=== PATIENT | female | born 1980 | race Caucasian/White ===

== ENCOUNTER → 2022-10-21 | Outpatient (CLI) | payer BC, SELFPAY ==
[2022-10-21 13:07] LABS: T3 Total - Triiodothyronine 1.15 ng/mL (0.6-1.81)
[2022-10-21 13:37] LABS: T4 Free Direct 1.13 ng/dL (0.76-1.46)
[2022-10-23 19:28] LABS: Thyroid Peroxidase AB 14 IU/mL (0-34)
== END | disposition home or self-care (01) ==
LOC: MTLAB 10:22
PROVIDERS: PCP Internal Medicine; Referring Provider Dermatology Pediatric Dermatology; Visit Provider Dermatology Pediatric Dermatology
DX: L50.3 Dermatographic urticaria (principal); E04.1 Nontoxic single thyroid nodule
CPT/HCPCS: 36415; 84439; 84443; 84480; 86376

== ENCOUNTER → 2023-03-29 | Outpatient (CLI) | payer BC, SELFPAY ==
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
== END | disposition home or self-care (01) ==
PROVIDERS: PCP Internal Medicine; Referring Provider Dermatology; Visit Provider Dermatology
DX: T63.511A Toxic effect of contact with stingray, accidental (unintentional), initial encounter (principal)
CPT/HCPCS: 73630; 87070; 87205

== ENCOUNTER → 2024-02-15 | Outpatient (CLI) | payer BC, SELFPAY ==
[2024-02-15 15:37] LABS: Absolute Lymphocyte Count 1.85 X10^3/uL (0.83-4.51); Basophil# 0.04 X10^3/uL; Basophil% 0.7 % (0-1); Eosinophil# 0.08 X10^3/uL; Eosinophils% 1.5 % (0-5); Hematocrit 40.6 % (37-47); Hemoglobin 13.1 g/dL (12.0-15.0); Lymphocyte # 1.85 X10^3/ul (0.83-4.51); Lymphocyte % 34.3 % (19-41); Mean Corp Hgb Conc 32.3 g/dL (32-36); Mean Corpuscular Hgb 30.6 pg (27.0-32.0); Mean Corpuscular Volume 94.9 fL (81-99); Mean Platelet Vol. 10.7 fl (6.2-12.0); Monocyte# 0.47 X10^3/uL; Monocyte% 8.7 % (0-10); NRBC Flagged by Analyzer 0 % (0-5); Neutrophil # 2.95 X10^3/uL (2.7-7.7); Neutrophil % 54.6 % (47-70); Platelet Count 278 K/mm3 (150-450); RBC Distribution Width CV 12.9 % (11.6-14.6); Red Blood Count 4.28 M/mm3 (4.2-5.4); White Blood Count 5.4 K/mm3 (4.4-11.0)
[2024-02-15 15:53] LABS: ALB/GLOB Ratio 1.2 RATIO (0.9-2.4); AST(SGOT) 16 U/L (15-37); Alanine Aminotransfer ALT/SGPT 18 U/L (13-56); Albumin, Serum 3.8 g/dL (3.2-5.0); Alkaline Phosphatase 38 U/L (45-117); Anion Gap 6 (5-15); BUN 10 mg/dL (7-18); BUN/Creat Ratio 13.3 RATIO (10-20); Calcium,Total 8.9 mg/dL (8.5-10.1); Chloride 107 mmol/L (98-107); Cholesterol 173 mg/dL (200); Creatinine, Serum 0.75 mg/dL (0.55-1.02); EST Glomerular Filtration Rate 90 mL/min (>60); Est Glom Filt Rate - Afr Amer 109 mL/min (>60); Globulin 3.3 g/dL (2.2-4.2); Glucose 92 mg/dL (74-106); High Density Lipoprotein 55 mg/dL; Potassium 3.6 mmol/L (3.5-5.1); Protein, Total 7.1 g/dL (6.4-8.2); Sodium Level 140 mmol/L (136-145); Triglycerides 102 mg/dL; Very Low Density Lipoprotein 20 mg/dL (5-40)
== END | disposition home or self-care (01) ==
LOC: MFPLAB 12:09
PROVIDERS: PCP Internal Medicine; Visit Provider Family Medicine
DX: Z13.220 Encounter for screening for lipoid disorders (principal); K21.9 Gastro-esophageal reflux disease without esophagitis
CPT/HCPCS: 36415; 80053; 80061; 85025

== ENCOUNTER 2024-10-02 07:41 | Outpatient (RCR) | payer OTHER, SELFPAY ==
--- NOTE | 2024-10-02 08:47 | HP.PTEVAL_ITS ---
Patient's Visit Information Visit Information Visit Information: WES MCGOVERN is a 44 year old F referred to Physical Therapy by JOHN Ferreira with a diagnosis of L lateral epicondylitis. Date of Evaluation: 10/02/24 Physical Therapist: Ashu Zacarias, DPT, OCS, CSCS Visit Plan Frequency: Every Other Week Duration: 2 Months Plan: Pt to do wrist extensor stretch adn aggressive cervical ret ext at home and check with OBGYN on armpit pain(appointment mid October) Will progress next session with eccentric wriwst strength adn further bracing or activity modifciaiton for lat epicondylitis. Progression of cervical progression of forces and strength for posture c/s RC and scap strength as needed for possible L shoulder impingement IE wrist extensor stretch 30 5x, cervical ret and ext with OP 10x 8x/day for scap, posture, activity modificaiton with driving and typing, benefits of brace for wrist. Subjective Subjective: Pain under la arm in armpit area. Had cyst last spring on breast and that turned out fine. Started getting pain under that arm this fall. OBGYN is f/u with breast tissue. pain is in the armpit since July insidiously. Also gets L lateral elbow pain starting 2 months ago insidiously. Armpit pain 2/10 intermittent with driving(drives with L arm up in the air. Worse with typing and driving while doing them. No lingering afterwards. Elbow pain 2/10 intermittent, with driving and typing. Neck pain is not an issue but L scapula noticeable. Sleeping is Ok. 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 Hobbies: walks. Basic ADLs all I. Pain armpit and elbow: Pain Intensity (Out of 10): 0 Pain Intensity Range: 0 and 2 Objective Objective: Postuer is forward head adn protracted sca slightly. Palpation is tender under humeral head in L arm pit and at supra insertion as well as slightly lat epicondyle L elbow and L scapula. Scapular AROM WFL B without pain. cervical aROM gives L scap pain end range extension only. Shoulder aROM WFL, slight end range pain flexion in arm pit, full rotations and elbow and wrist and thumb are full 2/3 reflexes R and L bi and tri No numbness or sensory deficitis to gross light touch in UE B. strength. shoulder without pain flexion and abduction 4- er pain under L armpit 3+ vs 4- on R, IR 4- B no pain. biceps and triceps 4/5 without pain wrist extension painful L 4 and R not painful and 4, 4+ wrist flexion B, thumb extension 4 B. + lat epicondyle test L + c/s compression L - HK, - neer, - sulcus, - labral test L. Balance/Special Test Scores Quick DASH Score: 2.2725 Goals Goal 1:: full cervical aROM without pain in scapula Goal Time Frame: 4-6 Weeks Goal 2:: I management of L lateral epicondylitis and upper half strength Goal Time Frame: 4-6 Weeks Goal 3:: Patient feel 75% better in all pain complain ts at scap, elbow and armpit. Goal Time Frame: 4-6 Weeks Goal 4:: perfect quickdash score. Goal Time Frame: 4-6 Weeks Rehabilitation Potential Physical Therapy Diagnosis: L elbow, scap and armpit pain causing uncomfortable funciton Rehabilitation Potential: Fair Anticipated Interventions Patient/Client Instruction: Educate patient on: Condition and Plan of Care For the Purpose of:: To decrease pain, To increase ROM, To improve nutrient delivery to tissue and To increase tolerance to activity/condition/position Therapeutic Exercise to Include: Strength training, Postural training, Flexibilty training, Passive ROM and Active ROM For the Purpose of:: To decrease pain, To increase ROM, To improve nutrient delivery to tissue, To improve muscle performance and motor function, To increase tolerance to activity/condition/position and To increase flexibili ty/ROM Manual Therapy Techniques to Include: Mobilization, Passive ROM, Soft tissue mobilization and Other For the Purpose of:: To decrease pain, To increase ROM, To improve nutrient delivery to tissue, To improve muscle performance and motor function and To increase tolerance to activity/condition/position Cryotherapy (ice pack, ice massage): Yes For the Purpose of:: To decrease swelling/inflammation Text: Thank you for the opportunity to evaluate your patient. For Medicare and Medicare HMO plans, please review the plan of care and approve it. It will need to be FAXED BACK to us at [phone] for Medicare purposes. For Medicare only, by signing this I certify the plan of care. Please let me know if there are questions or concerns regarding this plan of care. Physician Signature: Date:
--- NOTE | 2024-12-04 14:10 | HP.PT.NRP ---
Patient Information Patient Information: WES MCGOVERN was seen in my office for initial evaluation on 10/02/24. The following Plan of Care was established for this patient: POC Established Initial Frequency: Every Other Week Initial Duration: 2 Months Anticipated Interventions Patient/Client Instruction: Educate patient on: Condition and Plan of Care For the Purpose of:: To decrease pain, To increase ROM, To improve nutrient delivery to tissue and To increase tolerance to activity/condition/position Therapeutic Exercise to Include: Strength training, Postural training, Flexibilty training, Passive ROM and Active ROM For the Purpose of:: To decrease pain, To increase ROM, To improve nutrient delivery to tissue, To improve muscle performance and motor function, To increase tolerance to activity/condition/position and To increase flexibility/ROM Manual Therapy Techniques to Include: Mobilization, Passive ROM, Soft tissue mobilization and Other For the Purpose of:: To decrease pain, To increase ROM, To improve nutrient delivery to tissue, To improve muscle performance and motor function and To increase tolerance to activity/condition/position Cryotherapy (ice pack, ice massage): Yes For the Purpose of:: To decrease swelling/inflammation Last Seen Last Seen: This patient was last seen in our office 10/02/24. Pertinent comments regarding their Physical therapy will appear below: Pt seen for IE and POC established and HEP given. she cancelled her next visit stating the exercises were really helping. she did not attnd any further visits. It has been over two months and I will discontinue from my care. At this point I will be discontinuing this patient from physical therapy. I would be happy to see this patient again in the future if found appropriate by the physician. Thank you! Ashu Zacarias, DPT, OCS, CSCS Balance/Gait/Functional tests Balance/Special Test Scores Quick DASH Score: 2.7205
== END 2024-10-02 19:00 | disposition home or self-care (01) ==
LOC: PT 07:41
PROVIDERS: PCP Internal Medicine
DX: M77.12 Lateral epicondylitis, left elbow (principal); M25.512 Pain in left shoulder
CPT/HCPCS: 97110; 97162

== ENCOUNTER → 2025-05-16 | Outpatient (CLI) | payer OTHER, SELFPAY ==
[2025-05-16 12:29] LABS: Hematocrit 40.7 % (37-47); Hemoglobin 12.9 g/dL (12.0-15.0); Immature Granulocytes Count 0.020 X10^3/uL (0.0-0.0); Mean Corp Hgb Conc 31.7 g/dL (32-36); Mean Corpuscular Volume 96.9 fL (81-99); Mean Platelet Vol. 10.4 fl (6.2-12.0); NRBC Flagged by Analyzer 0 % (0-5); Platelet Count 268 K/mm3 (150-450); RBC Distribution Width CV 12.6 % (11.6-14.6); RBC Distribution Width SD 45.0 fl (35.1-43.9); Red Blood Count 4.20 M/mm3 (4.2-5.4); White Blood Count 7.9 K/mm3 (4.4-11.0)
[2025-05-16 13:30] LABS: AST(SGOT) 15 U/L (<=31); Alanine Aminotransfer ALT/SGPT 11 U/L (<=34); Albumin, Serum 4.1 g/dL (3.5-5.0); Alkaline Phosphatase 49 U/L (35-104); Anion Gap 12 (5-15); BUN 7 mg/dL (4-19); BUN/Creat Ratio 9.1 RATIO (10-20); Calcium,Total 9.1 mg/dL (7.6-11.0); Carbon Dioxide 24.0 mmol/L (21.0-32.0); Chloride 101 mmol/L (98-108); Globulin 2.9 g/dL (2.2-4.2); Glucose 115 mg/dL (70-99); Potassium 3.4 mmol/L (3.3-5.1)
== END | disposition home or self-care (01) ==
LOC: MFPLAB 10:26
PROVIDERS: PCP Family Medicine
DX: R53.83 Other fatigue (principal)
CPT/HCPCS: 36415; 80053; 84443; 85025

== ENCOUNTER → 2025-05-17 | Outpatient (CLI) | payer OTHER, SELFPAY ==
[2025-05-17 18:29] LABS: Hematocrit 39.2 % (37-47); Hemoglobin 12.9 g/dL (12.0-15.0); Immature Granulocytes Count 0.030 X10^3/uL (0.0-0.0); Mean Corp Hgb Conc 32.9 g/dL (32-36); Mean Corpuscular Volume 94.0 fL (81-99); Mean Platelet Vol. 10.4 fl (6.2-12.0); NRBC Flagged by Analyzer 0 % (0-5); Platelet Count 262 K/mm3 (150-450); RBC Distribution Width CV 12.5 % (11.6-14.6); RBC Distribution Width SD 43.5 fl (35.1-43.9); Red Blood Count 4.17 M/mm3 (4.2-5.4); White Blood Count 7.0 K/mm3 (4.4-11.0)
[2025-05-17 18:37] LABS: CRP 67.10 mg/L (0.0-3.0)
[2025-05-19 11:08] LABS: Lyme Scn Total Ab w/Rflx Negative (Negative)
== END | disposition home or self-care (01) ==
LOC: MFPLAB 16:01
PROVIDERS: PCP Family Medicine; Referring Provider Family Medicine; Visit Provider Family Medicine
DX: R53.81 Other malaise (principal)
CPT/HCPCS: 36415; 85025; 86140; 86618

== ENCOUNTER → 2025-06-12 | Outpatient (CLI) | payer OTHER, SELFPAY ==
--- NOTE | 2025-06-12 17:00 | RAD_ITS ---
PROCEDURE: CHEST PA AND LATERAL 06/12/2025 REASON FOR EXAM: COUGH TECHNIQUE: CHEST PA AND LATERAL COMPARISON: None. FINDINGS: LUNGS AND PLEURA: No focal airspace consolidation. Minimal biapical pleural thickening. No pleural effusion or pneumothorax. HEART AND MEDIASTINUM: The heart size and mediastinal contours are normal. BONES: No acute osseous abnormality. RAD/Chest PA and Lateral IMPRESSION: NO ACUTE FINDINGS. Reading Location: [id number]
[2025-06-12 17:59] LABS: Hematocrit 40.9 % (37-47); Hemoglobin 13.4 g/dL (12.0-15.0); Immature Granulocytes Count 0.020 X10^3/uL (0.0-0.0); Mean Corp Hgb Conc 32.8 g/dL (32-36); Mean Corpuscular Volume 94.7 fL (81-99); Mean Platelet Vol. 10.4 fl (6.2-12.0); NRBC Flagged by Analyzer 0 % (0-5); Platelet Count 267 K/mm3 (150-450); RBC Distribution Width CV 12.7 % (11.6-14.6); RBC Distribution Width SD 44.8 fl (35.1-43.9); Red Blood Count 4.32 M/mm3 (4.2-5.4); White Blood Count 7.3 K/mm3 (4.4-11.0)
[2025-06-14 15:08] LABS: PROEL- A/G Ratio 1.5 (0.7-1.7); PROEL- Albumin 4.3 g/dL (2.9-4.4); PROEL- Alpha-1 Globulin 0.2 g/dL (0.0-0.4); PROEL- Alpha-2 Globulin 0.7 g/dL (0.4-1.0); PROEL- Beta Globulin 0.9 g/dL (0.7-1.3); PROEL- Gamma Globulin 1.0 g/dL (0.4-1.8); PROEL- Globulin, Total 2.8 g/dL (2.2-3.9); PROEL- TOTAL PROTEIN 7.1 g/dL (6.0-8.5); PROEL-M-Spike Not Observed g/dL (Not Observed)
[2025-06-15 14:08] LABS: ANTINUCLEAR ANTIBODIES DIRECT Negative (Negative); Anti-Chromatin <0.2 AI (0.0-0.9); Anti-Jo <0.2 AI (0.0-0.9); Anti-dsDNA Ab <1 IU/mL (0-9); Anti-ribosomal P Antibodies <0.2 AI (0.0-0.9); SJOGREN'S Anti-SS-A test < 0.2 AI (0.0-0.9); SJOGREN'S Anti-SS-B test < 0.2 AI (0.0-0.9); Smith/RNP Ab <0.2 AI (0.0-0.9)
== END | disposition home or self-care (01) ==
PROVIDERS: PCP Family Medicine; Referring Provider Family Medicine; Visit Provider Family Medicine
DX: R05.9 Cough, unspecified (principal); R79.82 Elevated C-reactive protein (CRP)
CPT/HCPCS: 36415; 71046; 84165; 84443; 85025; 85652; 86038; 86225; 86235; 86431

== ENCOUNTER → 2025-10-05 | Outpatient (CLI) | payer OTHER, SELFPAY ==
--- OUTSIDE RECORDS SUMMARY | 2025-10-05 10:58 | XMS RPT_ITS | CCD ---
Author Organization [facility] Care Team Providers Care X Ray Technologist Name Role Phone Marvel VILLALOBOS, Mere Primary Care Provider SELF, SELF Referring Unavailable GANTA, MERE C Primary Care Unavailable CECE GILMORE Attending Unavaila ble CONSULT, PODIATRY Consulting Unavailable GANTA, MERE C Primary Care Unavailable MURALI FLORIAN Attending Unavailable Mere Grier MD Primary Care Provider REGINE PEÑA Referring Unavailable GANTA, MERE Primary Care Unavailable HOMA PACE Attending Unavailable GANTA, MERE Primary Care Unavailable PUSHPA LARIOS Referring Unavailable Mere Grier MD Primary Care Provider Manuela Quintanilla PA-C Unavailable Older SLOT FLOOR ATTENDANT.RECEPTIONIST/TELEPHONE OPERATOR, Alina Unavailable Tessa Burt PA-C Unavailable REGINE PEÑA Attending Unavailable GANTA, MERE Primary Care Unavailable SUMAN MOREIRA Attending Unavailable GANTA, MERE Primary Care Unavailable REGINE PEÑA Referring Unavailable GANTA, MERE Primary Care Unavailable REGINE PEÑA Referring Unavailable GANTA, MERE Primary Care Unavailable PROVIDER, UNKNOWN Referring Unavailable GANTA, MERE Primary Care Unavailable PROVIDER, UNKNOWN Referring Unavailable GANTA, MERE Primary Care Unavailable Dr. Ashu Richard MD Primary Care Provider [facility] [place] Attending Provider Dr. Ashu Richard MD Attending Provider [phone] Dr. Ashu Richard MD Referring Provider Ashu Richard Attending Unavailable Ashu Richard Primary Care Unavailable Ashu Richard Referring Unavailable Ashu Richard Primary Care Unavailable McMorrow GRAIN ELEVATOR MAN, Hamlet Attending Unavailable Mere Grier Primary Care Unavailable McMorrow GRAIN ELEVATOR MANHamlet Referring Unavailable McMorrow GRAIN ELEVATOR MAN, Hamlet Attending Unavailable Ashu Richard Attending Unavailable Ashu Richard Primary Care Unavailable Ashu Richard Referring Unavailable Medications Current Medications Medication Drug Class(es) Dates Sig (Normalized) Sig (Original) cefdinir 300 mg oral capsule (1 source) Cephalosporin Antibacterial take 1 capsule by mouth every twelve hours Cefdinir (OMNICEF) 300 MG capsule Take 1 capsule by mouth every 12 hours. 0 Active desogestrel 0.15 mg / ethinyl estradiol 0.03 mg oral tablet (1 source) Progestin, Estrogen Start: 06-28-2014 desogestrel-ethiny l estradiol (APRI) 0.15-30 MG-MCG Tab take 1 tablet by mouth daily. 28 tablet 11 06/28/2014 Active doxycycline monohydrate 100 mg oral capsule (1 source) Tetracycline-class Drug take 1 capsule by mouth every twelve hours Doxycycline monohydrate 100 MG capsule Take 1 capsule by mouth every 12 hours. 0 Active levoFLOXacin 750 mg oral tablet (1 source) Quinolone Antimicrobial Start: 04-04-2023 End: 04-14-2023 take 1 tablet by mouth every twenty-four hours levoFLOXacin 750 MG tablet Take 1 tablet by mouth every 24 hours for 10 days. 10 tablet 0 04/04/2023 04/14/2023 Active linezolid 600 mg oral tablet (2 sources) Oxazolidinone Antibacterial Start: 04-03-2023 End: 04-14-2023 take 1 tablet by mouth twice daily Linezolid 600 MG tablet Take 1 tablet by mouth 2 times daily for 10 days. 20 tablet 0 04/04/2023 04/14/2023 Active Completed/Discontinued Medications Medication Drug Class(es) Dates Sig (Normalized) Sig (Original) acetaminophen 325 mg oral tablet (1 source) Start: 04-02-2023 End: 04-04-2023 take 1 tablet by mouth every four hours as needed Acetaminophen (TYLENOL) tablet 650 mg aluminum hydroxide 40 mg/ml / magnesium hydroxide 40 mg/ml / simethicone 4 mg/ml oral suspension (1 source) Start: 04-02-2023 End: 04-04-2023 take 30 mL by mouth every six hours as needed alum/mag hydrox.-simethicon e oral suspension 30 mL cefepime 2000 mg injection (2 sources) Cephalosporin Antibacterial Start: 04-03-2023 End: 04-04-2023 take 2 g intravenously every eight hours ceFEPIme (MAXIPIME) 2 g in dextrose 100 ml premix IVPB gadoterate Meglumine (DOTAREM) 5 MMOL/10ML injection 3-60 mL (1 source) Start: 04-02-2023 End: 04-02-2023 gadoterate Meglumine (DOTAREM) 5 MMOL/10ML injection 3-60 mL 10 ml sodium chloride 9 mg/ml injection (1 source) Start: 04-02-2023 End: 04-02-2023 Sodium chloride (PF) 0.9 % injection 1-100 mL Start: 04-02-2023 End: 04-02-2023 Sodium chloride (PF) 0.9 % i njection 1-100 mL 200 ml vancomycin 5 mg/ml injection (1 source) Glycopeptide Antibacterial Start: 04-02-2023 End: 04-03-2023 take 1000 mg intravenously every twelve hours Vancomycin HCl in NaCl (VANCOCIN) 1,000 mg in 200 ml NS premix IVPB Vancomycin HCl in NaCl (Vancocin) 1,250 mg 287.5 ml premade IVPB (1 source) Start: 04-02-2023 End: 04-02-2023 Vancomycin HCl in NaCl (Vancocin) 1,250 mg 287.5 ml premade IVPB Problems Active Problems Problem Classification Problem Date Documented Da te Episodic/Chronic Gastrointestinal hemorrhage (1 source) Rectal hemorrhage; Translations: [Hemorrhage of anus and rectum] Episodic Immunizations and screening for infectious disease (7 sources) Patient encounter status; Translations: [Encounter for screening for human immunodeficiency virus [HIV]] Episodic Malaise and fatigue (2 sources) Other malaise; Translations: [Other fatigue] Onset: 5 Episodic Nonmalignant breast conditions (9 sources) Pain of breast; Translations: [Mastodynia] Onset: 5 Episodic Other injuries and conditions due to external causes (1 source) Injury of right foot; Translations: [Unspecified injury of right foot, initial encounter] 04-03-2023 Episodic Other injuries and conditions due to external causes (2 sources) Unspecified injury of right foot, initial encounter; Translations: [Unspecified injury of right foot, initial encounter] Onset: 3 Episodic Residual codes; unclassified (4 sources) Family history of breast cancer; Translations: [Family history of malignant neoplasm of breast] Onset: 4 06-28-2014 Episodic Residual codes; unclassified (2 sources) Family history of malignant neoplasm of ovary; Translations: [Family history of malignant neoplasm of ovary] Onset: 4 06-28-2014 Episodic Residual codes; unclassified (1 source) Family history of malignant neoplasm of ovary; Translations: [Family history of malignant neoplasm of ovary] Onset: 3 Episodic Unclassified (1 source) Cough, unspecified; Translations: [Cough, unspecified] Onset: 5 Past or Other Problems Problem Classification Problem Date Documented Da te Episodic/Chronic Other connective tissue disease (1 source) Lateral epicondylitis, unspecified elbow; Translations: [Lateral epicondylitis, unspecified elbow] Onset: 12-08-2024 Episodic Other female genital disorders (18 sources) Endocervical polyp; Translations: [Polyp of cervix uteri] Onset: 06-20-2015 06-20-2015 Episodic Other non-traumatic joint disorders (1 source) Pain in left shoulder; Translations: [Pain in left shoulder] Onset: 12-08-2024 Episodic Other and delivery including normal (1 source) Normal ; Translations: [Encounter for supervision of other normal , unspecified trimester] Onset: 06-21-2012 06-21-2012 Episodic Other screening for suspected conditions (not mental disorders or infectious disease) (5 sources) Mammography abnormal; Translations: [Other abnormal and inconclusive findings on diagnostic imaging of breast] Onset: 01-19-2024 01-20-2024 Episodic Residual codes; unclassified (2 sources) Family history of malignant neoplasm of breast; Translations: [Family history of malignant neoplasm of breast] Onset: 07-16-2023 Episodic Results Test Name Value Interpretation Reference Range Facility [id number] 06-19-2025 [facility] Misc. COMMENT Normal . [facility] Comment on above: Order Comment: [id number] TICKBORNE PANEL SERUM RT Result Comment: Test Ordered: [id number] Tick-borne Disease Ab Profile Test(s) 807338-[id number] microti IgG was developed and its performance characteristics determined by [facility]. It has not been cleared or approved by the Food and Drug Administration. Lyme Total Antibody HAWA Negative CB Reference Range: Negative Lyme antibodies not detected. Reflex testing is not indicated. No laboratory evidence of infection with B. burgdorferi (Lyme disease). Negative results may occur in patients recently infected (less than or equal to 14 days) with B. burgdorferi. If recent infection is suspected, repeat testing on a new sample collected in 7 to 14 days is recommended. Babesia microti IgG <1:10 BN Reference Range: Neg:<1:10 E. chaffeensis IgG Negative BN Reference Range: Neg:<1:64 A. phagocytophilum IgG Negative BN Reference Range: Neg:<1:64 Result Comments: Comment BN Reference Range: . Antibody titers may be negative in the first 7-10 days of illness. A four-fold rise in IgG antibody titers for Babesia microti, Anaplasma phagocytophilum, and/or Ehrlichia chaffeensis in paired samples (acute and convalescent) supports the diagnosis of babesiosis, anaplasmosis, and/or ehrlichiosis, respectively. Performed at: [address] [id number] Career And Technology Education Teacher: Rosas Molina PhD, Phone: [phone] Performed at: [address] [id number] Career And Technology Education Teacher: Michelle Nichols MD, Phone: [phone] Performed By: #### L 3100.5660, L3100.7950, L101.9900, L3100.5475, L3100.5430, L501.9520, L505.7010, L100.0100, L3410.9992 #### [facility] [address] [place], [address] ANNALISA w/Comprehensiveon 2024 ANNALISA TABLE Comment Normal . [facility] Comment on above: Result Comment: Auto antibody Disease Association Condition Frequency Antinuclear Antibody, SLE, mixed connective Direct (ANNALISA-D) tissue diseases dsDNA SLE 40 - 60% Chromatin Drug induced SLE 90% SLE 48 - 97% SSA (Ro) SLE 25 - 35% Sjogren's Syndrome 40 - 70% Lupus 100% SSB (La) SLE 10% Sjogren's Syndrome 30% Sm (anti-Richard) SLE 15 - 30% INSTRUCTIONAL SERVICES SPECIALIST Mixed Connective Tissue Disease 95% (U1 nRNP, SLE 30 - 50% anti-ribonucleoprotein) Polymyositis and/or Dermatomyositis 20% Scl-70 (antiDNA Scleroderma (diffuse) 20 - 35% topoisomerase) Crest 13% Margaret-1 Polymyositis and/or Dermatomyositis 20 - 40% Centromere B Scleroderma - Crest variant 80% Ribosomal P SLE 10 - 20% Performed By: #### L 3100.3450, L3100.7950, L101.9900, L3100.5475, L3100.5430, L501.9520, L505.7010, L100.0100, L3410.9992 #### [facility] [address] [place], [address] ANTI-DNA (DS)AB <1 Normal 0-9 [facility] Comment on above: Result Comment: Nega tive <5 Equivocal 5 - 9 Positive >9 Performed By: #### L 3100.3450, L3100.7950, L101.9900, L3100.5475, L3100.5430, L501.9520, L505.7010, L100.0100, L3410.9992 #### [facility] [address] [place], [address] ANTI-SS-A < 0.2 Normal 0.0-0.9 [facility] Comment on above: Performed By: #### L 3100.3450, L3100.7950, L101.9900, L3100.5475, L3100.5430, L501.9520, L505.7010, L100.0100, L3410.9992 #### [facility] [address] [place], [address] ANTI-SS-B < 0.2 Normal 0.0-0.9 [facility] Comment on above: Performed By: #### L 3100.3450, L3100.7950, L101.9900, L3100.5475, L3100.5430, L501.9520, L505.7010, L100.0100, L3410.9992 #### [facility] [address] [place], [address] Antiribosomal P <0.2 Normal 0.0-0.9 [facility] Comment on above: Performed By: #### L 3100.3450, L3100.7950, L101.9900, L3100.5475, L3100.5430, L501.9520, L505.7010, L100.0100, L3410.9992 #### [facility] [address] [place], [address] ANTINUCLEAR ANTIBODIES DIREC Ton 06-15-2025 ANNAILSA,DIRECT Negative Normal Negative [facility] Comment on above: Performed By: #### L 3100.3450, L3100.7950, L101.9900, L3100.5475, L3100.5430, L501.9520, L505.7010, L100.0100, L3410.9992 #### [facility] [address] [place], [address] Antinuclear Antibody, IFAon 06-15-2025 ANNALISA, IFA Negative Normal . [facility] Comment on above: Result Comment: Nega tive <1:80 Borderline 1:80 Positive >1:80 ICAP nomenclature: AC-0 For more information about Hep-2 cell patterns use ANApatterns.org, the official website for the International Consensus on Antinuclear Antibody (ANNALISA) Patterns (ICAP). Performed at: [facility] [id number] Career And Technology Education Teacher: Rosas Molina PhD, Phone: [phone] Performed By: #### L 3100.3450, L3100.7950, L101.9900, L3100.5475, L3100.5430, L501.9520, L505.7010, L100.0100, L3410.9992 #### [facility] [address] [place], [address] Protein Electroph, Son 06-14 Albumin [Mass/Vol] 4.3 g/dL Normal 2.9-4.4 [facility] Comment on above: Performed By: #### L 3100.3450, L3100.7950, L101.9900, L3100.5475, L3100.5430, L501.9520, L505.7010, L100.0100, L3410.9992 #### [facility] [address] [place], [address] Albumin/Globulin [Mass ratio] 1.5 {ratio} Normal 0.7-1.7 [facility] Comment on above: Performed By: #### L 3100.3450, L3100.7950, L101.9900, L3100.5475, L3100.5430, L501.9520, L505.7010, L100.0100, L3410.9992 #### [facility] [address] [place], [address] ALPHA-1 GLOBUL 0.2 g/dL Normal 0.0-0.4 [facility] Comment on above: Performed By: #### L 3100.3450, L3100.7950, L101.9900, L3100.5475, L3100.5430, L501.9520, L505.7010, L100.0100, L3410.9992 #### [facility] [address] [place] [place], [address] ALPHA-2 GLOBUL 0.7 g/dL Normal 0.4-1.0 [facility] Comment on above: Performed By: #### L 3100.3450, L3100.7950, L101.9900, L3100.5475, L3100.5430, L501.9520, L505.7010, L100.0100, L3410.9992 #### [facility] [address] [facility] [place], [address] BETA GLOBULIN 0.9 g/dL Normal 0.7-1.3 [facility] Comment on above: Performed By: #### L 3100.3450, L3100.7950, L101.9900, L3100.5475, L3100.5430, L501.9520, L505.7010, L100.0100, L3410.9992 #### [facility] [address] [facility] [place], [address] GAMMA GLOBULIN 1.0 g/dL Normal 0.4-1.8 [facility] Comment on above: Performed By: #### L 3100.3450, L3100.7950, L101.9900, L3100.5475, L3100.5430, L501.9520, L505.7010, L100.0100, L3410.9992 #### [facility] [address] [facility] [place], [address] Globulin (S) [Mass/Vol] 2.8 g/dL Normal 2.2-3.9 [facility] Comment on above: Performed By: #### L 3100.3450, L3100.7950, L101.9900, L3100.5475, L3100.5430, L501.9520, L505.7010, L100.0100, L3410.9992 #### [facility] [address] [place], [address] INTERPRETATION Comment Normal . [facility] Comment on above: Result Comment: Prot ein electrophoresis scan will follow via computer, mail, or neurosurgeon delivery. Performed By: #### L 3100.3450, L3100.7950, L101.9900, L3100.5475, L3100.5430, L501.9520, L505.7010, L100.0100, L3410.9992 #### [facility] [address] [place], [address] M-SPIKE Not Observed Normal Not Observed [facility] Comment on above: Performed By: #### L 3100.3450, L3100.7950, L101.9900, L3100.5475, L3100.5430, L501.9520, L505.7010, L100.0100, L3410.9992 #### [facility] [address] [place], [address] NOTE: Comment Normal . [facility] Comment on above: Result Comment: The SPE pattern appears unremarkable. Evidence of monoclonal protein is not apparent. Performed at: [address] [id number] Career And Technology Education Teacher: Rosas Molina PhD, Phone: [phone] Performed By: #### L 3100.3450, L3100.7950, L101.9900, L3100.5475, L3100.5430, L501.9520, L505.7010, L100.0100, L3410.9992 #### [facility] [address] [place], [address] Protein [Mass/Vol] 7.1 g/dL Normal 6.0-8.5 [facility] Comment on above: Performed By: #### L 3100.3450, L3100.7950, L101.9900, L3100.5475, L3100.5430, L501.9520, L505.7010, L100.0100, L3410.9992 #### [facility] [address] [place], [place], [id number] Absolute lymphocyte countOrd ered By: Ashu Richard on 06-12-2025 Lymphocytes Auto (Unsp spec) [#/Vol] 2.09 10*3/uL 0.83-4.51 [facility] Absolute neutrophil countOrd ered By: Ashu Richard on 06-12-2025 Neutrophils (Bld) [#/Vol] 4.5 10*3/uL 2.0-7.7 [facility] Albumin Elph [Mass/Vol]Order ed By: Ashu Richard on 06-12-2025 Albumin [Mass/Vol] 4.3 g/dL 2.9-4.4 [facility] Automated lymphocyte count a s percentage of total leukocytesOrdered By: Ashu Richard on 06-12-2025 Lymphocytes/100 WBC Auto (Unsp spec) 28.7 % 19-41 [facility] Basophil percentageOrdered B y: Ashu Richard on 06-12-2025 Basophils/100 WBC (Bld) 0.7 % 0-1 [facility] CBC W/Diff, Automatedon 05-19 Absolute Lymph 2.09 X10 3/uL Normal 0.83-4.51 [facility] Comment on above: Performed By: #### L 3100.3450, L3100.7950, L101.9900, L3100.5475, L3100.5430, L501.9520, L505.7010, L100.0100, L3410.9992 #### [facility] [address] [place], [place], [id number] Absolute Neut 4.5 X10 3/uL Normal 2.0-7.7 [facility] Comment on above: Performed By: #### L 3100.3450, L3100.7950, L101.9900, L3100.5475, L3100.5430, L501.9520, L505.7010, L100.0100, L3410.9992 #### [facility] [address] [place], [address] Basophils/100 WBC (Bld) 0.7 % Normal 0-1 [facility] Comment on above: Performed By: #### L 3100.3450, L3100.7950, L101.9900, L3100.5475, L3100.5430, L501.9520, L505.7010, L100.0100, L3410.9992 #### [facility] [address] [place], [address] Eosinophils/100 WBC (Bld) 1.4 % Normal 0-5 [facility] Comment on above: Performed By: #### L 3100.3450, L3100.7950, L101.9900, L3100.5475, L3100.5430, L501.9520, L505.7010, L100.0100, L3410.9992 #### [facility] [address] [place], [place], [id number] (904) Erythrocyte distribution width (RBC) [Ratio] 12.7 % Normal 11.6-14.6 [facility] Comment on above: Performed By: #### L 3100.3450, L3100.7950, L101.9900, L3100.5475, L3100.5430, L501.9520, L505.7010, L100.0100, L3410.9992 #### [facility] [address] [place], [address] Hematocrit (Bld) [Volume fraction] 40.9 % Normal 37-47 [facility] Comment on above: Performed By: #### L 3100.3450, L3100.7950, L101.9900, L3100.5475, L3100.5430, L501.9520, L505.7010, L100.0100, L3410.9992 #### [facility] [address] [place], [address] Hemoglobin (Bld) [Mass/Vol] 13.4 g/dL Normal 12.0-15.0 [facility] Comment on above: Performed By: #### L 3100.3450, L3100.7950, L101.9900, L3100.5475, L3100.5430, L501.9520, L505.7010, L100.0100, L3410.9992 #### [facility] [address] [place], [address] IG% 0.300 Normal 0.0-0.9 [facility] Comment on above: Result Comment: IG% - Immature Granulocytes (promyelocytes, myelocytes and metamyelocytes) > 1% indicates that a LEFT SHIFT is Present. Performed By: #### L 3100.3450, L3100.7950, L101.9900, L3100.5475, L3100.5430, L501.9520, L505.7010, L100.0100, L3410.9992 #### [facility] [address] [place], [address] Lymphocytes/100 WBC (Bld) 28.7 % Normal 19-41 [facility] Comment on above: Performed By: #### L 3100.3450, L3100.7950, L101.9900, L3100.5475, L3100.5430, L501.9520, L505.7010, L100.0100, L3410.9992 #### [facility] [address] [place], [address] MCH (RBC) [Entitic mass] 31.0 pg Normal 27.0-32.0 [facility] Comment on above: Performed By: #### L 3100.3450, L3100.7950, L101.9900, L3100.5475, L3100.5430, L501.9520, L505.7010, L100.0100, L3410.9992 #### [facility] [address] [place], [address] MCHC (RBC) [Mass/Vol] 32.8 g/dL Normal 32-36 [facility] Comment on above: Performed By: #### L 3100.3450, L3100.7950, L101.9900, L3100.5475, L3100.5430, L501.9520, L505.7010, L100.0100, L3410.9992 #### [facility] [address] [place], [address] MCV (RBC) [Entitic vol] 94.7 fL Normal 81-99 [facility] Comment on above: Performed By: #### L 3100.3450, L3100.7950, L101.9900, L3100.5475, L3100.5430, L501.9520, L505.7010, L100.0100, L3410.9992 #### [facility] [address] [place], [address] Monocytes/100 WBC (Bld) 7.7 % Normal 0-10 [facility] Comment on above: Performed By: #### L 3100.3450, L3100.7950, L101.9900, L3100.5475, L3100.5430, L501.9520, L505.7010, L100.0100, L3410.9992 #### [facility] [address] [place], [address] Neutrophils/100 WBC (Bld) 61.2 % Normal 47-70 [facility] Comment on above: Performed By: #### L 3100.3450, L3100.7950, L101.9900, L3100.5475, L3100.5430, L501.9520, L505.7010, L100.0100, L3410.9992 #### [facility] [address] [place], [address] Nucleated RBC (Bld) [#/Vol] 0 10*3/uL Normal 0-5 [facility] Comment on above: Performed By: #### L 3100.3450, L3100.7950, L101.9900, L3100.5475, L3100.5430, L501.9520, L505.7010, L100.0100, L3410.9992 #### [facility] [address] [place], [address] Platelet mean volume (Bld) [Entitic vol] 10.4 fL Normal 6.2-12.0 [facility] Comment on above: Performed By: #### L 3100.3450, L3100.7950, L101.9900, L3100.5475, L3100.5430, L501.9520, L505.7010, L100.0100, L3410.9992 #### [facility] [address] [place], [address] Platelets (Bld) [#/Vol] 267 10*3/uL Normal 150-450 [facility] Comment on above: Performed By: #### L 3100.3450, L3100.7950, L101.9900, L3100.5475, L3100.5430, L501.9520, L505.7010, L100.0100, L3410.9992 #### [facility] [address] [place], [address] RBC (Bld) [#/Vol] 4.32 10*6/uL Normal 4.2-5.4 [facility] Comment on above: Performed By: #### L 3100.3450, L3100.7950, L101.9900, L3100.5475, L3100.5430, L501.9520, L505.7010, L100.0100, L3410.9992 #### [facility] [address] [place], [address] RDW SD 44.8 fl High 35.1-43.9 [facility] Comment on above: Performed By: #### L 3100.3450, L3100.7950, L101.9900, L3100.5475, L3100.5430, L501.9520, L505.7010, L100.0100, L3410.9992 #### [facility] [address] [place] [place], [address] WBC (Bld) [#/Vol] 7.3 10*3/uL Normal 4.4-11.0 [facility] Comment on above: Performed By: #### L 3100.3450, L3100.7950, L101.9900, L3100.5475, L3100.5430, L501.9520, L505.7010, L100.0100, L3410.9992 #### [facility] [address] [place], [place], [id number] Chest PA and Lateralon 06-12 Chest PA and Lateral [facility] Services [address] [place], [place] [address] Chest PA and Lateral MR#: [id number] Acct: [id number] Name: IRIS VACA Rep #: [id number] : 1980 F 44 From: Evelyn Bautista MD PCP: Dr. Ashu Richard MD Status: REG CLI Study: Chest PA and Lateral Date of Exam: 06/12/25 Exam# [id number] Ordering Dr: Ashu Richard MD PROCEDURE: CHEST PA AND LATERAL 06/12/2025 REASON FOR EXAM: COUGH TECHNIQUE: CHEST PA AND LATERAL COMPARISON: None. FINDINGS: LUNGS AND PLEURA: No focal airspace consolidation. Minimal biapical pleural thickening. No pleural effusion or pneumothorax. HEART AND MEDIASTINUM: The heart size and mediastinal contours are normal. BONES: No acute osseous abnormality. RAD/Chest PA and Lateral IMPRESSION: NO ACUTE FINDINGS. Reading Location: [facility] CC: Dr. Ashu Richard MD Wire Mesh Gate Assembler: Signed Normal [facility] Eosinophil percentageOrdered By: Ashu Richard on 06-12-2025 Eosinophils/100 WBC (Bld) 1.4 % 0-5 [facility] Erythrocyte Sed Rateon 06-12 SED RATE 9 mm/hr Normal 0-30 [facility] Comment on above: Performed By: #### L 3100.3450, L3100.7950, L101.9900, L3100.5475, L3100.5430, L501.9520, L505.7010, L100.0100, L3410.9992 #### [facility] [address] [place], [address] Erythrocyte distribution wid th ratioOrdered By: Ashu Richard on 06-12-2025 Erythrocyte distribution width (RBC) [Ratio] 12.7 % 11.6-14.6 [facility] Erythrocyte distribution wid th standard deviationOrdered By: Ashu Richard on 06-12-2025 Erythrocyte distribution width (RBC) [Ratio] 44.8 fl High 35.1-43.9 [facility] Erythrocyte sedimentation ra teOrdered By: Ashu Richard on 06-12-2025 ESR (Bld) [Velocity] 9 mm/h 0-30 [facility] Hematocrit Auto (Bld) [Volum e fraction]Ordered By: Ashu Richard on 06-12-2025 Hematocrit (Bld) [Volume fraction] 40.9 % 37-47 [facility] Hemoglobin measurementOrdere d By: Ashu Richard on 06-12-2025 Hemoglobin (Bld) [Mass/Vol] 13.4 g/dL 12.0-15.0 [facility] Immature granulocytes/100 WB C Auto (Bld)Ordered By: Ashu Richard on 06-12-2025 Immature granulocytes/100 WBC (Bld) 0.300 % 0.0-0.9 [facility] Comment on above: IG% - Immature Granu locytes (promyelocytes, myelocytes and metamyelocytes) > 1% indicates that a LEFT SHIFT is Present. MCV (mean corpuscular volume ) determinationOrdered By: Ashu Richard on 06-12-2025 MCV (RBC) [Entitic vol] 94.7 fL 81-99 [facility] Mean corpuscular hemoglobin (MCH) determinationOrdered By: Ashu iRchard on 06-12-2025 MCH (RBC) [Entitic mass] 31.0 pg 27.0-32.0 [facility] Mean corpuscular hemoglobin concentration (MCHC) determinationOrdered By: Ashu Richard on 06-12-2025 MCHC (RBC) [Mass/Vol] 32.8 g/dL 32-36 [facility] Mean platelet volume determi nationOrdered By: Ashu Richard on 06-12-2025 Platelet mean volume (Bld) [Entitic vol] 10.4 fL 6.2-12.0 [facility] Monocyte percentageOrdered B y: Ashu Richard on 06-12-2025 Monocytes/100 WBC (Bld) 7.7 % 0-10 [facility] Neutrophil percentageOrdered By: Ashu Richard on 06-12-2025 Neutrophils/100 WBC (Bld) 61.2 % 47-70 [facility] No Panel InformationOrdered By: Ashu Richard on 06-12-2025 Addendum Document Comment . [facility] Comment on above: The SPE pattern appe ars unremarkable. Evidence ofmonoclonal protein is not apparent.Performed at: [address] [id number] Director: Rosas Molina PhD, Phone: [phone] ANNALISA 8 Profile Comment . [facility] Comment on above: Autoantibody Disease Association Condition Frequency Antinuclear Antibody, SLE, mixed connectiveDirect (ANNALISA-D) tissue diseases dsDNA SLE 40 - 60% Chromatin Drug induced SLE 90% SLE 48 - 97% SSA (Ro) SLE 25 - 35% Sjogren's Syndrome 40 - 70% Lupus 100% SSB (La) SLE 10% Sjogren's Syndrome 30% Sm (anti-Richard) SLE 15 - 30% RNP Mixed Connective Tissue Disease 95%(U1 nRNP, SLE 30 - 50%anti-ribonucleoprotein) Polymyositis and/or Dermatomyositis 20% Scl-70 (antiDNA Scleroderma (diffuse) 20 - 35%topoisomerase) Crest 13% Jo-1 Polymyositis and/or Dermatomyositis 20 - 40% Centromere B Scleroderma - Crest variant 80% Ribosomal P SLE 10 - 20% Nucleated red blood cell per centageOrdered By: Ashu Richard on 06-12-2025 Nucleated RBC/100 WBC (Bld) [Ratio] 0 % 0-5 [facility] Platelet countOrdered By: David Richard on 06-12-2025 Platelets (Bld) [#/Vol] 267 10*3/uL 150-450 [facility] Protein Fractions Elph [Inte rp]Ordered By: Ashu Richard on 06-12-2025 Protein Fractions [Interp] Comment . [facility] Comment on above: Protein electrophore sis scan will follow via computer,mail, or neurosurgeon delivery. RBC Auto (Bld) [#/Vol]Ordere d By: Ashu Richard on 06-12-2025 RBC (Bld) [#/Vol] 4.32 10*6/uL 4.2-5.4 [facility] Rheumatoid Factoron 06-12-20 25 RHEUMATOID FAC < 10.0 Normal <15 [facility] Comment on above: Performed By: #### L 3100.3450, L3100.7950, L101.9900, L3100.5475, L3100.5430, L501.9520, L505.7010, L100.0100, L3410.9992 #### [facility] [address] [place], [address] Serum DNA double strand anti body assay (units/volume)Ordered By: Ashu Richard on 06-12-2025 DNA double strand Ab Qn (S) [IU]/mL 0-9 [facility] Comment on above: Negative <5 Equivoca l 5 - 9 Positive >9 Serum Scl-70 antibody assay (units/volume)Ordered By: Ashu Richard on 06-12-2025 SCL-70 extractable nuclear Ab Qn (S) <0.2 AI 0.0-0.9 [facility] Comment on above: Previous reported re sult: TNP AIEdited by: JOEL on 06/15/25:1408 AMENDED REPORT 06/15/25 1408 ANTISCLER previously reported as: Test not performed Serum albumin to globulin ra nishi by protein electrophoresisOrdered By: Ashu Richard on 06-12-2025 Albumin/Globulin Elph [Mass ratio] 1.5 0.7-1.7 [facility] Serum globulin measurement ( mass/volume)Ordered By: Ashu Richard on 06-12-2025 Globulin (S) [Mass/Vol] 2.8 g/dL 2.2-3.9 [facility] Serum or plasma beta globuli n measurement by electrophoresis (mass/volume)Ordered By: Ashu Richard on 06-12-2025 Beta globulin Elph [Mass/Vol] 0.9 g/dL 0.7-1.3 [facility] Serum or plasma protein sami urement (mass/volume)Ordered By: Ashu Richard on 06-12-2025 Protein [Mass/Vol] 7.1 g/dL 6.0-8.5 [facility] Serum or plasma protein mono clonal measurement by electrophoresis (mass/volume)Ordered By: Ashu Richard on 06-12-2025 Protein.monoclonal Elph [Mass/Vol] Not Observed g/dL Not Observed [facility] Serum rheumatoid factor dete ctionOrdered By: Ashu Richard on 06-12-2025 Rheumatoid factor Ql (S) < 10.0 IU/mL <15 [facility] TSH DL <= 0.005 mIU/L QnOrde red By: Ashu Richard on 06-12-2025 TSH Qn 1.320 uIU/mL 0.300-4.200 [facility] Thyroid Stim Hormone (TSH)on 06-12-2025 TSH 1.320 uIU/mL Normal 0.300-4.200 [facility] Comment on above: Performed By: #### L 3100.3450, L3100.7950, L101.9900, L3100.5475, L3100.5430, L501.9520, L505.7010, L100.0100, L3410.9992 #### [facility] [address] [place], [place], [id number] White blood cell (WBC) count Ordered By: Ashu Richard on 06-12-2025 WBC (Bld) [#/Vol] 7.3 10*3/uL 4.4-11.0 [facility] Lyme Screen W/Reflex WBon LYME SCREEN Ab Negative Normal Negative [facility] Comment on above: Order Comment: Order Date: 05/17/25Order Info: 9586-9 - LYMS Result Comment: Lyme antibodies not detected. Reflex testing is not indicated. No laboratory evidence of infection with B. burgdorferi (Lyme disease). Negative results may occur in patients recently infected (less than or equal to 14 days) with B. burgdorferi. If recent infection is suspected, repeat testing on a new sample collected in 7 to 14 days is recommended. Performed at: [address] [id number] [employer] Teacher: Rosas Molina PhD, Phone: [phone] Performed By: #### L 3100.3450, L3100.7950, L101.9900, L3100.5475, L3100.5430, L501.9520, L505.7010, L100.0100, L3410.9992 #### [facility] [address] [place], [place], [id number] Absolute lymphocyte countOrd ered By: Ashu Richard on 05-17-2025 Lymphocytes Auto (Unsp spec) [#/Vol] 1.36 10*3/uL 0.83-4.51 [facility] Absolute neutrophil countOrd ered By: Ashu Richard on 05-17-2025 Neutrophils (Bld) [#/Vol] 4.7 10*3/uL 2.0-7.7 [facility] Automated lymphocyte count a s percentage of total leukocytesOrdered By: Ashu Richard on 05-17-2025 Lymphocytes/100 WBC Auto (Unsp spec) 19.3 % 19-41 [facility] Basophil percentageOrdered B y: Ashu Richard on 05-17-2025 Basophils/100 WBC (Bld) 0.4 % 0-1 [facility] CBC W/Diff, Automatedon 04-19 Absolute Lymph 1.36 X10 3/uL Normal 0.83-4.51 [facility] Comment on above: Order Comment: Order Date: 05/17/25Order Info: 0184- - CBCD Performed By: #### L 3100.3450, L3100.7950, L101.9900, L3100.5475, L3100.5430, L501.9520, L505.7010, L100.0100, L3410.9992 #### [facility] [address] [place], [address] Absolute Neut 4.7 X10 3/uL Normal 2.0-7.7 [facility] Comment on above: Order Comment: Order Date: 05/17/25Order Info: 0184- - CBCD Performed By: #### L 3100.3450, L3100.7950, L101.9900, L3100.5475, L3100.5430, L501.9520, L505.7010, L100.0100, L3410.9992 #### [facility] [address] [place], [address] Basophils/100 WBC (Bld) 0.4 % Normal 0-1 [facility] Comment on above: Order Comment: Order Date: 05/17/25Order Info: 0184- - CBCD Performed By: #### L 3100.3450, L3100.7950, L101.9900, L3100.5475, L3100.5430, L501.9520, L505.7010, L100.0100, L3410.9992 #### [facility] [address] [place], [place], [id number] (370) Eosinophils/100 WBC (Bld) 2.0 % Normal 0-5 [facility] Comment on above: Order Comment: Order Date: 05/17/25Order Info: 0184-1 - CBCD Performed By: #### L 3100.3450, L3100.7950, L101.9900, L3100.5475, L3100.5430, L501.9520, L505.7010, L100.0100, L3410.9992 #### [facility] [address] [place], [address] (699) Erythrocyte distribution width (RBC) [Ratio] 12.5 % Normal 11.6-14.6 [facility] Comment on above: Order Comment: Order Date: 05/17/25Order Info: 0184-1 - CBCD Performed By: #### L 3100.3450, L3100.7950, L101.9900, L3100.5475, L3100.5430, L501.9520, L505.7010, L100.0100, L3410.9992 #### [facility] [address] [place], [address] Hematocrit (Bld) [Volume fraction] 39.2 % Normal 37-47 [facility] Comment on above: Order Comment: Order Date: 05/17/25Order Info: 0184-1 - CBCD Performed By: #### L 3100.3450, L3100.7950, L101.9900, L3100.5475, L3100.5430, L501.9520, L505.7010, L100.0100, L3410.9992 #### [facility] [address] [place], [address] Hemoglobin (Bld) [Mass/Vol] 12.9 g/dL Normal 12.0-15.0 [facility] Comment on above: Order Comment: Order Date: 05/17/25Order Info: 0184-1 - CBCD Performed By: #### L 3100.3450, L3100.7950, L101.9900, L3100.5475, L3100.5430, L501.9520, L505.7010, L100.0100, L3410.9992 #### [facility] [address] [place], [address] IG% 0.400 Normal 0.0-0.9 [facility] Comment on above: Order Comment: Order Date: 05/17/25Order Info: 018- - CBCD Result Comment: IG% - Immature Granulocytes (promyelocytes, myelocytes and metamyelocytes) > 1% indicates that a LEFT SHIFT is Present. Performed By: #### L 3100.3450, L3100.7950, L101.9900, L3100.5475, L3100.5430, L501.9520, L505.7010, L100.0100, L3410.9992 #### [facility] [address] [place], [address] Lymphocytes/100 WBC (Bld) 19.3 % Normal 19-41 [facility] Comment on above: Order Comment: Order Date: 05/17/25Order Info: 0184- - CBCD Performed By: #### L 3100.3450, L3100.7950, L101.9900, L3100.5475, L3100.5430, L501.9520, L505.7010, L100.0100, L3410.9992 #### [facility] [address] [place], [address] MCH (RBC) [Entitic mass] 30.9 pg Normal 27.0-32.0 [facility] Comment on above: Order Comment: Order Date: 05/17/25Order Info: 0184- - CBCD Performed By: #### L 3100.3450, L3100.7950, L101.9900, L3100.5475, L3100.5430, L501.9520, L505.7010, L100.0100, L3410.9992 #### [facility] [address] [place], [address] MCHC (RBC) [Mass/Vol] 32.9 g/dL Normal 32-36 [facility] Comment on above: Order Comment: Order Date: 05/17/25Order Info: 0184-1 - CBCD Performed By: #### L 3100.3450, L3100.7950, L101.9900, L3100.5475, L3100.5430, L501.9520, L505.7010, L100.0100, L3410.9992 #### [facility] [address] [place], [address] MCV (RBC) [Entitic vol] 94.0 fL Normal 81-99 [facility] Comment on above: Order Comment: Order Date: 05/17/25Order Info: 0184-1 - CBCD Performed By: #### L 3100.3450, L3100.7950, L101.9900, L3100.5475, L3100.5430, L501.9520, L505.7010, L100.0100, L3410.9992 #### [facility] [address] [place], [address] Monocytes/100 WBC (Bld) 11.5 % High 0-10 [facility] Comment on above: Order Comment: Order Date: 05/17/25Order Info: 0184-1 - CBCD Performed By: #### L 3100.3450, L3100.7950, L101.9900, L3100.5475, L3100.5430, L501.9520, L505.7010, L100.0100, L3410.9992 #### [facility] [address] [place], [address] Neutrophils/100 WBC (Bld) 66.4 % Normal 47-70 [facility] Comment on above: Order Comment: Order Date: 05/17/25Order Info: 0184-1 - CBCD Performed By: #### L 3100.3450, L3100.7950, L101.9900, L3100.5475, L3100.5430, L501.9520, L505.7010, L100.0100, L3410.9992 #### [facility] [address] [place], [address] Nucleated RBC (Bld) [#/Vol] 0 10*3/uL Normal 0-5 [facility] Comment on above: Order Comment: Order Date: 05/17/25Order Info: 018- - CBCD Performed By: #### L 3100.3450, L3100.7950, L101.9900, L3100.5475, L3100.5430, L501.9520, L505.7010, L100.0100, L3410.9992 #### [facility] [address] [place], [address] Platelet mean volume (Bld) [Entitic vol] 10.4 fL Normal 6.2-12.0 [facility] Comment on above: Order Comment: Order Date: 05/17/25Order Info: 018- - CBCD Performed By: #### L 3100.3450, L3100.7950, L101.9900, L3100.5475, L3100.5430, L501.9520, L505.7010, L100.0100, L3410.9992 #### [facility] [address] [place], [address] Platelets (Bld) [#/Vol] 262 10*3/uL Normal 150-450 [facility] Comment on above: Order Comment: Order Date: 05/17/25Order Info: 018-1 - CBCD Performed By: #### L 3100.3450, L3100.7950, L101.9900, L3100.5475, L3100.5430, L501.9520, L505.7010, L100.0100, L3410.9992 #### [facility] [address] [place], [address] RBC (Bld) [#/Vol] 4.17 10*6/uL Low 4.2-5.4 [facility] Comment on above: Order Comment: Order Date: 05/17/25Order Info: 0184- - CBCD Performed By: #### L 3100.3450, L3100.7950, L101.9900, L3100.5475, L3100.5430, L501.9520, L505.7010, L100.0100, L3410.9992 #### [facility] [address] [place], [address] RDW SD 43.5 fl Normal 35.1-43.9 [facility] Comment on above: Order Comment: Order Date: 05/17/25Order Info: 018- - CBCD Performed By: #### L 3100.3450, L3100.7950, L101.9900, L3100.5475, L3100.5430, L501.9520, L505.7010, L100.0100, L3410.9992 #### [facility] [address] [place], [address] WBC (Bld) [#/Vol] 7.0 10*3/uL Normal 4.4-11.0 [facility] Comment on above: Order Comment: Order Date: 05/17/25Order Info: 0184- - CBCD Performed By: #### L 3100.3450, L3100.7950, L101.9900, L3100.5475, L3100.5430, L501.9520, L505.7010, L100.0100, L3410.9992 #### [facility] [address] [place], [address] CRPon 05-17-2025 C-REACTIVE PROT 67.10 mg/L High 0.0-3.0 [facility] Comment on above: Order Comment: Order Date: 05/17/25Order Info: 33870-1 - CRP Performed By: #### L 3100.3450, L3100.7950, L101.9900, L3100.5475, L3100.5430, L501.9520, L505.7010, L100.0100, L3410.9992 #### [facility] [place], [address] Eosinophil percentageOrdered By: Ashu Richard on 05-17-2025 Eosinophils/100 WBC (Bld) 2.0 % 0-5 [facility] Erythrocyte distribution wid th ratioOrdered By: Ashu Richard on 05-17-2025 Erythrocyte distribution width (RBC) [Ratio] 12.5 % 11.6-14.6 [facility] Erythrocyte distribution wid th standard deviationOrdered By: Ashu Richard on 05-17-2025 Erythrocyte distribution width (RBC) [Ratio] 43.5 fl 35.1-43.9 [facility] Hematocrit Auto (Bld) [Volum e fraction]Ordered By: Ashu Richard on 05-17-2025 Hematocrit (Bld) [Volume fraction] 39.2 % 37-47 [facility] Hemoglobin measurementOrdere d By: Ashu Richard on 05-17-2025 Hemoglobin (Bld) [Mass/Vol] 12.9 g/dL 12.0-15.0 [facility] Immature granulocytes/100 WB C Auto (Bld)Ordered By: Ashu Richard on 05-17-2025 Immature granulocytes/100 WBC (Bld) 0.400 % 0.0-0.9 [facility] Comment on above: IG% - Immature Granu locytes (promyelocytes, myelocytes and metamyelocytes) > 1% indicates that a LEFT SHIFT is Present. MCV (mean corpuscular volume ) determinationOrdered By: Ashu Richard on 05-17-2025 MCV (RBC) [Entitic vol] 94.0 fL 81-99 [facility] Mean corpuscular hemoglobin (MCH) determinationOrdered By: Ashu Richard on 05-17-2025 MCH (RBC) [Entitic mass] 30.9 pg 27.0-32.0 [facility] Mean corpuscular hemoglobin concentration (MCHC) determinationOrdered By: Ashu Richard on 05-17-2025 MCHC (RBC) [Mass/Vol] 32.9 g/dL 32-36 [facility] Mean platelet volume determi nationOrdered By: Ashu Richard on 05-17-2025 Platelet mean volume (Bld) [Entitic vol] 10.4 fL 6.2-12.0 [facility] Monocyte percentageOrdered B y: Ashu Richard on 05-17-2025 Monocytes/100 WBC (Bld) 11.5 % High 0-10 [facility] Neutrophil percentageOrdered By: Ashu Richard on 05-17-2025 Neutrophils/100 WBC (Bld) 66.4 % 47-70 [facility] Nucleated red blood cell per centageOrdered By: Ashu Richard on 05-17-2025 Nucleated RBC/100 WBC (Bld) [Ratio] 0 % 0-5 [facility] Platelet countOrdered By: David Richard on 05-17-2025 Platelets (Bld) [#/Vol] 262 10*3/uL 150-450 [facility] RBC Auto (Bld) [#/Vol]Ordere d By: Ashu Richard on 05-17-2025 RBC (Bld) [#/Vol] 4.17 10*6/uL Low 4.2-5.4 [facility] Serum or plasma C reactive p rotein measurement (mass/volume)Ordered By: Ashu Richard on 05-17-2025 CRP [Mass/Vol] 67.10 mg/L High 0.0-3.0 [facility] White blood cell (WBC) count Ordered By: Ashu Richard on 05-17-2025 WBC (Bld) [#/Vol] 7.0 10*3/uL 4.4-11.0 [facility] Absolute lymphocyte countOrd ered By: Hamlet Reyes on 05-16-2025 Lymphocytes Auto (Unsp spec) [#/Vol] 0.85 10*3/uL 0.83-4.51 [facility] Absolute neutrophil countOrd ered By: Hamlet Reyes on 05-16-2025 Neutrophils (Bld) [#/Vol] 6.2 10*3/uL 2.0-7.7 [facility] Anion gap in Serum or Plasma Ordered By: [facility] 05-16-2025 Anion gap [Moles/Vol] 12 mmol/L 5-15 [facility] Automated lymphocyte count a s percentage of total leukocytesOrdered By: [facility]let [facility] 05-[facility]-2025 Lymphocytes/100 WBC Auto (Unsp spec) 10.8 % Low 19-41 [facility] BUN/creatinine ratioOrdered By: [facility] on 05-16-2025 Urea nitrogen/Creatinine [Mass ratio] 9.1 mg/mg Low 10-20 [facility] Basophil percentageOrdered B y: [facility] on 05-16-2025 Basophils/100 WBC (Bld) 0.4 % 0-1 [facility] Bilirubin, totalOrdered By: [facility] on 05-16-2025 Bilirubin [Mass/Vol] 0.50 mg/dL 0.00-1.30 [facility] CBC W/Diff, Automatedon 04-19 Absolute Lymph 0.85 X10 3/uL Normal 0.83-4.51 [facility] Comment on above: Order Comment: Order Date: 05/16/25Order Info: 0184-1 - CBCD Performed By: #### L 3100.3450, L3100.7950, L101.9900, L3100.5475, L3100.5430, L501.9520, L505.7010, L100.0100, L3410.9992 #### [facility] [address] [facility] [place], [place], [id number] Absolute Neut 6.2 X10 3/uL Normal 2.0-7.7 [facility] Comment on above: Order Comment: Order Date: 05/16/25Order Info: 0184-1 - CBCD Performed By: #### L 3100.3450, L3100.7950, L101.9900, L3100.5475, L3100.5430, L501.9520, L505.7010, L100.0100, L3410.9992 #### [facility] [address] [facility] [place], [address] Basophils/100 WBC (Bld) 0.4 % Normal 0-1 [facility] Comment on above: Order Comment: Order Date: 05/16/25Order Info: 0184-1 - CBCD Performed By: #### L 3100.3450, L3100.7950, L101.9900, L3100.5475, L3100.5430, L501.9520, L505.7010, L100.0100, L3410.9992 #### [facility] [address] [place], [address] Eosinophils/100 WBC (Bld) 1.4 % Normal 0-5 [facility] Comment on above: Order Comment: Order Date: 05/16/25Order Info: 0184-1 - CBCD Performed By: #### L 3100.3450, L3100.7950, L101.9900, L3100.5475, L3100.5430, L501.9520, L505.7010, L100.0100, L3410.9992 #### [facility] [address] [place], [place], [phone] Erythrocyte distribution width (RBC) [Ratio] 12.6 % Normal 11.6-14.6 [facility] Comment on above: Order Comment: Order Date: 05/16/25Order Info: 0184-1 - CBCD Performed By: #### L 3100.3450, L3100.7950, L101.9900, L3100.5475, L3100.5430, L501.9520, L505.7010, L100.0100, L3410.9992 #### [facility] [address] [place], [address] Hematocrit (Bld) [Volume fraction] 40.7 % Normal 37-47 [facility] Comment on above: Order Comment: Order Date: 05/16/25Order Info: 0184-1 - CBCD Performed By: #### L 3100.3450, L3100.7950, L101.9900, L3100.5475, L3100.5430, L501.9520, L505.7010, L100.0100, L3410.9992 #### [facility] [address] [place], [address] Hemoglobin (Bld) [Mass/Vol] 12.9 g/dL Normal 12.0-15.0 [facility] Comment on above: Order Comment: Order Date: 05/16/25Order Info: 0184-1 - CBCD Performed By: #### L 3100.3450, L3100.7950, L101.9900, L3100.5475, L3100.5430, L501.9520, L505.7010, L100.0100, L3410.9992 #### [facility] [address] [place], [place], [phone] ([phone] IG% 0.300 Normal 0.0-0.9 [facility] Comment on above: Order Comment: Order Date: 05/16/25Order Info: 0184- - CBCD Result Comment: IG% - Immature Granulocytes (promyelocytes, myelocytes and metamyelocytes) > 1% indicates that a LEFT SHIFT is Present. Performed By: #### L 3100.3450, L3100.7950, L101.9900, L3100.5475, L3100.5430, L501.9520, L505.7010, L100.0100, L3410.9992 #### [facility] [address] [place], [place], [phone] ([phone]) Lymphocytes/100 WBC (Bld) 10.8 % Low 19-41 [facility] Comment on above: Order Comment: Order Date: 05/16/25Order Info: 0184-1 - CBCD Performed By: #### L 3100.3450, L3100.7950, L101.9900, L3100.5475, L3100.5430, L501.9520, L505.7010, L100.0100, L3410.9992 #### [facility] [address] [place], [address] MCH (RBC) [Entitic mass] 30.7 pg Normal 27.0-32.0 [facility] Comment on above: Order Comment: Order Date: 05/16/25Order Info: 0184-1 - CBCD Performed By: #### L 3100.3450, L3100.7950, L101.9900, L3100.5475, L3100.5430, L501.9520, L505.7010, L100.0100, L3410.9992 #### [facility] [address] [place], [address] MCHC (RBC) [Mass/Vol] 31.7 g/dL Low 32-36 [facility] Comment on above: Order Comment: Order Date: 05/16/25Order Info: 0184- - CBCD Performed By: #### L 3100.3450, L3100.7950, L101.9900, L3100.5475, L3100.5430, L501.9520, L505.7010, L100.0100, L3410.9992 #### [facility] [address] [place], [address] MCV (RBC) [Entitic vol] 96.9 fL Normal 81-99 [facility] Comment on above: Order Comment: Order Date: 05/16/25Order Info: 0184-1 - CBCD Performed By: #### L 3100.3450, L3100.7950, L101.9900, L3100.5475, L3100.5430, L501.9520, L505.7010, L100.0100, L3410.9992 #### [facility] [address] [place], [address] Monocytes/100 WBC (Bld) 8.4 % Normal 0-10 [facility] Comment on above: Order Comment: Order Date: 05/16/25Order Info: 0184-1 - CBCD Performed By: #### L 3100.3450, L3100.7950, L101.9900, L3100.5475, L3100.5430, L501.9520, L505.7010, L100.0100, L3410.9992 #### [facility] [address] [place], [address] Neutrophils/100 WBC (Bld) 78.7 % High 47-70 [facility] Comment on above: Order Comment: Order Date: 05/16/25Order Info: 0184-1 - CBCD Performed By: #### L 3100.3450, L3100.7950, L101.9900, L3100.5475, L3100.5430, L501.9520, L505.7010, L100.0100, L3410.9992 #### [facility] [address] [place], [address] Nucleated RBC (Bld) [#/Vol] 0 10*3/uL Normal 0-5 [facility] Comment on above: Order Comment: Order Date: 05/16/25Order Info: 0184-1 - [facility] Performed By: #### L 3100.3450, L3100.7950, L101.9900, L3100.5475, L3100.5430, L501.9520, L505.7010, L100.0100, L3410.9992 #### [facility] [address] [place], [address] Platelet mean volume (Bld) [Entitic vol] 10.4 fL Normal 6.2-12.0 [facility] Comment on above: Order Comment: Order Date: 05/16/25Order Info: 0184-1 - [facility] Performed By: #### L 3100.3450, L3100.7950, L101.9900, L3100.5475, L3100.5430, L501.9520, L505.7010, L100.0100, L3410.9992 #### [facility] [address] [place], [address] Platelets (Bld) [#/Vol] 268 10*3/uL Normal 150-450 [facility] Comment on above: Order Comment: Order Date: 05/16/25Order Info: 0184-1 - [facility] Performed By: #### L 3100.3450, L3100.7950, L101.9900, L3100.5475, L3100.5430, L501.9520, L505.7010, L100.0100, L3410.9992 #### [facility] [address] [place], [address] RBC (Bld) [#/Vol] 4.20 10*6/uL Normal 4.2-5.4 [facility] Comment on above: Order Comment: Order Date: 05/16/25Order Info: 018-1 - [facility] Performed By: #### L 3100.3450, L3100.7950, L101.9900, L3100.5475, L3100.5430, L501.9520, L505.7010, L100.0100, L3410.9992 #### [facility] [address] [place], [address] RDW SD 45.0 fl High 35.1-43.9 [facility] Comment on above: Order Comment: Order Date: 05/16/25Order Info: 0184-1 - CBCD Performed By: #### L 3100.3450, L3100.7950, L101.9900, L3100.5475, L3100.5430, L501.9520, L505.7010, L100.0100, L3410.9992 #### [facility] [address] [place], [address] WBC (Bld) [#/Vol] 7.9 10*3/uL Normal 4.4-11.0 [facility] Comment on above: Order Comment: Order Date: 05/16/25Order Info: 0184-1 - CBCD Performed By: #### L 3100.3450, L3100.7950, L101.9900, L3100.5475, L3100.5430, L501.9520, L505.7010, L100.0100, L3410.9992 #### [facility] [address] [place], [address] Carbon dioxide, total [Moles /volume] in Central venous bloodOrdered By: Hamlet McMorrow on 05-16-2025 CO2 [Moles/Vol] 24.0 mmol/L 21.0-32.0 [facility] Chloride assayOrdered By: An gel McMorrow on 05-16-2025 Chloride [Moles/Vol] 101 mmol/L 98-108 [facility] Comprehensive Metabolic Prof ilon 05-16-2025 Albumin [Mass/Vol] 4.1 g/dL Normal 3.5-5.0 [facility] Comment on above: Order Comment: Order Date: 05/16/25 Order Info: 0786-1 - CMP Order Info: 3016-3 - TSH Performed By: #### L 500.4050 #### [facility] [address] [place], [address] Albumin/Globulin [Mass ratio] 1.4 {ratio} Normal 0.9-2.4 [facility] Comment on above: Order Comment: Order Date: 05/16/25 Order Info: 0786-1 - CMP Order Info: 3016-3 - TSH Performed By: #### L 500.4050 #### [facility] [address] [place], [address] ALK PHOS 49 U/L Normal 35-104 [facility] Comment on above: Order Comment: Order Date: 05/16/25 Order Info: 0786-1 - CMP Order Info: 3016-3 - TSH Performed By: #### L 500.4050 #### [facility] [address] [place], [address] ALT [Catalytic activity/Vol] 11 U/L Normal <=34 [facility] Comment on above: Order Comment: Order Date: 05/16/25 Order Info: 0786-1 - CMP Order Info: 3016-3 - TSH Performed By: #### L 500.4050 #### [facility] [address] [place], [address] AST [Catalytic activity/Vol] 15 U/L Normal <=31 [facility] Comment on above: Order Comment: Order Date: 05/16/25 Order Info: 0786-1 - CMP Order Info: 301-3 - TSH Performed By: #### L 500.4050 #### [facility] [address] [place], [address] Bilirubin [Mass/Vol] 0.50 mg/dL Normal 0.00-1.30 [facility] Comment on above: Order Comment: Order Date: 05/16/25 Order Info: 0786-1 - CMP Order Info: 301-3 - TSH Performed By: #### L 500.4050 #### [facility] [address] [place], [address] BUN/CRE 9.1 RATIO Low 10-20 [facility] Comment on above: Order Comment: Order Date: 05/16/25 Order Info: 0786-1 - CMP Order Info: 3016-3 - TSH Performed By: #### L 500.4050 #### [facility] [address] [place], [address] Calcium [Mass/Vol] 9.1 mg/dL Normal 7.6-11.0 [facility] Comment on above: Order Comment: Order Date: 05/16/25 Order Info: 0786-1 - CMP Order Info: 3016-3 - TSH Performed By: #### L 500.4050 #### [facility] [address] [place], [address] Chloride [Moles/Vol] 101 mmol/L Normal 98-108 [facility] Comment on above: Order Comment: Order Date: 05/16/25 Order Info: 0786-1 - CMP Order Info: 3015-12 - TSH Performed By: #### L 500.4050 #### [facility] [address] [place], [place], [address] CO2 [Moles/Vol] 24.0 mmol/L Normal 21.0-32.0 [facility] Comment on above: Order Comment: Order Date: 05/16/25 Order Info: 07 - CMP Order Info: 3015-12 - TSH Performed By: #### L 500.4050 #### [facility] [address] [place], [place], [address] Creatinine [Mass/Vol] 0.82 mg/dL Normal 0.70-1.20 [facility] Comment on above: Order Comment: Order Date: 05/16/25 Order Info: 07 - [facility] Order Info: 3015-12 - TSH Performed By: #### L 500.4050 #### [facility] [address] [place], [address] GAP 12 Normal 5-15 [facility] Comment on above: Order Comment: Order Date: 05/16/25 Order Info: 07 - [facility] Order Info: 3015-12 - TSH Performed By: #### L 500.4050 #### [facility] [address] [place], [place], [address] GFR/1.73 sq M.predicted among non-blacks MDRD (S/P/Bld) [Vol rate/Area] 91 mL/min/{1.73_m2} Normal >60 [facility] Comment on above: Order Comment: Order Date: 05/16/25 Order Info: 0786-1 - CMP Order Info: 3013 - TSH Result Comment: mL/m in/1.73m2 CKD-EPI Creatinine Equation (2020) Performed By: #### L 500.4050 #### [facility] [address] [place], [address] Globulin (S) [Mass/Vol] 2.9 g/dL Normal 2.2-4.2 [facility] Comment on above: Order Comment: Order Date: 05/16/25 Order Info: 0786- - CMP Order Info: 3 - TSH Performed By: #### L 500.4050 #### [facility] [address] [place], [address] Glucose [Mass/Vol] 115 mg/dL High 70-99 [facility] Comment on above: Order Comment: Order Date: 05/16/25 Order Info: 785-10 - [facility] Order Info: 3 - TSH Performed By: #### L 500.4050 #### [facility] [address] [place], [address] Potassium [Moles/Vol] 3.4 mmol/L Normal 3.3-5.1 [facility] Comment on above: Order Comment: Order Date: 05/16/25 Order Info: 07 - [facility] Order Info: 3 - TSH Performed By: #### L 500.4050 #### [facility] [address] [place], [address] Sodium [Moles/Vol] 137 mmol/L Normal 133-145 [facility] Comment on above: Order Comment: Order Date: 05/16/25 Order Info: 0786 - [facility] Order Info: 3 - TSH Performed By: #### L 500.4050 #### [facility] [address] [place], [address] T PROT 7.0 g/dL Normal 5.9-8.4 [facility] Comment on above: Order Comment: Order Date: 05/16/25 Order Info: 0786- - CMP Order Info: 301-3 - TSH Performed By: #### L 500.4050 #### [facility] [address] [place], [address] Urea nitrogen [Mass/Vol] 7 mg/dL Normal 4-19 [facility] Comment on above: Order Comment: Order Date: 05/16/25 Order Info: 0786-1 - CMP Order Info: 3016-3 - TSH Performed By: #### L 500.4050 #### [facility] [address] [place], [address] Eosinophil percentageOrdered By: [facility]let [facility] Eosinophils/100 WBC (Bld) 1.4 % 0-5 [facility] Erythrocyte distribution wid th ratioOrdered By: [facility] on 05-16-2025 Erythrocyte distribution width (RBC) [Ratio] 12.6 % 11.6-14.6 [facility] Erythrocyte distribution wid th standard deviationOrdered By: [facility] 05-16-2025 Erythrocyte distribution width (RBC) [Ratio] 45.0 fl High 35.1-43.9 [facility] Glomerular filtration rate ( GFR) estimation/1.73 sq m using serum, plasma, or whole bOrdered By: Hamlet [facility] on 05-16-2025 GFR/1.73 sq M.predicted among non-blacks MDRD (S/P/Bld) [Vol rate/Area] 91 mL/min/{1.73_m2} >60 [facility] Comment on above: mL/min/1.73m2 CKD-EP I Creatinine Equation (2020) Hematocrit Auto (Bld) [Volum e fraction]Ordered By: [facility] 05-16-2025 Hematocrit (Bld) [Volume fraction] 40.7 % 37-47 [facility] Hemoglobin measurementOrdere d By: Hamlet Reyes 05-16-2025 Hemoglobin (Bld) [Mass/Vol] 12.9 g/dL 12.0-15.0 [facility] Immature granulocytes/100 WB C Auto (Bld)Ordered By: Hamlet [facility] 05-16-2025 Immature granulocytes/100 WBC (Bld) 0.300 % 0.0-0.9 [facility] Comment on above: IG% - Immature Granu locytes (promyelocytes, myelocytes and metamyelocytes) > 1% indicates that a LEFT SHIFT is Present. Laboratory - Chemistry and C hemistry - challengeOrdered By: Hamlet Reyes on 05-16-2025 AST [Catalytic activity/Vol] 15 U/L <32 [facility] MCV (mean corpuscular volume ) determinationOrdered By: Hamlet on 05-16-2025 MCV (RBC) [Entitic vol] 96.9 fL 81-99 [facility] Mean corpuscular hemoglobin (MCH) determinationOrdered By: Hamlet 05-16-2025 MCH (RBC) [Entitic mass] 30.7 pg 27.0-32.0 [facility] Mean corpuscular hemoglobin concentration (MCHC) determinationOrdered By: Hamlet on 05-16-2025 MCHC (RBC) [Mass/Vol] 31.7 g/dL Low 32-36 [facility] Mean platelet volume determi nationOrdered By: Hamlet on 05-16-2025 Platelet mean volume (Bld) [Entitic vol] 10.4 fL 6.2-12.0 [facility] Monocyte percentageOrdered B y: on 05-16-2025 Monocytes/100 WBC (Bld) 8.4 % 0-10 [facility] Neutrophil percentageOrdered By: Hamlet on 05-16-2025 Neutrophils/100 WBC (Bld) 78.7 % High 47-70 [facility] Nucleated red blood cell per centageOrdered By: Hamlet on 05-16-2025 Nucleated RBC/100 WBC (Bld) [Ratio] 0 % 0-5 [facility] Platelet countOrdered By: An gel orr on 05-16-2025 Platelets (Bld) [#/Vol] 268 10*3/uL 150-450 [facility] Potassium measurement (mass/ volume)Ordered By: Hamlet Gabriel on 05-16-2025 Potassium (Unsp spec) [Mass/Vol] 3.4 mmol/L 3.3-5.1 [facility] RBC Auto (Bld) [#/Vol]Ordere d By: Hamlet Gabriel on 05-16-2025 RBC (Bld) [#/Vol] 4.20 10*6/uL 4.2-5.4 [facility] Serum creatinine measurement (mass/volume)Ordered By: Hamlet Reyes on 05-16-2025 Creatinine [Mass/Vol] 0.82 mg/dL 0.70-1.20 [facility] Serum globulin measurementOr dered By: Hamlet Reyes 05-16-2025 Globulin (S) [Mass/Vol] 2.9 g/dL 2.2-4.2 [facility] Serum glucose measurement (m ass/volume)Ordered By: Hamlet Reyes 05-16-2025 Glucose [Mass/Vol] 115 mg/dL High 70-99 [facility] Serum or plasma alanine miranda otransferase (ALT) measurementOrdered By: Hamlet [facility] 05-16-2025 ALT [Catalytic activity/Vol] 11 U/L <35 [facility] Serum or plasma albumin sami urement (mass/volume)Ordered By: Hamlet Reyes 05-16-2025 Albumin [Mass/Vol] 4.1 g/dL 3.5-5.0 [facility] Serum or plasma albumin/glob ulin mass ratioOrdered By: Hamlet Reyes 05-16-2025 Albumin/Globulin [Mass ratio] 1.4 {ratio} 0.9-2.4 [facility] Serum or plasma alkaline sky sphatase measurementOrdered By: Hamlet Reyes 05-16-2025 ALP [Catalytic activity/Vol] 49 U/L 35-104 [facility] Serum or plasma calcium sami urement (mass/volume)Ordered By: Hamlet Reyes 05-16-2025 Calcium [Mass/Vol] 9.1 mg/dL 7.6-11.0 [facility] Serum or plasma urea nitroge n measurement (mass/volume)Ordered By: Hamlet Reyes 05-16-2025 Urea nitrogen [Mass/Vol] 7 mg/dL 4-19 [facility] Sodium levelOrdered By: Madonna Reyes on 05-16-2025 Sodium [Moles/Vol] 137 mmol/L 133-145 [facility] TSH DL <= 0.005 mIU/L QnOrde red By: Hamlet Reyes on 05-16-2025 TSH Qn 1.210 uIU/mL 0.300-4.200 [facility] Thyroid Stim Hormone (TSH)on 05-16-2025 TSH 1.210 uIU/mL Normal 0.300-4.200 [facility] Comment on above: Order Comment: Order Date: 05/16/25Order Info: 0786-1 - CMPOrder Info: 3016-3 - TSH Performed By: #### L 3100.3450, L3100.7950, L101.9900, L3100.5475, L3100.5430, L501.9520, L505.7010, L100.0100, L3410.9992 #### [facility] [address] [place], [address] Total proteinOrdered By: Garrett Reyes on 05-16-2025 Protein [Mass/Vol] 7.0 g/dL 5.9-8.4 [facility] White blood cell (WBC) count Ordered By: Hamlet Reyes on 05-16-2025 WBC (Bld) [#/Vol] 7.9 10*3/uL 4.4-11.0 [facility] DBT Breast - left diagnostic for implanton 11-13-2024 IMPRESSION: Finding 1: There is no suspicious imaging finding to correspond with the focal pain in the left breast at 2 o'clock, 7 cm from the nipple. Clinical correlation and follow-up is recommended with imaging follow-up as clinically indicated. Finding 2: The 2.2 x 1.6 x 2.1 cm simple cyst in the left breast at 2 o'clock, 5 cm from the nipple is benign. Return to annual screening mammogram is recommended. Annual mammogram will be due in 3 months. BI-RADS Category 2: Benign RISK: Based on the Tyrer-Cuzick (TC) risk assessment model, this patient has a 19.1% lifetime risk of developing breast cancer, meaning they are at average risk for developing breast cancer. However, this is only an estimate based on available history provided on the patient's questionnaire. We encourage all patients to talk with their providers about these results, further recommendations for managing breast health, and appropriate supplemental screening options if the patient has dense breast tissue. Interpreting Radiologist: Nils Zimmerman M.D. Electronically signed on: 11/13/2024 Wire Mesh Gate Assembler: [email or web address] Transcribe Date/Time: Nov 13 2024 8:39A Dictated by : NILS ZIMMERMAN MD This examination was interpreted and the report reviewed and electronically signed by: NILS ZIMMERMAN MD on Nov 13 2024 11:25AM [facility] * * *Final Report* * * DATE OF EXAM: Nov 13 2024 8:48AM LELA 0628 - [facility] JOHNG W JOSE RAFAEL LT / PROCEDURE REASON: multiple diagnoses * * * * Physician Interpretation * * * * [facility] [address] [place] [address] #[id number] - [facility] DIAG W JOSE RAFAEL LT #[id number] - [facility] US BREAST LTD LT HISTORY: Patient is 44 years old and is seen for diagnostic evaluation of focal pain the left breast. Patient states no personal history of breast cancer. Patient states no personal history of other cancers. COMPARISON STUDIES: The present examination has been compared to prior imaging studies dated 01/13/2022 (mammogram), 01/15/2023 (mammogram), 01/19/2024 (mammogram), 01/22/2024 (mammogram) and 01/22/2024 (ultrasound). MAMMOGRAM TECHNIQUE: The study was acquired using full field digital technology and interpreted from soft copy. Digital Breast Tomosynthesis (DBT) images were obtained and used to assist in the interpretation of this examination. MAMMOGRAM FINDINGS: The breast is extremely dense, which lowers the sensitivity of mammography. Finding 1: There are no suspicious mammographic findings to correspond with the focal pain in the left breast at 2 o'clock, 7 cm from the nipple. ULTRASOUND TECHNIQUE: Targeted ultrasound of the indicated area was performed. Don scale images were saved. ULTRASOUND FINDINGS: Finding 1: There are no suspicious sonographic findings to correspond with the focal pain in the left breast at 2 o'clock, 7 cm from the nipple. Finding 2: There is a simple cyst measuring 2.2 x 1.6 x 2.1 cm in the left breast at 2 o'clock, 5 cm from the nipple. Internal echotexture is anechoic. Color flow imaging demonstrates vascularity is not present. [facility] Provider, Justino Rae - 11/13/2024 * * *Final Report* * * DATE OF EXAM: Nov 13 2024 8:48AM MDW 0628 - [facility] DIAG W JOSE RAFAEL LT / PROCEDURE REASON: multiple diagnoses * * * * Physician Interpretation * * * * [place] [id number] #[id number] - [facility] JOHNG W JOSE RAFAEL LT #[id number] - [facility] US BREAST LTD LT HISTORY: Patient is 44 years old and is seen for diagnostic evaluation of focal pain the left breast. Patient states no personal history of breast cancer. Patient states no personal history of other cancers. COMPARISON STUDIES: The present examination has been compared to prior imaging studies dated 01/13/2022 (mammogram), 01/15/2023 (mammogram), 01/19/2024 (mammogram), 01/22/2024 (mammogram) and 01/22/2024 (ultrasound). MAMMOGRAM TECHNIQUE: The study was acquired using full field digital technology and interpreted from soft copy. Digital Breast Tomosynthesis (DBT) images were obtained and used to assist in the interpretation of this examination. MAMMOGRAM FINDINGS: The breast is extremely dense, which lowers the sensitivity of mammography. Finding 1: There are no suspicious mammographic findings to correspond with the focal pain in the left breast at 2 o'clock, 7 cm from the nipple. ULTRASOUND TECHNIQUE: Targeted ultrasound of the indicated area was performed. Don scale images were saved. ULTRASOUND FINDINGS: Finding 1: There are no suspicious sonographic findings to correspond with the focal pain in the left breast at 2 o'clock, 7 cm from the nipple. Finding 2: There is a simple cyst measuring 2.2 x 1.6 x 2.1 cm in the left breast at 2 o'clock, 5 cm from the nipple. Internal echotexture is anechoic. Color flow imaging demonstrates vascularity is not present. IMPRESSION IMPRESSION: Finding 1: There is no suspicious imaging finding to correspond with the focal pain in the left breast at 2 o'clock, 7 cm from the nipple. Clinical correlation and follow-up is recommended with imaging follow-up as clinically indicated. Finding 2: The 2.2 x 1.6 x 2.1 cm simple cyst in the left breast at 2 o'clock, 5 cm from the nipple is benign. Return to annual screening mammogram is recommended. Annual mammogram will be due in 3 months. BI-RADS Category 2: Benign RISK: Based on the Tyrer-Cuzick (TC) risk assessment model, this patient has a 19.1% lifetime risk of developing breast cancer, meaning they are at average risk for developing breast cancer. However, this is only an estimate based on available history provided on the patient's questionnaire. We encourage all patients to talk with their providers about these results, further recommendations for managing breast health, and appropriate supplemental screening options if the patient has dense breast tissue. Interpreting Radiologist: Nils Zimmerman M.D. Electronically signed on: 11/13/2024 Wire Mesh Gate Assembler: LONA Transcribe Date/Time: Nov 13 2024 8:39A Dictated by : NILS ZIMMERMAN MD This examination was interpreted and the report reviewed and electronically signed by: NILS ZIMMERMAN MD on Nov 13 2024 11:25AM EST [facility] Radiology Study observation (narrative) [facility] ZOLTAN DIAG W JOSE RAFAEL LTon 025 [facility] DIAG W JOSE RAFAEL LT * * *Final Report* * * DATE OF EXAM: Nov 13 2024 8:48AM LELA 0628 - [facility] DIAG W JOSE RAFAEL LT / PROCEDURE REASON: multiple diagnoses * * * * Physician Interpretation * * * * [place] [id number] #[id number] - [facility] DIAG W JOSE RAFAEL LT #[id number] - [facility] US BREAST LTD LT HISTORY: Patient is 44 years old and is seen for diagnostic evaluation of focal pain the left breast. Patient states no personal history of breast cancer. Patient states no personal history of other cancers. COMPARISON STUDIES: The present examination has been compared to prior imaging studies dated 01/13/2022 (mammogram), 01/15/2023 (mammogram), 01/19/2024 (mammogram), 01/22/2024 (mammogram) and 01/22/2024 (ultrasound). MAMMOGRAM TECHNIQUE: The study was acquired using full field digital technology and interpreted from soft copy. Digital Breast Tomosynthesis (DBT) images were obtained and used to assist in the interpretation of this examination. MAMMOGRAM FINDINGS: The breast is extremely dense, which lowers the sensitivity of mammography. Finding 1: There are no suspicious mammographic findings to correspond with the focal pain in the left breast at 2 o'clock, 7 cm from the nipple. ULTRASOUND TECHNIQUE: Targeted ultrasound of the indicated area was performed. Don scale images were saved. ULTRASOUND FINDINGS: Finding 1: There are no suspicious sonographic findings to correspond with the focal pain in the left breast at 2 o'clock, 7 cm from the nipple. Finding 2: There is a simple cyst measuring 2.2 x 1.6 x 2.1 cm in the left breast at 2 o'clock, 5 cm from the nipple. Internal echotexture is anechoic. Color flow imaging demonstrates vascularity is not present. IMPRESSION: Finding 1: There is no suspicious imaging finding to correspond with the focal pain in the left breast at 2 o'clock, 7 cm from the nipple. Clinical correlation and follow-up is recommended with imaging follow-up as clinically indicated. Finding 2: The 2.2 x 1.6 x 2.1 cm simple cyst in the left breast at 2 o'clock, 5 cm from the nipple is benign. Return to annual screening mammogram is recommended. Annual mammogram will be due in 3 months. BI-RADS Category 2: Benign RISK: Based on the Tyrer-Cuzick (TC) risk assessment model, this patient has a 19.1% lifetime risk of developing breast cancer, meaning they are at average risk for developing breast cancer. However, this is only an estimate based on available history provided on the patient's questionnaire. We encourage all patients to talk with their providers about these results, further recommendations for managing breast health, and appropriate supplemental screening options if the patient has dense breast tissue. Interpreting Radiologist: Nils Zimmerman M.D. Electronically signed on: 11/13/2024 Wire Mesh Gate Assembler: LONA Transcribe Date/Time: Nov 13 2024 8:39A Dictated by : NILS ZIMMERMAN MD This examination was interpreted and the report reviewed and electronically signed by: NILS ZIMMERMAN MD on Nov 13 2024 11:25AM EST [id number] [facility] US BREAST LTD LTon 11-13 [facility] BREAST LTD * * *Final Report* * * DATE OF EXAM: Nov 13 2024 9:08AM LESLY 0593 - [facility] Coull BREAST LTD LT / PROCEDURE REASON: multiple diagnoses * * * * Physician Interpretation * * * * [place] [address] #[id number] - [facility] VIANEY MANTILLA LT #[id number] - [facility] US BREAST LTD LT HISTORY: Patient is 44 years old and is seen for diagnostic evaluation of focal pain the left breast. Patient states no personal history of breast cancer. Patient states no personal history of other cancers. COMPARISON STUDIES: The present examination has been compared to prior imaging studies dated 01/13/2022 (mammogram), 01/15/2023 (mammogram), 01/19/2024 (mammogram), 01/22/2024 (mammogram) and 01/22/2024 (ultrasound). MAMMOGRAM TECHNIQUE: The study was acquired using full field digital technology and interpreted from soft copy. Digital Breast Tomosynthesis (DBT) images were obtained and used to assist in the interpretation of this examination. MAMMOGRAM FINDINGS: The breast is extremely dense, which lowers the sensitivity of mammography. Finding 1: There are no suspicious mammographic findings to correspond with the focal pain in the left breast at 2 o'clock, 7 cm from the nipple. ULTRASOUND TECHNIQUE: Targeted ultrasound of the indicated area was performed. Don scale images were saved. ULTRASOUND FINDINGS: Finding 1: There are no suspicious sonographic findings to correspond with the focal pain in the left breast at 2 o'clock, 7 cm from the nipple. Finding 2: There is a simple cyst measuring 2.2 x 1.6 x 2.1 cm in the left breast at 2 o'clock, 5 cm from the nipple. Internal echotexture is anechoic. Color flow imaging demonstrates vascularity is not present. IMPRESSION: Finding 1: There is no suspicious imaging finding to correspond with the focal pain in the left breast at 2 o'clock, 7 cm from the nipple. Clinical correlation and follow-up is recommended with imaging follow-up as clinically indicated. Finding 2: The 2.2 x 1.6 x 2.1 cm simple cyst in the left breast at 2 o'clock, 5 cm from the nipple is benign. Return to annual screening mammogram is recommended. Annual mammogram will be due in 3 months. BI-RADS Category 2: Benign RISK: Based on the Tyrer-Cuzick (TC) risk assessment model, this patient has a 19.1% lifetime risk of developing breast cancer, meaning they are at average risk for developing breast cancer. However, this is only an estimate based on available history provided on the patient's questionnaire. We encourage all patients to talk with their providers about these results, further recommendations for managing breast health, and appropriate supplemental screening options if the patient has dense breast tissue. Interpreting Radiologist: Nils Zimmerman M.D. Electronically signed on: 11/13/2024 Wire Mesh Gate Assembler: LONA Transcribe Date/Time: Nov 13 2024 8:59A Dictated by : NILS ZIMMERMAN MD This examination was interpreted and the report reviewed and electronically signed by: NILS ZIMMERMAN MD on Nov 13 2024 11:25AM EST [id number] [facility] No Panel InformationOrdered By: [facility] on 11-13-2024 [facility] Breast - left limitedon 0 11-13-2024 IMPRESSION: Finding 1: There is no suspicious imaging finding to correspond with the focal pain in the left breast at 2 o'clock, 7 cm from the nipple. Clinical correlation and follow-up is recommended with imaging follow-up as clinically indicated. Finding 2: The 2.2 x 1.6 x 2.1 cm simple cyst in the left breast at 2 o'clock, 5 cm from the nipple is benign. Return to annual screening mammogram is recommended. Annual mammogram will be due in 3 months. BI-RADS Category 2: Benign RISK: Based on the Tyrer-Cuzick (TC) risk assessment model, this patient has a 19.1% lifetime risk of developing breast cancer, meaning they are at average risk for developing breast cancer. However, this is only an estimate based on available history provided on the patient's questionnaire. We encourage all patients to talk with their providers about these results, further recommendations for managing breast health, and appropriate supplemental screening options if the patient has dense breast tissue. Interpreting Radiologist: Nils Zimmerman M.D. Electronically signed on: 11/13/2024 Wire Mesh Gate Assembler: LONA Transcribe Date/Time: Nov 13 2024 8:59A Dictated by : NILS ZIMMERMAN MD This examination was interpreted and the report reviewed and electronically signed by: NILS ZIMMERMAN MD on Nov 13 2024 11:25AM [facility] * * *Final Report* * * DATE OF EXAM: Nov 13 2024 9:08AM LESLY 0593 - [facility] US BREAST LTD LT / PROCEDURE REASON: multiple diagnoses * * * * Physician Interpretation * * * * [place] [address] #[id number] - [facility] VIANEY Conti JOSE RAFAEL LT #[id number] - [facility] US BREAST LTD LT HISTORY: Patient is 44 years old and is seen for diagnostic evaluation of focal pain the left breast. Patient states no personal history of breast cancer. Patient states no personal history of other cancers. COMPARISON STUDIES: The present examination has been compared to prior imaging studies dated 01/13/2022 (mammogram), 01/15/2023 (mammogram), 01/19/2024 (mammogram), 01/22/2024 (mammogram) and 01/22/2024 (ultrasound). MAMMOGRAM TECHNIQUE: The study was acquired using full field digital technology and interpreted from soft copy. Digital Breast Tomosynthesis (DBT) images were obtained and used to assist in the interpretation of this examination. MAMMOGRAM FINDINGS: The breast is extremely dense, which lowers the sensitivity of mammography. Finding 1: There are no suspicious mammographic findings to correspond with the focal pain in the left breast at 2 o'clock, 7 cm from the nipple. ULTRASOUND TECHNIQUE: Targeted ultrasound of the indicated area was performed. Don scale images were saved. ULTRASOUND FINDINGS: Finding 1: There are no suspicious sonographic findings to correspond with the focal pain in the left breast at 2 o'clock, 7 cm from the nipple. Finding 2: There is a simple cyst measuring 2.2 x 1.6 x 2.1 cm in the left breast at 2 o'clock, 5 cm from the nipple. Internal echotexture is anechoic. Color flow imaging demonstrates vascularity is not present. [facility] Provider, Justino Mckenna Chili - 11/13/2024 * * *Final Report* * * DATE OF EXAM: Nov 13 2024 9:08AM LESLY 0593 - [facility] Coull BREAST LTD LT / PROCEDURE REASON: multiple diagnoses * * * * Physician Interpretation * * * * [place] [address] #[id number] - [facility] VIANEY MANTILLA LT #[id number] - [facility] US BREAST LTD LT HISTORY: Patient is 44 years old and is seen for diagnostic evaluation of focal pain the left breast. Patient states no personal history of breast cancer. Patient states no personal history of other cancers. COMPARISON STUDIES: The present examination has been compared to prior imaging studies dated 01/13/2022 (mammogram), 01/15/2023 (mammogram), 01/19/2024 (mammogram), 01/22/2024 (mammogram) and 01/22/2024 (ultrasound). MAMMOGRAM TECHNIQUE: The study was acquired using full field digital technology and interpreted from soft copy. Digital Breast Tomosynthesis (DBT) images were obtained and used to assist in the interpretation of this examination. MAMMOGRAM FINDINGS: The breast is extremely dense, which lowers the sensitivity of mammography. Finding 1: There are no suspicious mammographic findings to correspond with the focal pain in the left breast at 2 o'clock, 7 cm from the nipple. ULTRASOUND TECHNIQUE: Targeted ultrasound of the indicated area was performed. Don scale images were saved. ULTRASOUND FINDINGS: Finding 1: There are no suspicious sonographic findings to correspond with the focal pain in the left breast at 2 o'clock, 7 cm from the nipple. Finding 2: There is a simple cyst measuring 2.2 x 1.6 x 2.1 cm in the left breast at 2 o'clock, 5 cm from the nipple. Internal echotexture is anechoic. Color flow imaging demonstrates vascularity is not present. IMPRESSION IMPRESSION: Finding 1: There is no suspicious imaging finding to correspond with the focal pain in the left breast at 2 o'clock, 7 cm from the nipple. Clinical correlation and follow-up is recommended with imaging follow-up as clinically indicated. Finding 2: The 2.2 x 1.6 x 2.1 cm simple cyst in the left breast at 2 o'clock, 5 cm from the nipple is benign. Return to annual screening mammogram is recommended. Annual mammogram will be due in 3 months. BI-RADS Category 2: Benign RISK: Based on the Tyrer-Cuzick (TC) risk assessment model, this patient has a 19.1% lifetime risk of developing breast cancer, meaning they are at average risk for developing breast cancer. However, this is only an estimate based on available history provided on the patient's questionnaire. We encourage all patients to talk with their providers about these results, further recommendations for managing breast health, and appropriate supplemental screening options if the patient has dense breast tissue. Interpreting Radiologist: Nils Zimmerman M.D. Electronically signed on: 11/13/2024 Wire Mesh Gate Assembler: LONA Transcribe Date/Time: Nov 13 2024 8:59A Dictated by : NILS ZIMMERMAN MD This examination was interpreted and the report reviewed and electronically signed by: NILS ZIMMERMAN MD on Nov 13 2024 11:25AM EST [facility] Radiology Study observation (narrative) [facility] CNOVon 10-26-2024 CNOV Office Visit (OBGYWM ) IRIS VACA ([id number]) 1980 F Date Time Provider Department 10/26/24 2:20 PM REGINE PEÑA OBGYWM During your visit today, we recorded the following information about you: Blood pressure Weight Last Period 11274 69.9 kg 10/02/24 Regine Peña MD 10/26/2024 2:57 PM Signed Iris is a 44 year old who presents for an annual gynecologic exam with complaints, had some breast pain and saw GRAIN ELEVATOR MAN and f/u imaging ordered. Not bothering her now . Menses: cycles every 21-28 days and 4-7 days of flow Menstrual flow: one day heavy then light Bleeding amount bothersome: No Contraception: Vasectomy Contraception frequency: Always HPV vaccine: No HPV:negative Last pap smear: 2019 History of abnormal pap: No Last mammogram: up to date Sexually active: Yes OB History T2 L2 SAB0 IAB0 Ectopic0 Multiple0 Live Births2 Comment: First - 2 vessel cord, SGA, breech so had c/s. Had first trimester bleeding. Case Assembler History LMP: 10/02/2024 (Approximate), Having periods Age at Menarche: Age at First : Age at Menopause: Case Assembler History Comments: Sexual Activity: Yes; Male Contraception: Vasectomy PAST MEDICAL HISTORY Diagnosis Date NEGATIVE MEDICAL HISTORY PAST SURGICAL HISTORY Procedure Laterality Date DELIVERY ONLY 2008, 2011 , low transverse EXTRACTION, ERUPTED TOOTH OR EXPOSED ROOT (ELEVATION AND/OR FORCEPS REMOVAL) FAMILY HISTORY Problem Relation Age of Onset Cancer Mother other (Other- multiple myeloma) Mother other (Ocular Myasthenia Gravis) Father Prostate Cancer Father Cancer Maternal Grandmother 67 Ovarian Cancer Heart Paternal Grandmother Diabetes Paternal Grandmother Heart Paternal Grandfather [place] Breast Cancer Maternal Aunt 40 SOCIAL HISTORY Social History Tobacco Use Smoking status: Never Smokeless tobacco: Never Vaping Use Vaping status: Never Used Substance Use Topics Alcohol use: Yes Comment: Occasionally Drug use: No REVIEW OF SYSTEMS Abdomen: No abdominal pain, nausea, vomiting, diarrhea, or constipation. No bloating, early satiety, indigestion, or increased flatulence. Bladder: No dysuria, gross hematuria, urinary frequency, urinary urgency, or incontinence. Breast: No breast lumps, nipple d/c, overlying skin changes, redness or skin retraction. Allergies and current medication updated:Yes SENSITIVE EXAM: The sensitive examination was discussed with the Patient or Patient's Authorized Weighing Station Operator. As applicable, any other physician, advance practice provider, medical student, or other health professional student that will be observing or involved in the sensitive examination for educational or training purposes was discussed with the Patient or Authorized Weighing Station Operator. The Patient or Authorized Weighing Station Operator has agreed to proceed with the sensitive examination. (Sensitive examination includes inspection and/or palpation of the breasts, pelvis, prostate and anorectal regions). EXAM: BP 112/74 Wt 154 lb (69.9kg) LMP 10/02/2024 GENERAL: pleasant, female in no apparent distress HEENT: Normocephalic, atraumatic, mucus membranes moist, and no lesions NECK: Supple, full range of motion, no adenopathy, and thyroid normal DERMATOLOGY: Normal, without lesions, non-icteric, and non-hirsute BREAST: soft, non-tender, symmetric, no dominant mass, normal nipple-areolar complex, no lymphadenopathy, and no nipple discharge CHEST: Normal inspiratory effort ABDOMEN: soft, non-tender, and no masses PELVIC: external genitalia normal, normal Bartholin's glands, urethra, [place]'s glands, no vulvar lesions, no cervical lesions, good vaginal support, physiologic discharge present, normal appearing perineal body and perianal region BIMANUAL: uterus normal size, shape and consistency, no adnexal masses, and non-tender RECTOVAGINAL: deferred. NEURO: alert and oriented x3,exam grossly non-focal EXTREMITIES: normal ASSESSMENT/PLAN: 1) Health maintenance: Pap done with HPV. Mammogram ordered. 2) Contraception: vasectomy. Contraceptive options reviewed and information provided. 3) STD screening: Declined STD check. 4) Follow up one year or sooner as needed Regine Peña MD Allergies As of Date: 10/26/2024 (No Known Allergies) Date Reviewed: 10/26/2024 Reviewed by: Regine Peña MD - Fully Assessed Reason for Visit: Yearly Exam [187] Primary Visit Diagnosis:Encounter for gynecological examination (general) (routine) without abnormal findings [Z01.419] Other Visit Diagnoses:Screening for cervical cancer [Z12.4] Encounter for screening for human papillomavirus (HPV) [Z11.51] Encounter for screening mammogram for breast cancer [Z12.31] Order(s):PAP TEST [[id number]] Order #: [id number] ZOLTAN SCREENING W JOSE RAFAEL [[id number]] Ord (more content not included)... Normal [facility] HIGH RISK HUMAN PAPILLOMA HIMA (HPV), PCR FOR DETECTION AND GENOTYPINGon 10-26-2024 HPV 16 Ag Ql (Unsp spec) Not detected Normal Not detected [facility] Comment on above: Order Comment: Speci men Type: FLUID SPECIMEN Ordering Facility: [facility] Address: [address] [place] [address] Performed By: #### H PVHRT #### [facility] CLIA [id number] [address] [place] [address] [place] [address] [place] HPV 18 Ag Ql (Unsp spec) Not detected Normal Not detected [facility] Comment on above: Order Comment: Speci men Type: FLUID SPECIMEN Ordering Facility: [facility] Address: [address] [place] [address] Performed By: #### H PVHRT #### [facility] CLIA [id number] [address] [place] [address] [place] HPV 31+33+35+39+45+51+52+56+5 8+59+66+68 DNA ZHANNA+probe Ql (Cvx) Not detected Normal Not detected [facility] Comment on above: Order Comment: Speci men Type: FLUID SPECIMEN Ordering Facility: [facility] Address: [address] [place] [address] Result Comment: High Risk HPV Other Type includes HPV types 31, 33, 35, 39, 45, 51, 52, 56, 58, 59, 66 and 68. Performed By: #### H PVHRT #### [facility] CLIA [id number] [address] [place] [address] [place] PAP TESTon 10-26-2024 ADEQUACY Satisfactory for interpretation. Normal [facility] Comment on above: Order Comment: Speci men Type: FLUID SPECIMEN Ordering Facility: [facility] Address: [address] [place] [address] Performed By: #### L [id number] #### [facility] CLIA [id number] [address] [place] [address] [place] [facility] CLIA [id number] [address] [place] [address] [place] CASE REPORT Normal [facility] Comment on above: Order Comment: Speci men Type: FLUID SPECIMEN Ordering Facility: [facility] Address: [address] [place] [address] Result Comment: Gyne cologic Cytology Report Case: [id number] Authorizing Provider: Regine Peña MD Collected: 10/26/2024 03:07 PM Ordering Location: OB/Gynecology Received: 10/26/2024 04:21 PM First Screen: Gladkaya, Gabriela, CT, ASCP Specimen: Pap Test, ThinPrep, Cervix Performed By: #### L [id number] #### [facility] CLIA [id number] [address] [id number] [place] [facility] CLIA [id number] [address] [place] [address] [place] CLINICAL HISTORY, CYTOLOGY, SOLID PROPELLANT PROCESSOR Routine Exam Normal [facility] Comment on above: Order Comment: Speci men Type: FLUID SPECIMEN Ordering Facility: [facility] Address: [address] [place] [address] Performed By: #### L [id number] #### [facility] CLIA [id number] [address] [place] [address] [place] [facility] CLIA [id number] [address] [place] [address] [place] FINAL PERFORMING LAB Normal [facility] Comment on above: Order Comment: Speci men Type: FLUID SPECIMEN Ordering Facility: [facility] Address: [address] [place] [address] Result Comment: Tech nical component, dry chain operator screening performed at [facility], [address] [place] [address] CLIA# [id number] Diagnostic interpretation performed at [facility], [address] [id number] CLIA# [id number] Plumber Supervisor: Leeanne Flood M.D. Performed By: #### L [id number] #### [facility] CLIA [id number] [address] [place], [place] [id number] [place] [facility] CLIA [id number] [address] [place] [address] [place] INTERPRETATION, CYTOLOGY, SOLID PROPELLANT PROCESSOR Normal [facility] Comment on above: Order Comment: Speci men Type: FLUID SPECIMEN Ordering Facility: [facility] Address: [address] [place] [address] Result Comment: Nega tive for intraepithelial lesion or malignancy. Performed By: #### L [id number] #### [facility] CLIA [id number] [address] [place] [address] [place] [facility] CLIA [id number] [address] [place] [address] [place] LMP 10/02/2024 Normal [facility] Comment on above: Order Comment: Speci men Type: FLUID SPECIMEN Ordering Facility: [facility] Address: [address] [place] [address] Performed By: #### L [id number] #### [facility] CLIA [id number] [address] [place] [address] [place] [facility] CLIA [id number] [address] [place] [address] [place] PAP DISCLAIMER COMMENT The Pap Smear is a screening test for cervical cancer. False negative results occur with all screening tests, emphasizing the need for rescreening at recommended intervals, and clinical correlation. Normal [facility] Comment on above: Order Comment: Speci men Type: FLUID SPECIMEN Ordering Facility: [facility] Address: [address] [place] [address] Performed By: #### L [id number] #### [facility] CLIA [id number] [address] [place] [address] [place] [facility] CLIA [id number] [address] [place] [address] [place] PAP SUPERVISOR INTELLIGENCE ANALYST COMMENT This specimen has be en analyzed by the ThinPrep Imaging System, an automated imaging and review system, which assists the laboratory in evaluating cells on ThinPrep Pap tests. Following automated imaging, selected kumar from every slide are reviewed by a dry chain operator. Normal [facility] Comment on above: Order Comment: Speci men Type: FLUID SPECIMEN Ordering Facility: [facility] Address: [address] [place] [address] Performed By: #### L [id number] #### [facility] CLIA [id number] [address] [id number] [place] [facility] CLIA [id number] [address] [id number] [place] Inital Evaluation (1) - PTon 10-02-2024 Inital Evaluation (1) - PT [facility] [address] [place] [address] / REHABILITATION SERVICES INITIAL EVALUATION MR#: [id number] Acct: [id number] Name: IRIS VACA Rep #: [id number] : 1980 44 From: Ashu Zacarias DPT, RM, CSCS Referring Dr.: aHmlet Reyes NP Status: R EG RCR Insurance: [facility] [id number] SELF PAY INSURANCE Patient's Visit Information Visit Information Visit Information: IRIS VACA is a 44 year old F referred to Physical Therapy by JOHN Ferreira with a diagnosis of L lateral epicondylitis. Date of Evaluation: 10/02/24 Physical Therapist: Ashu Zacarias DPT, RM, CSCS Visit Plan Frequency: Every Other Week Duration: 2 Months Plan: Pt to do wrist extensor stretch adn aggressive cervical ret ext at home and check with OBGYN on armpit pain(appointment mid October) Will progress next session with eccentric wriwst strength adn further bracing or activity modifciaiton for lat epicondylitis. Progression of cervical progression of forces and strength for posture c/s RC and scap strength as needed for possible L shoulder impingement IE wrist extensor stretch 30 5x, cervical ret and ext with OP 10x 8x/day for scap, posture, activity modificaiton with driving and typing, benefits of brace for wrist. Subjective Subjective: Pain under la arm in armpit area. Had cyst last spring on breast and that turned out fine. Started getting pain under that arm this fall. OBGYN is f/u with breast tissue. pain is in the armpit since July insidiously. Also gets L lateral elbow pain starting 2 months ago insidiously. Armpit pain 2/10 intermittent with driving(drives with L arm up in the air. Worse with typing and driving while doing them. No lingering afterwards. Elbow pain 2/10 intermittent, with driving and typing. Neck pain is not an issue but L scapula noticeable. Sleeping is Ok. 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 Hobbies: walks. Basic ADLs all I. Pain armpit and elbow: Pain Intensity (Out of 10): 0 Pain Intensity Range: 0 and 2 Objective Objective: Postuer is forward head adn protracted sca slightly. Palpation is tender under humeral head in L arm pit and at supra insertion as well as slightly lat epicondyle L elbow and L scapula. Scapular AROM WFL B without pain. cervical aROM gives L scap pain end range extension only. Shoulder aROM WFL, slight end range pain flexion in arm pit, full rotations and elbow and wrist and thumb are full 2/3 reflexes R and L bi and tri No numbness or sensory deficitis to gross light touch in UE B. strength. shoulder without pain flexion and abduction 4- er pain under L armpit 3+ vs 4- on R, IR 4- B no pain. biceps and triceps 4/5 without pain wrist extension painful L 4 and R not painful and 4, 4+ wrist flexion B, thumb extension 4 B. + lat epicondyle test L + c/s compression L - HK, - neer, - sulcus, - labral test L. Balance/Special Test Scores Quick DASH Score: 2.2725 Goals Goal 1:: full cervical aROM without pain in scapula Goal Time Frame: 4-6 Weeks Goal 2:: I management of L lateral epicondylitis and upper half strength Goal Time Frame: 4-6 Weeks Goal 3:: Patient feel 75% better in all pain complain ts at scap, elbow and armpit. Goal Time Frame: 4-6 Weeks Goal 4:: perfect quickdash score. Goal Time Frame: 4-6 Weeks Rehabilitation Potential Physical Therapy Diagnosis: L elbow, scap and armpit pain causing uncomfortable funciton Rehabilitation Potential: Fair Anticipated Interventions Patient/Client Instruction: Educate patient on: Condition and Plan of Care For the Purpose of:: To decrease pain, To increase ROM, To improve nutrient delivery to tissue and To increase tolerance to activity/condition/pos ition Therapeutic Exercise to Include: Strength training, Postural training, Flexibilty training, Passive ROM and Active ROM For the Purpose of:: To decrease pain, To increase ROM, To improve nutrient delivery to tissue, To improve muscle performance and motor function, To increase tolerance to activity/condition/pos ition and To increase flexibility/ROM Manual Therapy Techniques to Include: Mobilization, Passive ROM, Soft tissue mobilization and Other For the Purpose of:: To decrease pain, To increase ROM, To improve nutrient delivery to tissue, To improve muscle performance and motor function and To increase tolerance to activity/condition/pos ition Cryotherapy (ice pack, ice massage): Yes For the Purpose of:: To decrease swelling/inflammation Text: Thank you for the opportunity to evaluate your patient. For Medicare and Medicare HMO plans, please review the plan of care and approve it. It will need to be FAXED BACK to us at [phone] for Medicare purposes. For Medicare only, by sign (more content not included)... Normal [facility] CNOVon 09-28-2024 [facility] Office Visit (OBGYWM ) IRIS VACA ([id number]) 1980 F Date Time Provider Department 09/28/24 2:15 PM SUMAN MOREIRA OBGYWM During your visit today, we recorded the following information about you: Blood pressure Weight Last Period 120/70 69.4 kg 09/11/24 Suman Moreira APRN.RECEPTIONIST/TELEPHONE OPERATOR 09/28/2024 2:23 PM Signed Blending Operator offered: Patient declines. Iris Vaca is a 43 year old female who presents for problem visit for a left breast lump and pain for 2 week(s). HPI: Iris presents for left breast pain and lump. The pain is intermittent. She seen her PCP 2 weeks ago and he said there was a possibility of a pulled muscle, but no breast exam was performed. No redness, warmth, or swelling. No nipple discharge or itching. Breast cyst noted to left breast on imaging in January 2024. There is no sonographic evidence of malignancy. The 2.6 cm x 2.1 cm x 0.9 cm oval mass in the left breast is consistent with a simple cyst and is benign. Return to annual mammogram screening schedule is recommended. OB History T2 L2 SAB0 IAB0 Ectopic0 Multiple0 Live Births2 Comment: First - 2 vessel cord, SGA, breech so had c/s. Had first trimester bleeding. Case Assembler History LMP: 09/11/2024 (Exact Date), Having periods Age at Menarche: Age at First : Age at Menopause: Case Assembler History Comments: Sexual Activity: Yes; Male Contraception: Vasectomy PAST MEDICAL HISTORY Diagnosis Date NEGATIVE MEDICAL HISTORY PAST SURGICAL HISTORY Procedure Laterality Date DELIVERY ONLY 2008, 2011 , low transverse EXTRACTION, ERUPTED TOOTH OR EXPOSED ROOT (ELEVATION AND/OR FORCEPS REMOVAL) FAMILY HISTORY Problem Relation Age of Onset Cancer Mother other (Other- multiple myeloma) Mother other (Ocular Myasthenia Gravis) Father Cancer Maternal Grandmother 67 Ovarian Cancer Heart Paternal Grandmother Diabetes Paternal Grandmother Heart Paternal Grandfather [place] Breast Cancer Maternal Aunt 40 Social History Tobacco Use Smoking status: Never Smokeless tobacco: Never Vaping Use Vaping status: Never Used Substance Use Topics Alcohol use: Yes Comment: Occasionally Drug use: No No current outpatient medications on file. No current facility-administered medications for this visit. Allergies As of Date: 09/28/2024 (No Known Allergies) Fully Assessed 09/28/2024 REVIEW OF SYSTEMS. Breast: No nipple d/c, overlying skin changes, redness or skin retraction. + breast pain and lump to left breast Expanded ROS: N/A Allergies and current medication updated:Yes SENSITIVE EXAM: The sensitive examination was discussed with the Patient or Patient's Authorized Weighing Station Operator. As applicable, any other physician, advance practice provider, medical student, or other health professional student that will be observing or involved in the sensitive examination for educational or training purposes was discussed with the Patient or Authorized Weighing Station Operator. The Patient or Authorized Weighing Station Operator has agreed to proceed with the sensitive examination. (Sensitive examination includes inspection and/or palpation of the breasts, pelvis, prostate and anorectal regions). EXAM: BP 120/70 Wt 153 lb (69.4kg) LMP 09/11/2024 GENERAL: pleasant, female in no apparent distress HEENT: Normocephalic, atraumatic, mucus membranes moist, and no lesions BREAST: soft, symmetric, normal nipple-areolar complex, no lymphadenopathy, and no nipple discharge + mobile 2 cm mass to left breast, 5 cm from nipple at 3 o'clock position, left breast fibrocystic CHEST: Normal inspiratory effort NEURO: alert and oriented x3,exam grossly non-focal EXTREMITIES: normal ASSESSMENT AND PLAN: 1. Breast pain - ICD9: 611.71, ICD10: N64.4 (primary diagnosis) 2. Mass of upper outer quadrant of left breast - ICD9: 611.72, ICD10: N63.21 - Likely a cyst - Recommend diagnostic imaging - Wear well supportive bra, can rotate Tylenol and Ibuprofen - Fibrocystic left breast - discussed aggravating and relieving factors RTO for annual or sooner as needed. Suman Moreira APRN.RECEPTIONIST/TELEPHONE OPERATOR Medical Decision Making: Problems: Low: Acute, uncomplicated illness or injury Data: Unique test result(s) reviewed: 1 Unique test(s) ordered: 2 Risk: Low: Low risk from testing/treatment Medical Decision Making Level: 3 - Low Allergies As of Date: 09/28/2024 (No Known Allergies) Date Reviewed: 09/28/2024 Reviewed by: Suman Moreira APRN.[facility] - Fully Assessed Reason for Visit: Breast Problem [16] Cmt: Left Breast Lump. Primary Visit Diagnosis:Breast pain [N64.4] Other Visit Diagnosis:Mass of upper outer quadrant of left breast [N63.21] Order(s):[facility] DIAGNOSTIC BILATERAL [[id number]] Order #: [id number] FUTURE US BREAST LTD LEFT [[id number]] Order #: [id number] FUTURE Problem List As Of Date 09/28/2024 Noted Resolved (more content not included)... Normal [facility] Absolute lymphocyte countOrd ered By: Ashu Richard on 02-15-2024 Lymphocytes Auto (Unsp spec) [#/Vol] 1.85 10*3/uL 0.83-4.51 [facility] Automated lymphocyte count a s percentage of total leukocytesOrdered By: Ashu Richard on 02-15-2024 Lymphocytes/100 WBC Auto (Unsp spec) 34.3 % 19-41 [facility] Basophil percentageOrdered B y: Ashu Richard on 02-15-2024 Basophils/100 WBC (Bld) 0.7 % 0-1 [facility] Bilirubin [Mass/Vol] 0.50 mg/dL 0.20-1.00 [facility] Comment on above: For patients on eltr ombopag therapy, use of Dimension Fred TBIL is not recommended. Chloride [Moles/Vol] 107 mmol/L 98-107 [facility] Cholesterol [Mass/Vol] 173 mg/dL <200 [facility] Comment on above: <200 mg/dL Desirable 200-240 mg/dL Borderline >240 mg/dL High Risk Eosinophils/100 WBC (Bld) 1.5 % 0-5 [facility] Glucose [Mass/Vol] 92 mg/dL 74-106 [facility] Hemoglobin (Bld) [Mass/Vol] 13.1 g/dL 12.0-15.0 [facility] Monocytes/100 WBC (Bld) 8.7 % 0-10 [facility] Neutrophils (Bld) [#/Vol] 3.0 10*3/uL 2.0-7.7 [facility] Neutrophils/100 WBC (Bld) 54.6 % 47-70 [facility] Potassium [Moles/Vol] 3.6 mmol/L 3.5-5.1 [facility] Protein [Mass/Vol] 7.1 g/dL 6.4-8.2 [facility] Sodium [Moles/Vol] 140 mmol/L 136-145 [facility] Triglyceride [Mass/Vol] 102 mg/dL <199 [facility] Comment on above: The drugs N-Acetylcy steine and Metamizole may falsely depress this assay.Serum Triglycerides Reference Interval Normal <150 mg/dL Borderline high 150 - 199 mg/dL High 200 - 499 mg/dL Very High > or = 500 mg/dL WBC (Bld) [#/Vol] 5.4 10*3/uL 4.4-11.0 [facility] Determination of erythrocyte mean corpuscular volume (MCV)Ordered By: Ashu Richard on 02-15-2024 MCV (RBC) [Entitic vol] 94.9 fL 81-99 [facility] Erythrocyte distribution wid th ratioOrdered By: Ashu Richard on 02-15-2024 Erythrocyte distribution width (RBC) [Ratio] 12.9 % 11.6-14.6 [facility] Erythrocyte distribution wid th standard deviationOrdered By: Ashu Richard on 02-15-2024 Erythrocyte distribution width (RBC) [Entitic vol] 45.0 fL 35.1-43.9 [facility] Hematocrit Auto (Bld) [Volum e fraction]Ordered By: Ashu Richard on 02-15-2024 Hematocrit (Bld) [Volume fraction] 40.6 % 37-47 [facility] Immature granulocytes/100 WB C Auto (Bld)Ordered By: Ashu Richard on 02-15-2024 Immature granulocytes/100 WBC (Bld) 0.200 % 0.0-0.9 [facility] Comment on above: IG% - Immature Granu locytes (promyelocytes, myelocytes and metamyelocytes) > 1% indicates that a LEFT SHIFT is Present. Laboratory - Chemistry and C hemistry - challengeOrdered By: Ashu Richard on 02-15-2024 Albumin/Globulin [Mass ratio] 1.2 {ratio} 0.9-2.4 [facility] ALP [Catalytic activity/Vol] 38 U/L 45-117 [facility] ALT [Catalytic activity/Vol] 18 U/L 13-56 [facility] Cholesterol in HDL [Mass/Vol] 55 mg/dL >40 [facility] Comment on above: The drugs N-Acetylcy steine and Metamizole may falsely depress this assay. Reference Range HDL <40 mg/dL Low HDL Cholesterol HDL >or= 60 mg/dL High HDL Cholesterol Cholesterol in LDL [Mass/Vol] 98 mg/dL 0-130 [facility] CO2 [Moles/Vol] 27.0 mmol/L 21.0-32.0 [facility] Globulin (S) [Mass/Vol] 3.3 g/dL 2.2-4.2 [facility] Urea nitrogen/Creatinine [Mass ratio] 13.3 mg/mg 10-20 [facility] Laboratory - Hematology and Cell countsOrdered By: Ashu Richard on 02-15-2024 MCH (RBC) [Entitic mass] 30.6 pg 27.0-32.0 [facility] MCHC (RBC) [Mass/Vol] 32.3 g/dL 32-36 [facility] Nucleated RBC/100 WBC (Bld) [Ratio] 0 % 0-5 [facility] Platelet mean volume (Bld) [Entitic vol] 10.7 fL 6.2-12.0 [facility] Platelets (Bld) [#/Vol] 278 10*3/uL 150-450 [facility] No Panel InformationOrdered By: Ashu Richard on 02-15-2024 Estimated GFR (MDRD) Amer 109 mL/min >60 [facility] Comment on above: GFR Calc Estimated GFR (MDRD) Non-Af Amer 90 mL/min >60 [facility] Comment on above: Non- GFR Calc VLDL Cholesterol 20 mg/dL 5-40 [facility] RBC Auto (Bld) [#/Vol]Ordere d By: Ashu Richard on 02-15-2024 RBC (Bld) [#/Vol] 4.28 10*6/uL 4.2-5.4 [facility] Serum or plasma calcium sami urement (mass/volume)Ordered By: Ashu Richard on 02-15-2024 Calcium [Mass/Vol] 8.9 mg/dL 8.5-10.1 [facility] Serum or plasma creatinine m easurement (mass/volume)Ordered By: Ashu Richard on 02-15-2024 Creatinine [Mass/Vol] 0.75 mg/dL 0.55-1.02 [facility] Comment on above: The validity of the calculated GFR & GFRAA in patients over 70 years has not been determined. Clinical correlation is essential. Serum or plasma urea nitroge n measurement (mass/volume)Ordered By: Ashu Richard on 02-15-2024 Urea nitrogen [Mass/Vol] 10 mg/dL 7-18 [facility] Thin prep Papanicolaou smear with manual screeningOrdered By: Ashu Richard on 02-15-2024 Thin prep Papanicolaou smear with manual screening 3.8 g/dL 3.2-5.0 [facility] Thin prep Papanicolaou smear with manual screening 16 U/L 15-37 [facility] Thin prep Papanicolaou smear with manual screening 6 15 [facility] DBT Breast - left diagnostic for implanton 01-22-2024 * * *Final Report* * * DATE OF EXAM: Jan 22 2024 8:56AM [facility] 0628 - [facility] DIAG W JOSE RAFAEL LT / PROCEDURE REASON: Abnormal mammogram * * * * Physician Interpretation * * * * RESULT: #[id number] - [facility] DIAG W JOSE RAFAEL LT #[id number] - [facility] US BREAST LTD LT UNILATERAL LEFT DIGITAL DIAGNOSTIC MAMMOGRAM TOMOSYNTHESIS WITH CAD: 01/22/2024 HISTORY: Abnormal Mammogram Left Callback Abnormal Mammogram. RESULT: TECHNIQUE: The study was acquired using full field digital technology and interpreted from soft copy. Digital Breast Tomosynthesis (DBT) images were obtained and used to assist in the interpretation of this examination. Current study was also evaluated with a Computer Aided Detection (CAD). Comparison is made to exams dated: 01/19/2024 mammogram, 01/15/2023 mammogram, and 01/13/2022 mammogram - [facility]. The left breast is extremely dense, which lowers the sensitivity of mammography. There is an oval equal density mass with a circumscribed margin in the left breast upper outer aspect middle depth. This is seen in additional views. No other significant masses or calcifications are seen in the breast. DIVISION OF RADIOLOGY Provider, [facility] - 01/22/2024 * * *Final Report* * * DATE OF EXAM: Jan 22 2024 8:56AM [facility] 0628 - [place] DIAG W JOSE RAFAEL LT / PROCEDURE REASON: Abnormal mammogram * * * * Physician Interpretation * * * * RESULT: #[id number] - [facility] DIAG W JOSE RAFAEL LT #[id number] - [facility] US BREAST LTD LT UNILATERAL LEFT DIGITAL DIAGNOSTIC MAMMOGRAM TOMOSYNTHESIS WITH CAD: 01/22/2024 HISTORY: Abnormal Mammogram Left Callback Abnormal Mammogram. RESULT: TECHNIQUE: The study was acquired using full field digital technology and interpreted from soft copy. Digital Breast Tomosynthesis (DBT) images were obtained and used to assist in the interpretation of this examination. Current study was also evaluated with a Computer Aided Detection (CAD). Comparison is made to exams dated: 01/19/2024 mammogram, 01/15/2023 mammogram, and 01/13/2022 mammogram - [facility]. The left breast is extremely dense, which lowers the sensitivity of mammography. There is an oval equal density mass with a circumscribed margin in the left breast upper outer aspect middle depth. This is seen in additional views. No other significant masses or calcifications are seen in the breast. IMPRESSION IMPRESSION: INCOMPLETE: NEEDS ADDITIONAL IMAGING EVALUATION The oval equal density mass in the left breast is indeterminate. An ultrasound is recommended. LIMITED ULTRASOUND OF LEFT BREAST: 01/22/2024 RESULT: Comparison is made to exams dated: 01/19/2024 mammogram, 01/15/2023 mammogram, and 01/13/2022 mammogram - [facility]. Color flow and real-time ultrasound of the left breast were performed. Don scale images of the real-time examination were reviewed. There is a benign 2.6 cm x 2.1 cm x 0.9 cm oval mass with a circumscribed margin in the left breast at 2 o'clock 5 cm from the nipple. This oval mass is anechoic with an abrupt boundary, internal echoes, and posterior acoustic enhancement. This correlates with mammography findings. Color flow imaging demonstrates that there is no vascularity present. IMPRESSION: BENIGN FINDING There is no sonographic evidence of malignancy. The 2.6 cm x 2.1 cm x 0.9 cm oval mass in the left breast is consistent with a simple cyst and is benign. Return to annual mammogram screening schedule is recommended. Ilsa Zuniga M.D., jr/hodan:01/22/2024 09:28:45 Multiple national specialty organizations have released breast cancer screening guidelines for women at average risk for developing breast cancer - guidelines that are based on both evidence and opinion, yet differ on when to start and how often to screen for breast cancer. With representation from Breast Imaging, Internal Medicine, Women's Health, Family Medicine, and Medical/Surgical Oncology, the [facility] has carefully reviewed the data and reached the following consensus: 1) All women should engage in shared decision-making with their providers to decide when to start and how often to screen; 2) All women should have the opportunity to start screening mammography at age 40; 3) For women ages 45-55, we recommend annual screening mammograms; 4) For women ages 55 and over, we support both the transition from an annual to a biennial interval if this aligns more with patient's values and preferences, or continuation with annual screening; 5) All women should discuss with their providers when to stop screening mammograms. Electrical Maintenance Supervisor(s): Georgia Larson, RT(R)(M), [facility]; Nila Parham RT(R)(M), [facility] OVERALL STUDY BIRADS: 2 Benign finding Wire Mesh Gate Assembler: Hodan Transcribe Date/Time: Jan 22 2024 8:49A Dictated by: ILSA ZUNIGA MD This examination was interpreted and the report reviewed and electronically signed by: ILSA ZUNIGA MD on Jan 22 2024 9:28AM EST [facility] ZOLTAN DIAG W JOSE RAFAEL LTon 024 ZOL[facility]AN DIAG W JOSE RAFAEL LT * * *Final Report* * * DATE OF EXAM: Jan 22 2024 8:56AM [facility] 0628 - ZOLTAN DIAG W JOSE RAFAEL LT / PROCEDURE REASON: Abnormal mammogram * * * * Physician Interpretation * * * * RESULT: #[id number] - [facility] DIAG W JOSE RAFAEL LT #[id number] - [place] US BREAST LTD LT UNILATERAL LEFT DIGITAL DIAGNOSTIC MAMMOGRAM TOMOSYNTHESIS WITH CAD: 01/22/2024 HISTORY: Abnormal Mammogram Left Callback Abnormal Mammogram. RESULT: TECHNIQUE: The study was acquired using full field digital technology and interpreted from soft copy. Digital Breast Tomosynthesis (DBT) images were obtained and used to assist in the interpretation of this examination. Current study was also evaluated with a Computer Aided Detection (CAD). Comparison is made to exams dated: 01/19/2024 mammogram, 01/15/2023 mammogram, and 01/13/2022 mammogram - [facility]. The left breast is extremely dense, which lowers the sensitivity of mammography. There is an oval equal density mass with a circumscribed margin in the left breast upper outer aspect middle depth. This is seen in additional views. No other significant masses or calcifications are seen in the breast. IMPRESSION: INCOMPLETE: NEEDS ADDITIONAL IMAGING EVALUATION The oval equal density mass in the left breast is indeterminate. An ultrasound is recommended. LIMITED ULTRASOUND OF LEFT BREAST: 01/22/2024 RESULT: Comparison is made to exams dated: 01/19/2024 mammogram, 01/15/2023 mammogram, and 01/13/2022 mammogram - [facility]. Color flow and real-time ultrasound of the left breast were performed. Don scale images of the real-time examination were reviewed. There is a benign 2.6 cm x 2.1 cm x 0.9 cm oval mass with a circumscribed margin in the left breast at 2 o'clock 5 cm from the nipple. This oval mass is anechoic with an abrupt boundary, internal echoes, and posterior acoustic enhancement. This correlates with mammography findings. Color flow imaging demonstrates that there is no vascularity present. IMPRESSION: BENIGN FINDING There is no sonographic evidence of malignancy. The 2.6 cm x 2.1 cm x 0.9 cm oval mass in the left breast is consistent with a simple cyst and is benign. Return to annual mammogram screening schedule is recommended. Ilsa Zuniga M.D., jr/hodan:01/22/2024 09:28:45 Multiple national specialty organizations have released breast cancer screening guidelines for women at average risk for developing breast cancer - guidelines that are based on both evidence and opinion, yet differ on when to start and how often to screen for breast cancer. With representation from Breast Imaging, Internal Medicine, Women's Health, Family Medicine, and Medical/Surgical Oncology, the [facility] has carefully reviewed the data and reached the following consensus: 1) All women should engage in shared decision-making with their providers to decide when to start and how often to screen; 2) All women should have the opportunity to start screening mammography at age 40; 3) For women ages 45-55, we recommend annual screening mammograms; 4) For women ages 55 and over, we support both the transition from an annual to a biennial interval if this aligns more with patient's values and preferences, or continuation with annual screening; 5) All women should discuss with their providers when to stop screening mammograms. Electrical Maintenance Supervisor(s): RT Hu(R)(M), [facility]; RT Meche(R)(M), [facility] OVERALL STUDY BIRADS: 2 Benign finding Wire Mesh Gate Assembler: Hodan Transcribe Date/Time: Jan 22 2024 8:49A Dictated by: ILSA ZUNIGA MD This examination was interpreted and the report reviewed and electronically signed by: ILSA ZUNIGA MD on Jan 22 2024 9:28AM EST [id number] Normal [facility] US BREAST LTD LTon 01-21 [facility] US BREAST LTD LT * * *Final Report* * * DATE OF EXAM: Jan 22 2024 9:28AM [id number] - [facility] US BREAST LTD LT / PROCEDURE REASON: Abnormal mammogram * * * * Physician Interpretation * * * * RESULT: #[id number] - [facility] DIAG W JOSE RAFAEL LT #[id number] - [facility] US BREAST LTD LT UNILATERAL LEFT DIGITAL DIAGNOSTIC MAMMOGRAM TOMOSYNTHESIS WITH CAD: 01/22/2024 HISTORY: Abnormal Mammogram Left Callback Abnormal Mammogram. RESULT: TECHNIQUE: The study was acquired using full field digital technology and interpreted from soft copy. Digital Breast Tomosynthesis (DBT) images were obtained and used to assist in the interpretation of this examination. Current study was also evaluated with a Computer Aided Detection (CAD). Comparison is made to exams dated: 01/19/2024 mammogram, 01/15/2023 mammogram, and 01/13/2022 mammogram - [facility]. The left breast is extremely dense, which lowers the sensitivity of mammography. There is an oval equal density mass with a circumscribed margin in the left breast upper outer aspect middle depth. This is seen in additional views. No other significant masses or calcifications are seen in the breast. IMPRESSION: INCOMPLETE: NEEDS ADDITIONAL IMAGING EVALUATION The oval equal density mass in the left breast is indeterminate. An ultrasound is recommended. LIMITED ULTRASOUND OF LEFT BREAST: 01/22/2024 RESULT: Comparison is made to exams dated: 01/19/2024 mammogram, 01/15/2023 mammogram, and 01/13/2022 mammogram - [facility]. Color flow and real-time ultrasound of the left breast were performed. Don scale images of the real-time examination were reviewed. There is a benign 2.6 cm x 2.1 cm x 0.9 cm oval mass with a circumscribed margin in the left breast at 2 o'clock 5 cm from the nipple. This oval mass is anechoic with an abrupt boundary, internal echoes, and posterior acoustic enhancement. This correlates with mammography findings. Color flow imaging demonstrates that there is no vascularity present. IMPRESSION: BENIGN FINDING There is no sonographic evidence of malignancy. The 2.6 cm x 2.1 cm x 0.9 cm oval mass in the left breast is consistent with a simple cyst and is benign. Return to annual mammogram screening schedule is recommended. Ilsa Zuniga M.D., jr/hodan:01/22/2024 09:28:45 Multiple national specialty organizations have released breast cancer screening guidelines for women at average risk for developing breast cancer - guidelines that are based on both evidence and opinion, yet differ on when to start and how often to screen for breast cancer. With representation from Breast Imaging, Internal Medicine, Women's Health, Family Medicine, and Medical/Surgical Oncology, the [facility] has carefully reviewed the data and reached the following consensus: 1) All women should engage in shared decision-making with their providers to decide when to start and how often to screen; 2) All women should have the opportunity to start screening mammography at age 40; 3) For women ages 45-55, we recommend annual screening mammograms; 4) For women ages 55 and over, we support both the transition from an annual to a biennial interval if this aligns more with patient's values and preferences, or continuation with annual screening; 5) All women should discuss with their providers when to stop screening mammograms. Electrical Maintenance Supervisor(s): Georgia Larson RT(R)(M), [facility]; Nila Parham RT(R)(M), [facility] OVERALL STUDY BIRADS: 2 Benign finding Wire Mesh Gate Assembler: Hodan Transcribe Date/Time: Jan 22 2024 8:49A Dictated by: ILSA ZUNIGA MD This examination was interpreted and the report reviewed and electronically signed by: ILSA ZUNIGA MD on Jan 22 2024 9:28AM EST [id number] Normal [facility] No Panel InformationOrdered By: [facility] Provider on 01-22-2024 [facility] No Panel Informationon 01-21 Radiology Study observation (narrative) Marcella gallardo [facility] US Breast - left limitedon 0 01-22-2024 * * *Final Report* * * DATE OF EXAM: Jan 22 2024 9:28AM SSW [id number] - [facility] US BREAST LTD LT / PROCEDURE REASON: Abnormal mammogram * * * * Physician Interpretation * * * * RESULT: #[id number] - [facility] DIAG W JOSE RAFAEL LT #[id number] - [facility] Coull BREAST LTD LT UNILATERAL LEFT DIGITAL DIAGNOSTIC MAMMOGRAM TOMOSYNTHESIS WITH CAD: 01/22/2024 HISTORY: Abnormal Mammogram Left Callback Abnormal Mammogram. RESULT: TECHNIQUE: The study was acquired using full field digital technology and interpreted from soft copy. Digital Breast Tomosynthesis (DBT) images were obtained and used to assist in the interpretation of this examination. Current study was also evaluated with a Computer Aided Detection (CAD). Comparison is made to exams dated: 01/19/2024 mammogram, 01/15/2023 mammogram, and 01/13/2022 mammogram - [facility]. The left breast is extremely dense, which lowers the sensitivity of mammography. There is an oval equal density mass with a circumscribed margin in the left breast upper outer aspect middle depth. This is seen in additional views. No other significant masses or calcifications are seen in the breast. DIVISION OF RADIOLOGY Provider, [facility] - 01/22/2024 * * *Final Report* * * DATE OF EXAM: Jan 22 2024 9:28AM SSW 0593 - [facility] [employer] / PROCEDURE REASON: Abnormal mammogram * * * * Physician Interpretation * * * * RESULT: #[id number] - [facility]AN JOHNG W JOSE RAFAEL LT #[id number] - [facility] Coull BREAST LTD LT UNILATERAL LEFT DIGITAL DIAGNOSTIC MAMMOGRAM TOMOSYNTHESIS WITH CAD: 01/22/2024 HISTORY: Abnormal Mammogram Left Callback Abnormal Mammogram. RESULT: TECHNIQUE: The study was acquired using full field digital technology and interpreted from soft copy. Digital Breast Tomosynthesis (DBT) images were obtained and used to assist in the interpretation of this examination. Current study was also evaluated with a Computer Aided Detection (CAD). Comparison is made to exams dated: 01/19/2024 mammogram, 01/15/2023 mammogram, and 01/13/2022 mammogram - [facility]. The left breast is extremely dense, which lowers the sensitivity of mammography. There is an oval equal density mass with a circumscribed margin in the left breast upper outer aspect middle depth. This is seen in additional views. No other significant masses or calcifications are seen in the breast. IMPRESSION IMPRESSION: INCOMPLETE: NEEDS ADDITIONAL IMAGING EVALUATION The oval equal density mass in the left breast is indeterminate. An ultrasound is recommended. LIMITED ULTRASOUND OF LEFT BREAST: 01/22/2024 RESULT: Comparison is made to exams dated: 01/19/2024 mammogram, 01/15/2023 mammogram, and 01/13/2022 mammogram - [facility]. Color flow and real-time ultrasound of the left breast were performed. Don scale images of the real-time examination were reviewed. There is a benign 2.6 cm x 2.1 cm x 0.9 cm oval mass with a circumscribed margin in the left breast at 2 o'clock 5 cm from the nipple. This oval mass is anechoic with an abrupt boundary, internal echoes, and posterior acoustic enhancement. This correlates with mammography findings. Color flow imaging demonstrates that there is no vascularity present. IMPRESSION: BENIGN FINDING There is no sonographic evidence of malignancy. The 2.6 cm x 2.1 cm x 0.9 cm oval mass in the left breast is consistent with a simple cyst and is benign. Return to annual mammogram screening schedule is recommended. Ilsa Zuniga M.D., jr/hodan:01/22/2024 09:28:45 Multiple national specialty organizations have released breast cancer screening guidelines for women at average risk for developing breast cancer - guidelines that are based on both evidence and opinion, yet differ on when to start and how often to screen for breast cancer. With representation from Breast Imaging, Internal Medicine, Women's Health, Family Medicine, and Medical/Surgical Oncology, the [facility] has carefully reviewed the data and reached the following consensus: 1) All women should engage in shared decision-making with their providers to decide when to start and how often to screen; 2) All women should have the opportunity to start screening mammography at age 40; 3) For women ages 45-55, we recommend annual screening mammograms; 4) For women ages 55 and over, we support both the transition from an annual to a biennial interval if this aligns more with patient's values and preferences, or continuation with annual screening; 5) All women should discuss with their providers when to stop screening mammograms. Electrical Maintenance Supervisor(s): RT Hu(R)(M), [facility]; RT Meche(R)(M), [facility] OVERALL STUDY BIRADS: 2 Benign finding Wire Mesh Gate Assembler: Hodan Transcrisylvain Date/Time: Jan 22 2024 8:49A Dictated by: ILSA ZUNIGA MD This examination was interpreted and the report reviewed and electronically signed by: ILSA ZUNIGA MD on Jan 22 2024 9:28AM EST [facility] CNCOon 01-20-2024 CNCO HNO ID: [id number] Author: COORDINATOR, MAMMOGRAPHY, ? Service: ? Author Type: Physician Type: Letter Filed: 01/20/2024 08:38 Note Text: January 20, 2024 PID: [id number] Iris Vaca [address] [place] [id number] Dear Ms. Vaca, Your recent breast imaging exam on 01/19/2024 showed a possible finding that requires additional imaging studies for a complete evaluation. Most such findings are probably benign (not cancer). Your mammogram demonstrates that you have dense breast tissue, which could hide abnormalities. Dense breast tissue, in and of itself, is a relatively common condition. Therefore, this information is not provided to cause undue concern; rather, it is to raise your awareness and promote discussion with your health care provider regarding the presence of dense breast tissue in addition to other risk factors. If you have a healthcare provider who ordered/prescribed your screening mammogram: Please call [phone] or [phone]: [phone] to schedule an appointment for your additional imaging (if you have not already done so). If you DO NOT have a healthcare provider (ie you did not have an order/prescription for your screening mammogram): Please call to schedule an appointment for your additional imaging (if you have not already done so). You must have an order/prescription from your physician when calling to schedule your appointment. If your order/prescription is not electronic, you must bring the hard copy with you on the day of your exam to avoid delays. Your imaging studies and reports are kept on file at [facility] as part of your permanent medical record, and are available for your continuing care. Thank you for allowing us to help in meeting your health care needs. Sincerely, Dr. Menjivar Interpreting Radiologist [facility] (Additional imaging) Normal [facility] 01-20-2024 CNPN Telephone (RADMN) IRIS VACA ([id number]) 1980 F Date Time Provider Department 01/20/24 ADELA MENJIVAR RADMN During your visit today, we recorded the following information about you: Allergies As of Date: 01/20/2024 (No Known Allergies) Date Reviewed: 06/01/2023 Reviewed by: Regine Peña MD - Fully Assessed Reason for Visit: Mammogram Result Call Back [[id number]] Problem List As Of Date 01/20/2024 Noted Resolved Endocervical polyp [N84.1] 06/20/2015 Encounter Status:Closed by ROSAURA CAAL on 01/20/24 Normal [facility] ZOLTAN SCREENING W TOMOon 01-18 ZOLTAN SCREENING W JOSE RAFAEL * * *Final Report* * * DATE OF EXAM: Jan 19 2024 8:42AM [id number] [id number] - ZOLTAN SCREENING W JOSE RAFAEL / PROCEDURE REASON: multiple diagnoses * * * * Physician Interpretation * * * * RESULT: #[id number] - ZOLTAN SCREENING W JOSE RAFAEL BILATERAL DIGITAL SCREENING MAMMOGRAM TOMOSYNTHESIS WITH CAD: 01/19/2024 HISTORY: /Screening Mammogram with JOSE RAFAEL - patient reports NO breast symptoms /priors available for comparison Multiple Diagnoses. RESULT: TECHNIQUE: The study was acquired using full field digital technology and interpreted from soft copy. Digital Breast Tomosynthesis (DBT) images were obtained and used to assist in the interpretation of this examination. Current study was also evaluated with a Computer Aided Detection (CAD). Comparison is made to exams dated: 01/15/2023 mammogram, 01/13/2022 ultrasound, 01/13/2022 ultrasound, and 01/13/2022 mammogram - [facility]. The breasts are extremely dense, which lowers the sensitivity of mammography. There is a focal asymmetry in the left breast at 1 o'clock middle depth. No other significant masses, calcifications, or other findings are seen in either breast. IMPRESSION: INCOMPLETE: NEEDS ADDITIONAL IMAGING EVALUATION The focal asymmetry in the left breast is indeterminate. An ultrasound is recommended. The exam was reviewed by a staff physician. kody Montemayor M.D., M.D., mc/hodan:01/20/2024 08:38:10 Electrical Maintenance Supervisor(s): RT Any(R)(M), [facility] letter sent: Additional Imaging Needed Mammogram BI-RADS: 0 Incomplete: needs additional imaging evaluation If this report indicates you need additional imaging, and it has NOT yet been performed, please call , to schedule. We sincerely thank you for choosing the [facility] for your breast imaging needs. Multiple national specialty organizations have released breast cancer screening guidelines for women at average risk for developing breast cancer - guidelines that are based on both evidence and opinion, yet differ on when to start and how often to screen for breast cancer. With representation from Breast Imaging, Internal Medicine, Women's Health, Family Medicine, and Medical/Surgical Oncology, the [facility] has carefully reviewed the data and reached the following consensus: 1) All women should engage in shared decision-making with their providers to decide when to start and how often to screen; 2) All women should have the opportunity to start screening mammography at age 40; 3) For women ages 45-55, we recommend annual screening mammograms; 4) For women ages 55 and over, we support both the transition from an annual to a biennial interval if this aligns more with patient's values and preferences, or continuation with annual screening; 5) All women should discuss with their providers when to stop screening mammograms. Wire Mesh Gate Assembler: Hodan Transcribe Date/Time: Jan 19 2024 8:17A Dictated by: MCKINLEY LEVI MD This examination was interpreted and the report reviewed and electronically signed by: ADELA MENJIVAR MD on Jan 20 2024 8:38AM EST [id number] [facility] (AGGBRCR) IRIS VACA ([id number]) 1980 F Date Time Provider Department 07/30/23 HOMA PACE During your visit today, we recorded the following information about you: Homa Pace LGC 07/30/2023 11:01 AM Signed Results left on patient voicemail. Iris Vaca's 68-gene Custom Cancer Panel through [employer] was negative for a pathogenic variant. Please see [employer] message for further discussion. ASHKAN Chaudhary Licensed, Certified Genetic Counselor Allergies As of Date: 07/30/2023 (No Known Allergies) Date Reviewed: 06/01/2023 Reviewed by: Regine Peña MD - Fully Assessed Reason for Visit: Results [95] Cmt: Genetic testing negative Problem List As Of Date 07/30/2023 Noted Resolved Endocervical polyp [N84.1] 06/20/2015 Encounter Status:Closed by HOMA PACE on 07/30/23 [facility] CNOVon 07-16-2023 CNOV Office Visit (AGGHENRIETTA R) IRIS VACA ([id number]) 1980 F Date Time Provider Department 07/16/23 12:30 PM HOMA PACE During your visit today, we recorded the following information about you: Hmoa Pace, [facility] 07/16/2023 12:46 PM Signed [facility] Consultation Note Genetic Counselor: Homa Pace MS, [facility] [place] Patient: Iris Vaca Patient Name and confirmed at initiation of visit HIGH LEVEL SUMMARY: The patient's family history is potentially suggestive of a hereditary ovarian cancer syndrome. The patient provided informed consent for 68-gene Custom Cancer Panel through [facility]. Results are expected in 2-3 weeks. IDENTIFICATION AND CHIEF COMPLAINT: Dr. Regine Peña requested a consultation for genetic counseling and risk assessment for Iris Vaca, a 42 year old female, for discussion of her family history of breast cancer and ovarian cancer. She presents to clinic today to discuss the possibility of a genetic predisposition to cancer, and to further clarify her risks, as well as her family members' risks for cancer. HISTORY OF PRESENT ILLNESS: Iris Vaca is a 42 year old female with no personal history of cancer. PAST MEDICAL HISTORY Diagnosis Date NEGATIVE MEDICAL HISTORY PAST SURGICAL HISTORY Procedure Laterality Date DELIVERY ONLY 2008, 2011 , low transverse EXTRACTION, ERUPTED TOOTH OR EXPOSED ROOT (ELEVATION AND/OR FORCEPS REMOVAL) CANCER SURVEILLANCE HISTORY: Mammograms: Yes Breast MRI's: No Breast Biopsies: No Colonoscopy: No EGD: No GI Polyps: N/A Prostate Cancer surveillance: N/A Dermatology: Yes / annual REPRODUCTIVE HISTORY AND PERSONAL RISK ASSESSMENT FACTORS: Weight: Last 1 Encounter Wt Readings: Date: Wt: 06/01/2023 67.6 kg (149 lb) Height: Last 1 Encounter Ht Readings: Date: Ht: 06/01/2023 169.5 cm (5' 6.75) Uterus Intact: Yes Ovaries Intact: Yes SOCIAL HISTORY: Social History Tobacco Use Smoking status: Never Smokeless tobacco: Never Vaping Use Vaping Use: Never used Substance Use Topics Alcohol use: Yes Comment: Occasionally Drug use: No FAMILY HISTORY: We obtained a detailed, 4-generation family history. Significant diagnoses are listed below: FAMILY HISTORY Problem Relation Age of Onset Cancer Mother other (Other- multiple myeloma) Mother other (Ocular Myasthenia Gravis) Father Cancer Maternal Grandmother 60 Ovarian Cancer Heart Paternal Grandmother Diabetes Paternal Grandmother Heart Paternal Grandfather [place] Breast Cancer Maternal Aunt 44 A copy of the patient's pedigree will be available under the scanned documents tab following today's visit. GENETIC COUNSELING RISK ASSESSMENT, DISCUSSION, AND SUGGESTED FOLLOW UP: We reviewed the natural history and genetic etiology of sporadic, familial and hereditary cancer syndromes. The patient's family history is potentially suggestive of: a hereditary cancer syndrome The patient meets NCCN HBOC testing criteria since her maternal grandmother had a personal history of ovarian cancer. We discussed that identification of a hereditary cancer syndrome may help her care providers tailor her medical management. If a mutation is detected, the National Comprehensive Cancer Network and/or expert opinion recommendations could include increased cancer surveillance and prophylactic surgery options. If a mutation is detected, the patient will be referred back to the referring provider and to any additional appropriate care providers to discuss the relevant options. Inheritance of hereditary cancer syndromes was discussed with the patient. If a mutation is not found in the patient, this will decrease the likelihood of a hereditary cancer syndrome for the patient, however it cannot rule it out as the explanation for the family history of cancer. Cancer surveillance options would be discussed for the patient according to the appropriate standard National Comprehensive Cancer Network and [place] Cancer [employer] guidelines, with consideration of their personal and family history risk factors. In this case, the patient will be referred back to their care providers for discussions of management. After considering the risks, benefits, and limitations, the patient chose to pursue and provided informed consent for the following testin-gene Custom Cancer Panel through [employer]. The 68-gene Custom Cancer Panel includes ANKRD26, APC, LUPE, AXIN2, BAP1, BARD1, BMPR1A, BRCA1, BRCA2, BRIP1, CDH1, CDK4, CDKN2A, CEBPA, CHEK2, CTNNA1, DDX41, DICER1, ELANE, EPCAM, ETV6, FH, FLCN, GATA2, GREM1, HOXB13, MAX, MBD4, MEN1, MET, MITF, MLH1, MSH2, MSH3, MSH6, MUTYH, NF1, NTHL1, PALB2, PMS2, POLD1, POLE, POT1, PTCH1, PTEN, RAD51 (more content not included)... [facility] 1 [facility] Normal [facility] Comment on above: Order Comment: Speci men Type: BLOOD SPECIMEN Ordering Facility: [facility] Address: [facility] [place] [address] Performed By: #### M ISC1 #### NON-INTERFACED REF LABS CLIA SEE SCANNED RESULTS TEST 1 Custom Cancer Panel Normal [facility] Comment on above: Order Comment: Speci men Type: BLOOD SPECIMEN Ordering Facility: [facility] Address: [address] [place] [address] Performed By: #### M ISC1 #### NON-INTERFACED REF LABS CLIA SEE SCANNED RESULTS TEST RESULTS 1 View results in Scanned Documents link when available. Normal [facility] Comment on above: Order Comment: Speci men Type: BLOOD SPECIMEN Ordering Facility: [facility] Address: [address] [place] [address] Performed By: #### M ISC1 #### NON-INTERFACED REF LABS CLIA SEE SCANNED RESULTS LAVENDER TOP TUBEon 04-04-20 23 [facility] CBC AND ELECTRONIC DIFFon Basophils (Bld) [#/Vol] 0.04 10*3/uL Normal 0.00-0.15 [facility] Comment on above: Performed By: #### L [id number] #### [facility] (DEFAULT) [address] [address] Basophils/100 WBC (Bld) 0.7 % Normal O [facility] Comment on above: Performed By: #### L [id number] #### [facility] (DEFAULT) [address] [place] [address] DIFF STATUS Electronic Differential Normal [facility] Comment on above: Performed By: #### L [id number] #### [facility] (DEFAULT) [address] [place] [address] Eosinophils (Bld) [#/Vol] 0.18 10*3/uL Normal 0.00-0.4 2 [facility] Comment on above: Performed By: #### L [id number] #### [facility] (DEFAULT) [address] [place] [address] Eosinophils/100 WBC (Bld) 3.3 % Normal [facility] Comment on above: Performed By: #### L [id number] #### [facility] (DEFAULT) [address] [address] Hematocrit (Bld) [Volume fraction] 39.7 % Normal 34.9-44.3 [facility] Comment on above: Performed By: #### L [id number] #### [facility] (DEFAULT) [address] [address] Hemoglobin (Bld) [Mass/Vol] 13.3 g/dL Normal 11.4-15.2 [facility] Comment on above: Performed By: #### L [id number] #### [facility] (DEFAULT) [address] [address] Immature Grans % 0.2 % Normal [facility] Comment on above: Performed By: #### L [id number] #### [facility] (DEFAULT) [address] [address] Immature Grans Absolute < Normal <=0.08 [facility] Comment on above: Performed By: #### L [id number] #### [facility] (DEFAULT) [address] [address] Lymphocytes (Bld) [#/Vol] 1.60 10*3/uL Normal 1.16-3.5 1 [facility] Comment on above: Performed By: #### L [id number] #### [facility] (DEFAULT) [address] [address] Lymphocytes/100 WBC (Bld) 29.0 % Normal [facility] Comment on above: Performed By: #### L [id number] #### [facility] (DEFAULT) [address] [address] MCV (RBC) [Entitic vol] 95.0 fL Normal 79.6-97.7 [facility] Comment on above: Performed By: #### L [id number] #### [facility] (DEFAULT) [address] [address] Mean Cell Hgb 31.8 pg Normal 25.9-33.9 [facility] Comment on above: Performed By: #### L [id number] #### [facility] (DEFAULT) [address] [address] Mean Cell Hgb Conc 33.5 g/dL Normal 31.4-35.9 [facility] Comment on above: Performed By: #### L [id number] #### [facility] (DEFAULT) [address] [place] [address] Monocytes (Bld) [#/Vol] 0.61 10*3/uL Normal 0.22-0.87 [facility] Comment on above: Performed By: #### L AB980 #### [facility] (DEFAULT) [address] [address] Monocytes/100 WBC (Bld) 11.1 % Normal [facility] Comment on above: Performed By: #### L AB980 #### [facility] (DEFAULT) [address] [address] Nucleated RBC 0.0 /100 WBC Normal <=0.[address] [facility] Comment on above: Performed By: #### L [id number] #### [facility] (DEFAULT) [address] [address] Platelet mean volume (Bld) [Entitic vol] 10.4 fL Normal 8.5-12.2 [facility] Comment on above: Performed By: #### L AB980 #### [facility] (DEFAULT) [address] [address] Platelets (Bld) [#/Vol] 266 10*3/uL Normal 150-393 [facility] Comment on above: Performed By: #### L AB980 #### [facility] (DEFAULT) [address] [address] RBC (Bld) [#/Vol] 4.18 10*6/uL Normal 3.91-5.04 [facility] Comment on above: Performed By: #### L [id number] #### [facility] (DEFAULT) [address] [place] [address] RBC Distribution 12.4 % Normal 10.8-14.9 [facility] Comment on above: Performed By: #### L [id number] #### [facility] (DEFAULT) [address] [place] [address] Segs + Bands Auto 55.7 % Normal [facility] Comment on above: Performed By: #### L [id number] #### [facility] (DEFAULT) [address] [place] [address] Segs + Bands,Absolute Auto 3.08 K/uL Normal 1.64-7.28 [facility] Comment on above: Performed By: #### L AB980 #### [facility] (DEFAULT) [address] [place] [address] WBC (Bld) [#/Vol] 5.52 10*3/uL Normal 3.99-11.19 [facility] Comment on above: Performed By: #### L [id number] #### [facility] (DEFAULT) [address] [place] [address] Basophils (Bld) [#/Vol] 0.04 10*3/uL 0.00 - 0.15 K/uL [facility] Basophils/100 WBC (Bld) 0.7 % [facility] Differential cell count method Nom (Bld) Electronic Differential [facility] Eosinophils (Bld) [#/Vol] 0.18 10*3/uL 0. 00 - 0.42 K/uL [facility] Eosinophils/100 WBC (Bld) 3.3 % [facility] Erythrocyte distribution width (RBC) [Ratio] 12.4 % 10.8 - 14.9 % [facility] Hematocrit (Bld) [Volume fraction] 39.7 % 34.9 - 44.3 % [facility] Hemoglobin (Bld) [Mass/Vol] 13.3 g/dL 11.4 - 15.2 g/dL [facility] Immature granulocytes (Bld) [#/Vol] K/uL NINF - 0.08 K/uL [facility] Immature granulocytes/100 WBC (Bld) 0.2 % [facility] Lymphocytes (Bld) [#/Vol] 1.60 10*3/uL 1. 16 - 3.51 K/uL [facility] Lymphocytes/100 WBC (Bld) 29.0 % [facility] MCH (RBC) [Entitic mass] 31.8 pg 25. 9 - 33.9 pg [facility] MCHC (RBC) [Mass/Vol] 33.5 g/dL 31.4 - 35.9 g/dL [facility] MCV (RBC) [Entitic vol] 95.0 fL 79.6 - 97.7 fL [facility] Monocytes (Bld) [#/Vol] 0.61 10*3/uL 0.22 - 0.87 K/uL [facility] Monocytes/100 WBC (Bld) 11.1 % [facility] Neutrophils (Bld) [#/Vol] 3.08 10*3/uL 1. 64 - 7.28 K/uL [facility] Nucleated RBC/100 WBC (Bld) [Ratio] 0.0 % [facility] Platelet mean volume (Bld) [Entitic vol] 10.4 fL 8.5 - 12.2 fL [facility] Platelets (Bld) [#/Vol] 266 10*3/uL 150 - 393 K/uL [facility] RBC (Bld) [#/Vol] 4.18 10*6/uL [facility] Segmented neutrophils/100 WBC (Bld) 55.7 % [facility] WBC (Bld) [#/Vol] 5.52 10*3/uL 3.99 - 11.19 K/uL [facility] COMPREHENSIVE METABOLIC PANE Manny 04-03-2023 Albumin [Mass/Vol] 3.9 g/dL Normal 3.5-5.0 [facility] Comment on above: Performed By: #### C MPN #### [facility] (DEFAULT) [address] [place] [address] ALP [Catalytic activity/Vol] 39 U/L Normal 32-126 [facility] Comment on above: Performed By: #### C MPN #### [facility] (DEFAULT) [address] [place] [address] [id number] ALT [Catalytic activity/Vol] 13 U/L Normal 9-48 [facility] Comment on above: Performed By: #### C MPN #### [facility] (DEFAULT) [address] [place] [address] 52431 Anion gap [Moles/Vol] 8 mmol/L Normal 7-17 [facility] Comment on above: Performed By: #### C MPN #### [facility] (DEFAULT) [address] [place] [address] 17756 AST [Catalytic activity/Vol] 18 U/L Normal 10-39 [facility] Comment on above: Performed By: #### C MPN #### [facility] (DEFAULT) [address] [place] [address] 16065 Bilirubin [Mass/Vol] 0.6 mg/dL Normal <1.5 [facility] Comment on above: Performed By: #### C MPN #### [facility] (DEFAULT) [address] [place] [address] 99076 Calcium [Mass/Vol] 8.8 mg/dL Normal 8.6-10.5 [facility] Comment on above: Performed By: #### C MPN #### [facility] (DEFAULT) [address] [place] [address] 32627 Chloride [Moles/Vol] 108 mmol/L Normal 98-108 [facility] Comment on above: Performed By: #### C MPN #### [facility] (DEFAULT) [address] [place] [address] 03076 CO2 [Moles/Vol] 27 mmol/L Normal 21-[address] [facility] Comment on above: Performed By: #### C MPN #### [facility] (DEFAULT) [address] [place] [address] 55590 Creatinine [Mass/Vol] 0.81 mg/dL Normal 0.50-1.20 [facility] Comment on above: Performed By: #### C MPN #### [facility] (DEFAULT) [address] [place] [address] 45960 eGFR, CKD-EPI, Female > Normal >=60 [facility] Comment on above: Result Comment: Repo rted eGFR is based on the CKD-EPI 2020 equation using creatinine, age, and sex. Performed By: #### C MPN #### [facility] (DEFAULT) [address] [place] [address] 92558 Glucose [Mass/Vol] 97 mg/dL Normal 70-99 [facility] Comment on above: Performed By: #### C MPN #### [facility] (DEFAULT) [address] [place] [address] 20901 Osmolality [Osmolality] 291 mosm/kg Normal 278-305 [facility] Comment on above: Performed By: #### C MPN #### [facility] (DEFAULT) [address] [place] [address] 34932 Potassium [Moles/Vol] 4.3 mmol/L Normal 3.5-5.0 [facility] Comment on above: Performed By: #### C MPN #### [facility] (DEFAULT) [address] [address] Protein [Mass/Vol] 6.5 g/dL Normal 6.4-8.3 [facility] Comment on above: Performed By: #### C MPN #### [facility] (DEFAULT) [address] [place] [address] 43287 Sodium [Moles/Vol] 139 mmol/L Normal 135-145 [facility] Comment on above: Performed By: #### C MPN #### [facility] (DEFAULT) [address] [place] [address] Urea nitrogen [Mass/Vol] 11 mg/dL Normal 7-25 [facility] Comment on above: Performed By: #### C MPN #### [facility] (DEFAULT) [address] [place] [address] Urea nitrogen/Creatinine [Mass ratio] 14 mg/mg Normal [facility] Comment on above: Performed By: #### C MPN #### [facility] (DEFAULT) [address] [place] [address] Albumin [Mass/Vol] 3.9 g/dL 3.5 - 5.0 g/dL [facility] ALP [Catalytic activity/Vol] 39 U/L 32 - 126 U/L [facility] ALT [Catalytic activity/Vol] 13 U/L 9 - 48 U/L [facility] Anion gap [Moles/Vol] 8 mmol/L 7 - 17 mmol/L [facility] AST [Catalytic activity/Vol] 18 U/L 10 - 39 U/L [facility] Bilirubin [Mass/Vol] 0.6 mg/dL NINF - 1.5 mg/dL [facility] Calcium [Mass/Vol] 8.8 mg/dL 8.6 - 10. 5 mg/dL [facility] Chloride [Moles/Vol] 108 mmol/L 98 - 10 8 mmol/L [facility] CO2 [Moles/Vol] 27 mmol/L 21 - 31 mmol/L [facility] Creatinine [Mass/Vol] 0.81 mg/dL 0.50 - 1.20 mg/dL [facility] GFR/1.73 sq M.predicted CKD-EPI (S/P/Bld) [Vol rate/Area] - PINF [facility] Comment on above: Reported eGFR is bas ed on the CKD-EPI 2020 equation using creatinine, age, and sex. Glucose [Mass/Vol] 97 mg/dL 70 - 99 mg/dL [facility] Osmolality Calc [Osmolality] 291 [facility] Potassium [Moles/Vol] 4.3 mmol/L 3.5 - 5.0 mmol/L [facility] Protein [Mass/Vol] 6.5 g/dL 6.4 - 8.3 g/dL [facility] Sodium [Moles/Vol] 139 mmol/L 135 - 145 mmol/L [facility] Urea nitrogen [Mass/Vol] 11 mg/dL 7 - 25 mg/dL [facility] Urea nitrogen/Creatinine [Mass ratio] 14 mg/mg [facility] LT BLUE TOP TUBEon 04-03- [facility] BASIC METABOLIC PANELon 03-18 Anion gap [Moles/Vol] 9 mmol/L Normal -17 [facility] Comment on above: Performed By: #### C 7C #### [facility] (DEFAULT) [address] [place] [address] 04114 Calcium [Mass/Vol] 8.7 mg/dL Normal 8.6-10.5 [facility] Comment on above: Performed By: #### C 7C #### [facility] (DEFAULT) [address] [place] [address] 63188 Chloride [Moles/Vol] 106 mmol/L Normal 98-108 [facility] Comment on above: Performed By: #### C 7C #### [facility] (DEFAULT) [address] [place] [address] 98045 CO2 [Moles/Vol] 26 mmol/L Normal 21-[address] [facility] Comment on above: Performed By: #### C 7C #### [facility] (DEFAULT) [address] [place] [address] 72354 Creatinine [Mass/Vol] 0.82 mg/dL Normal 0.50-1.20 [facility] Comment on above: Performed By: #### C 7C #### [facility] (DEFAULT) [address] [place] [address] 00635 eGFR, CKD-EPI, Female > Normal >=60 [facility] Comment on above: Result Comment: Repo rted eGFR is based on the CKD-EPI 2020 equation using creatinine, age, and sex. Performed By: #### C 7C #### [facility] (DEFAULT) [address] [place] [address] 05045 Glucose [Mass/Vol] 93 mg/dL Normal 70-99 [facility] Comment on above: Performed By: #### C 7C #### [facility] (DEFAULT) [address] [place] [address] 14854 Osmolality [Osmolality] 285 mosm/kg Normal 278-305 [facility] Comment on above: Performed By: #### C 7C #### [facility] (DEFAULT) [address] [place] [address] 34480 Potassium [Moles/Vol] 3.5 mmol/L Normal 3.5-5.0 [facility] Comment on above: Performed By: #### C 7C #### [facility] (DEFAULT) [address] [place] [address] 72864 Sodium [Moles/Vol] 137 mmol/L Normal 135-145 [facility] Comment on above: Performed By: #### C 7C #### [facility] (DEFAULT) [address] [place] [address] 61784 Urea nitrogen [Mass/Vol] 11 mg/dL Normal 7-25 [facility] Comment on above: Performed By: #### C 7C #### [facility] (DEFAULT) [address] [place] [address] 24880 Urea nitrogen/Creatinine [Mass ratio] 13 mg/mg Normal [facility] Comment on above: Performed By: #### C 7C #### [facility] (DEFAULT) [address] [place] [address] 53898 Anion gap [Moles/Vol] 9 mmol/L 7 - 17 mmol/L [facility] Calcium [Mass/Vol] 8.7 mg/dL 8.6 - 10. 5 mg/dL [facility] Chloride [Moles/Vol] 106 mmol/L 98 - 10 8 mmol/L [facility] CO2 [Moles/Vol] 26 mmol/L 21 - 31 mmol/L [facility] Creatinine [Mass/Vol] 0.82 mg/dL 0.50 - 1.20 mg/dL [facility] GFR/1.73 sq M.predicted CKD-EPI (S/P/Bld) [Vol rate/Area] - PINF [facility] Comment on above: Reported eGFR is bas ed on the CKD-EPI 2020 equation using creatinine, age, and sex. Glucose [Mass/Vol] 93 mg/dL 70 - 99 mg/dL [facility] Osmolality Calc [Osmolality] 285 [facility] Potassium [Moles/Vol] 3.5 mmol/L 3.5 - 5.0 mmol/L [facility] Sodium [Moles/Vol] 137 mmol/L 135 - 145 mmol/L [facility] Urea nitrogen [Mass/Vol] 11 mg/dL 7 - 25 mg/dL [facility] Urea nitrogen/Creatinine [Mass ratio] 13 mg/mg [facility] C REACTIVE PROTEINon 023 CRP High sensitivity method [Mass/Vol] 2.96 mg/L NINF - 10.00 mg/L [facility] Interpretation and review of laboratory results Normal [facility] CRP [Mass/Vol] 2.96 mg/L Normal <10.00 [facility] Comment on above: Performed By: #### C RP #### [facility] (DEFAULT) [address] [place] [address] 17867 CBC AND ELECTRONIC DIFFon Basophils (Bld) [#/Vol] 0.04 10*3/uL Normal 0.00-0.15 [facility] Comment on above: Performed By: #### L AB980, ESR #### [facility] (DEFAULT) [address] [place] [address] 02590 Basophils/100 WBC (Bld) 0.6 % Normal [facility] Comment on above: Performed By: #### L AB980, ESR #### [facility] (DEFAULT) [address] [place] [address] 38079 DIFF STATUS Electronic Differential Normal [facility] Comment on above: Performed By: #### L AB980, ESR #### [facility] (DEFAULT) [address] [place] [address] 87843 Eosinophils (Bld) [#/Vol] 0.11 10*3/uL Normal 0.00-0.4 2 [facility] Comment on above: Performed By: #### L AB980, ESR #### [facility] (DEFAULT) [address] [place] [address] 28786 Eosinophils/100 WBC (Bld) 1.6 % Normal [facility] Comment on above: Performed By: #### L AB980, ESR #### [facility] (DEFAULT) [address] [place] [address] 78116 Hematocrit (Bld) [Volume fraction] 38.3 % Normal 34.9-44.3 [facility] Comment on above: Performed By: #### L AB980, ESR #### [facility] (DEFAULT) [address] [place] [address] 64700 Hemoglobin (Bld) [Mass/Vol] 12.9 g/dL Normal 11.4-15.2 [facility] Comment on above: Performed By: #### L AB980, ESR #### [facility] (DEFAULT) [address] [place] [address] 87896 Immature Grans % 0.1 % Normal [facility] Comment on above: Performed By: #### L AB980, ESR #### [facility] (DEFAULT) [address] [place] [address] 85330 Immature Grans Absolute < Normal <=0.08 [facility] Comment on above: Performed By: #### L AB980, ESR #### [facility] (DEFAULT) [address] [place] [address] 46544 Lymphocytes (Bld) [#/Vol] 1.51 10*3/uL Normal 1.16-3.5 1 [facility] Comment on above: Performed By: #### L AB980, ESR #### [facility] (DEFAULT) [address] [place] [address] 33875 Lymphocytes/100 WBC (Bld) 21.7 % Normal [facility] Comment on above: Performed By: #### L AB980, ESR #### [facility] (DEFAULT) [address] [place] [address] 61786 MCV (RBC) [Entitic vol] 93.9 fL Normal 79.6-97.7 [facility] Comment on above: Performed By: #### L AB980, ESR #### [facility] (DEFAULT) [address] [address] Mean Cell Hgb 31.6 pg Normal 25.9-33.9 [facility] Comment on above: Performed By: #### L AB980, ESR #### [facility] (DEFAULT) [address] [place] [address] 33478 Mean Cell Hgb Conc 33.7 g/dL Normal 31.4-35.9 [facility] Comment on above: Performed By: #### L AB980, ESR #### [facility] (DEFAULT) [address] [place] [address] 28595 Monocytes (Bld) [#/Vol] 0.53 10*3/uL Normal 0.22-0.87 [facility] Comment on above: Performed By: #### L AB980, ESR #### [facility] (DEFAULT) [address] [address] Monocytes/100 WBC (Bld) 7.6 % Normal [facility] Comment on above: Performed By: #### L AB980, ESR #### [facility] (DEFAULT) [address] [place] [address] 10915 Nucleated RBC 0.0 /100 WBC Normal <=0.[address] [facility] Comment on above: Performed By: #### L AB980, ESR #### [facility] (DEFAULT) [address] [place] [address] 12907 Platelet mean volume (Bld) [Entitic vol] 10.5 fL Normal 8.5-12.2 [facility] Comment on above: Performed By: #### L AB980, ESR #### [facility] (DEFAULT) [address] [place] [address] 04331 Platelets (Bld) [#/Vol] 284 10*3/uL Normal 150-393 [facility] Comment on above: Performed By: #### L AB980, ESR #### [facility] (DEFAULT) [address] [place] [address] 65628 RBC (Bld) [#/Vol] 4.08 10*6/uL Normal 3.91-5.04 [facility] Comment on above: Performed By: #### L AB980, ESR #### [facility] (DEFAULT) [address] [place] [address] 89151 RBC Distribution 12.2 % Normal 10.8-14.9 [facility] Comment on above: Performed By: #### L AB980, ESR #### [facility] (DEFAULT) [address] [place] [address] 07539 Segs + Bands Auto 68.4 % Normal [facility] Comment on above: Performed By: #### L AB980, ESR #### [facility] (DEFAULT) [address] [place] [address] 79731 Segs + Bands,Absolute Auto 4.76 K/uL Normal 1.64-7.28 [facility] Comment on above: Performed By: #### L AB980, ESR #### [facility] (DEFAULT) [address] [place] [address] 66812 WBC (Bld) [#/Vol] 6.96 10*3/uL Normal 3.99-11.19 [facility] Comment on above: Performed By: #### L AB980, ESR #### [facility] (DEFAULT) [address] [place] [address] Basophils (Bld) [#/Vol] 0.04 10*3/uL 0.00 - 0.15 K/uL [facility] Basophils/100 WBC (Bld) 0.6 % [facility] Differential cell count method Nom (Bld) Electronic Differential [facility] Eosinophils (Bld) [#/Vol] 0.11 10*3/uL 0. 00 - 0.42 K/uL [facility] Eosinophils/100 WBC (Bld) 1.6 % [facility] Erythrocyte distribution width (RBC) [Ratio] 12.2 % 10.8 - 14.9 % [facility] Hematocrit (Bld) [Volume fraction] 38.3 % 34.9 - 44.3 % [facility] Hemoglobin (Bld) [Mass/Vol] 12.9 g/dL 11.4 - 15.2 g/dL [facility] Immature granulocytes (Bld) [#/Vol] K/uL NINF - 0.08 K/uL [facility] Immature granulocytes/100 WBC (Bld) 0.1 % [facility] Lymphocytes (Bld) [#/Vol] 1.51 10*3/uL 1. 16 - 3.51 K/uL [facility] Lymphocytes/100 WBC (Bld) 21.7 % [facility] MCH (RBC) [Entitic mass] 31.6 pg 25. 9 - 33.9 pg [facility] MCHC (RBC) [Mass/Vol] 33.7 g/dL 31.4 - 35.9 g/dL [facility] MCV (RBC) [Entitic vol] 93.9 fL 79.6 - 97.7 fL [facility] Monocytes (Bld) [#/Vol] 0.53 10*3/uL 0.22 - 0.87 K/uL [facility] Monocytes/100 WBC (Bld) 7.6 % [facility] Neutrophils (Bld) [#/Vol] 4.76 10*3/uL 1. 64 - 7.28 K/uL [facility] Nucleated RBC/100 WBC (Bld) [Ratio] 0.0 % NINF [facility] Platelet mean volume (Bld) [Entitic vol] 10.5 fL 8.5 - 12.2 fL [facility] Platelets (Bld) [#/Vol] 284 10*3/uL 150 - 393 K/uL [facility] RBC (Bld) [#/Vol] 4.08 10*6/uL [facility] Segmented neutrophils/100 WBC (Bld) 68.4 % [facility] WBC (Bld) [#/Vol] 6.96 10*3/uL 3.99 - 11.19 K/uL [facility] ED US SOFT TISSUE EXTREMITYo n 04-02-2023 ED US SOFT TISSUE EXTREMITY Soft Tissue: ORDER REQUEST: Billing: Billable exam (EXTREMITY CPT Code = 63877-53) ([id number]) Exam Information: A focused (limited) ultrasound of soft tissue was performed to evaluate for cellulitis, abscess, or foreign body. Findings & Interpretation: Exam of the above structures revealed the following findings:: Cellulitis Confirmatory study: What confirmatory study was done?: Xray Electronically signed by Mary Sinha on Sunday, April 02, 2023 at 1:08 PM I performed the exam or was present with resident during the exam. I discussed the case with the resident about the findings and plan as documented above in resident's note. Normal [facility] MR Foot - right WO and W con trast Hussein 04-02-2023 IMPRESSION: 1. There is extensive cellulitis in the dorsal aspect of the foot surrounding a more central area of diminished enhancement. There is likely corresponds to cellulitis surrounding in the area of ischemia or developing phlegmonous changes. No obvious foreign body is detected. 2. There is myositis primarily involving the muscles surrounding the second and third metatarsal shafts. 3. There is tenosynovitis of the extensor digitorum tendons. 4. No gross evidence of osteomyelitis. OLOGY EXAM: MRI FOOT RIGHT WITH AND WITHOUT CONTRAST, 04/02/2023 17:05 PM CLINICAL INDICATIONS: evaluating for retained FB to right foot dorsum; RELEVANT CLINICAL HISTORY: COMPARISON: Right foot radiographs dated April 02, 2023 TECHNIQUE: Multiplanar multisequence imaging of the right foot was performed prior to and after the intravenous administration of Gadolinium contrast. The area of interest was identified with markers. FINDINGS: Soft Tissue and muscles: There is diffuse soft swelling the dorsum of the foot. There is marked enhancement of the edematous subcutaneous fat at the administration of intravenous gadolinium compatible cellulitis. Additionally, there are areas within the dorsal soft tissues that demonstrate poor enhancement indicative of phlegmonous changes or areas of ischemia. These are most pronounced in the soft tissues dorsal to the second through fourth metatarsal shafts. There is no drainable fluid collection identified. There is interstitial edema in the muscles surrounding the second metatarsal shafts and to lesser extent in the medial muscles surrounding the third metatarsal shaft. There is tenosynovitis of the extensor digitorum tendons. Bone: Overall, bone marrow signal intensity is age appropriate. No pathologic areas of edema or enhancement. Joint: The tarsometatarsal and metatarsophalangeal joints appear in anatomic alignment. The interphalangeal joints appear anatomically aligned. No erosions. RADIOLOGY Bethel Kay MD - 04/02/2023 EXAM: MRI FOOT RIGHT WITH AND WITHOUT CONTRAST, 04/02/2023 17:05 PM CLINICAL INDICATIONS: evaluating for retained FB to right foot dorsum; RELEVANT CLINICAL HISTORY: COMPARISON: Right foot radiographs dated April 02, 2023 TECHNIQUE: Multiplanar multisequence imaging of the right foot was performed prior to and after the intravenous administration of Gadolinium contrast. The area of interest was identified with markers. FINDINGS: Soft Tissue and muscles: There is diffuse soft swelling the dorsum of the foot. There is marked enhancement of the edematous subcutaneous fat at the administration of intravenous gadolinium compatible cellulitis. Additionally, there are areas within the dorsal soft tissues that demonstrate poor enhancement indicative of phlegmonous changes or areas of ischemia. These are most pronounced in the soft tissues dorsal to the second through fourth metatarsal shafts. There is no drainable fluid collection identified. There is interstitial edema in the muscles surrounding the second metatarsal shafts and to lesser extent in the medial muscles surrounding the third metatarsal shaft. There is tenosynovitis of the extensor digitorum tendons. Bone: Overall, bone marrow signal intensity is age appropriate. No pathologic areas of edema or enhancement. Joint: The tarsometatarsal and metatarsophalangeal joints appear in anatomic alignment. The interphalangeal joints appear anatomically aligned. No erosions. IMPRESSION IMPRESSION: 1. There is extensive cellulitis in the dorsal aspect of the foot surrounding a more central area of diminished enhancement. There is likely corresponds to cellulitis surrounding in the area of ischemia or developing phlegmonous changes. No obvious foreign body is detected. 2. There is myositis primarily involving the muscles surrounding the second and third metatarsal shafts. 3. There is tenosynovitis of the extensor digitorum tendons. 4. No gross evidence of osteomyelitis. [facility] Radiology Study observation (narrative) [facility] MR Foot - right WO and W con trast IVOrdered By: Bethel Kay on 04-02-2023 [facility] Work Phone: MRI FOOT RIGHT WITH AND WITH OUT CONTRASTon 04-02-2023 MRI FOOT RIGHT WITH AND WITHOUT CONTRAST EXAM: MRI FOOT RIGHT WITH AND WITHOUT CONTRAST, 04/02/2023 17:05 PM CLINICAL INDICATIONS: evaluating for retained FB to right foot dorsum; RELEVANT CLINICAL HISTORY: COMPARISON: Right foot radiographs dated April 02, 2023 TECHNIQUE: Multiplanar multisequence imaging of the right foot was performed prior to and after the intravenous administration of Gadolinium contrast. The area of interest was identified with markers. FINDINGS: Soft Tissue and muscles: There is diffuse soft swelling the dorsum of the foot. There is marked enhancement of the edematous subcutaneous fat at the administration of intravenous gadolinium compatible cellulitis. Additionally, there are areas within the dorsal soft tissues that demonstrate poor enhancement indicative of phlegmonous changes or areas of ischemia. These are most pronounced in the soft tissues dorsal to the second through fourth metatarsal shafts. There is no drainable fluid collection identified. There is interstitial edema in the muscles surrounding the second metatarsal shafts and to lesser extent in the medial muscles surrounding the third metatarsal shaft. There is tenosynovitis of the extensor digitorum tendons. Bone: Overall, bone marrow signal intensity is age appropriate. No pathologic areas of edema or enhancement. Joint: The tarsometatarsal and metatarsophalangeal joints appear in anatomic alignment. The interphalangeal joints appear anatomically aligned. No erosions. IMPRESSION: 1. There is extensive cellulitis in the dorsal aspect of the foot surrounding a more central area of diminished enhancement. There is likely corresponds to cellulitis surrounding in the area of ischemia or developing phlegmonous changes. No obvious foreign body is detected. 2. There is myositis primarily involving the muscles surrounding the second and third metatarsal shafts. 3. There is tenosynovitis of the extensor digitorum tendons. 4. No gross evidence of osteomyelitis. Normal [facility] No Panel Informationon 04-02 [facility] SEDIMENTATION RATE, AUTOMATE Don 04-02-2023 ESR (Bld) [Velocity] 9 mm/h [facility] Interpretation and review of laboratory results Normal [facility] ESR Westergren 9 mm/hr Normal <20 [facility] Comment on above: Performed By: #### L [id number], ESR #### [facility] (DEFAULT) [address] [place] [address] Extremityon 04-02-2023 Soft Tissue: ORDER REQUEST: Billing: Billable exam (EXTREMITY CPT Code = 11890-34) ([id number]) Exam Information: A focused (limited) ultrasound of soft tissue was performed to evaluate for cellulitis, abscess, or foreign body. Findings & Interpretation: Exam of the above structures revealed the following findings:: Cellulitis Confirmatory study: What confirmatory study was done?: Xray Electronically signed by Mary Sinha on Sunday, April 02, 2023 at 1:08 PM I performed the exam or was present with resident during the exam. I discussed the case with the resident about the findings and plan as documented above in resident's note. RADIOLOGY Mary Sinha, DO - 04/02/2023 Soft Tissue: ORDER REQUEST: Billing: Billable exam (EXTREMITY CPT Code = 01150-93) ([id number]) Exam Information: A focused (limited) ultrasound of soft tissue was performed to evaluate for cellulitis, abscess, or foreign body. Findings & Interpretation: Exam of the above structures revealed the following findings:: Cellulitis Confirmatory study: What confirmatory study was done?: Xray Electronically signed by Mary Sinha on Sunday, April 02, 2023 at 1:08 PM I performed the exam or was present with resident during the exam. I discussed the case with the resident about the findings and plan as documented above in resident's note. [facility] Radiology Study observation (narrative) [facility] XR FOOT RIGHT 3 VIEWSon 03-18 XR FOOT RIGHT 3 VIEWS EXAM: XR FOOT RIGH T 3 VIEWS, 04/02/2023 13:31 PM COMPARISON: No prior studies available for comparison. CLINICAL INDICATIONS: stingray nahum RELEVANT CLINICAL HISTORY: FINDINGS: 3 nonweightbearing images obtained. Soft Tissue: Dorsal soft tissue tissue swelling noted at the forefoot. No radiopaque foreign body is identified. Bone: No acute osseous abnormality is identified. Joint: No evidence of dislocation. The tarsal-metatarsal joints appear grossly intact. IMPRESSION: Soft tissue swelling. No radiopaque foreign body or acute osseous abnormality. Normal [facility] XR Foot - right 3 Viewson IMPRESSION: Soft tissue swelling. No radiopaque foreign body or acute osseous abnormality. OLOGY EXAM: XR FOOT RIGHT 3 VIEWS, 04/02/2023 13:31 PM COMPARISON: No prior studies available for comparison. CLINICAL INDICATIONS: stingray nahum RELEVANT CLINICAL HISTORY: FINDINGS: 3 nonweightbearing images obtained. Soft Tissue: Dorsal soft tissue tissue swelling noted at the forefoot. No radiopaque foreign body is identified. Bone: No acute osseous abnormality is identified. Joint: No evidence of dislocation. The tarsal-metatarsal joints appear grossly intact. RADIOLOGY Pantera Torres DO - 04/02/2023 EXAM: XR FOOT RIGHT 3 VIEWS, 04/02/2023 13:31 PM COMPARISON: No prior studies available for comparison. CLINICAL INDICATIONS: stingray nahum RELEVANT CLINICAL HISTORY: FINDINGS: 3 nonweightbearing images obtained. Soft Tissue: Dorsal soft tissue tissue swelling noted at the forefoot. No radiopaque foreign body is identified. Bone: No acute osseous abnormality is identified. Joint: No evidence of dislocation. The tarsal-metatarsal joints appear grossly intact. IMPRESSION IMPRESSION: Soft tissue swelling. No radiopaque foreign body or acute osseous abnormality. [facility] Radiology Study observation (narrative) [facility] - right 3 ViewsOrder ed By: Pantera Torres on 04-02-2023 [facility] Work Phone: Routine wound cultureOrdered By: Dr. Hernandez on 03-31-2023 Bacteria identified Cx Nom (Wound) No growth aerobically. [facility] Gram stain for investigation of transfusion reactionOrdered By: Dr. Hernandez on 03-30-2023 Microscopic observation Gram stain Nom (Unsp spec) [facility] ZOLTAN SCREENINGon 01-15-2023 [facility] Laboratory - Chemistry and C hemistry - challengeOrdered By: Dr. Matthews on 10-21-2022 Free T4 [Mass/Vol] 1.13 ng/dL 0.76-1.46 [facility] No Panel InformationOrdered By: Dr. Matthews on 10-21-2022 Thyroid Stimulating Hormone (TSH) 1.60 uIU/mL 0.358-3.74 [facility] Total Triiodothyronine 1.15 ng/mL 0.6-1.81 [facility] Serum or plasma thyroperoxid ase antibody assay (units/volume)Ordered By: Dr. Matthews on 10-21-2022 TPO Ab Qn 14 [IU]/mL 0-34 [facility] Comment on above: Performed at: [address] [id number] Director: Rosas Molina PhD, Phone: [phone] No Panel Informationon 01-13 [facility] Vital Signs Date Time Vital Sign Value Performing Clinician Patience wilson 10-26-2024 14:26-0500 Body mass index (BMI) [Ratio] 24.3 kg/m2 Regine Peña MD Work Phone: [facility] 10-26-2024 14:26-0500 Body weight 69.85 kg Regine Peña MD Work Phone: [facility] 10-26-2024 14:26-0500 Diastolic blood pressure 74 mm[Hg] Regine Peña MD Work Phone: [facility] 10-26-2024 14:26-0500 Systolic blood pressure 112 mm[Hg] Regine Peña MD Work Phone: [facility] 09-28-2024 14:12-0500 Body mass index (BMI) [Ratio] 24.14 kg/m2 Suman Moreira SLOT FLOOR ATTENDANT.RECEPTIONIST/TELEPHONE OPERATOR Work Phone: [facility] 09-28-2024 14:120500 Body weight 69.4 kg Suman Haury SLOT FLOOR ATTENDANT.RECEPTIONIST/TELEPHONE OPERATOR Work Phone: [facility] 09-28-2024 14:12-0500 Diastolic blood pressure 70 mm[Hg] Suman Haury SLOT FLOOR ATTENDANT.RECEPTIONIST/TELEPHONE OPERATOR Work Phone: [facility] 09-28-2024 14:12-0500 Systolic blood pressure 120 mm[Hg] Suman Haury SLOT FLOOR ATTENDANT.RECEPTIONIST/TELEPHONE OPERATOR Work Phone: [facility] 06-01-2023 14:21-0400 Body height 169.5 cm Regine Peña MD Work Phone: [facility] 06-01-2023 14:0400 Body weight 67.59 kg Regine Peña MD Work Phone: [facility] 06-01-2023 14:21-0400 Diastolic blood pressure 64 mm[Hg] Regine Peña MD Work Phone: [facility] 06-01-2023 14:21-0400 Systolic blood pressure 108 mm[Hg] Regine Peña MD Work Phone: [facility] 04-04-2023 09:10-0400 Body temperature 98.2 [degF] Mary Sinha DO Work Phone: [facility] 04-04-2023 09:10-0400 Diastolic blood pressure 71 mm[Hg] Mary Sinha DO Work Phone: [facility] 04-04-2023 09:10-0400 Heart rate 76 /min Mary Sinha DO Work Phone: [facility] 04-04-2023 09:10-0400 Respiratory rate 16 /min Mary Sinha DO Work Phone: [phone] 04-04-2023 09:10-0400 SaO2% (BldA) [Mass fraction] 99 % Mary Sinha DO Work Phone: [facility] 04-04-2023 09:10-0400 Systolic blood pressure 114 mm[Hg] Mary Sinha DO Work Phone: [facility] 04-02-2023 19:33-0400 Body mass index (BMI) [Ratio] 24.16 kg/m2 Mary Sinha DO Work Phone: [facility] 04-02-2023 19:33-0400 Body weight 67.9 kg Mary Sinha DO Work Phone: [facility] 04-02-2023 12:03-0400 Body height 167.6 cm Mary Sinha DO Work Phone: [facility] 09-09-2022 08:02-0500 Body height 167.6 cm Mere Grier MD Work Phone: [facility] 09-09-2022 08:02-0500 Body weight 66.22 kg Mere Grier MD Work Phone: [facility] 09-09-2022 08:02-0500 Diastolic blood pressure 56 mm[Hg] Mere Grier MD Work Phone: [facility] 09-09-2022 08:02-0500 Heart rate 75 /min Mere Grier MD Work Phone: [facility] 09-09-2022 08:02-0500 Respiratory rate 12 /min Mere Grier MD Work Phone: [facility] 09-09-2022 08:02-0500 SaO2% (BldA) [Mass fraction] 100 % Mere Grier MD Work Phone: [facility] 09-09-2022 08:02-0500 Systolic blood pressure 100 mm[Hg] Mere Grier MD Work Phone: [facility] Encounters Encounter Date Encounter Type Care Provider Facility Start: 06-12-2025 End: 06-12-[address] Ashu Richard MD Work Phone: -[facility] Start: 06-12-2025 End: 06-12-[address] Ashu Richard MD -[facility] Start: 06-12-2025 End: 06-12-2025 ambulatory Ashu Richard Facility:[facility] Start: 05-17-2025 End: 05-17-[address] Ashu Richard MD Work Phone: [facility] Start: 05-17-2025 End: 05-17-[address] Ashu Richard MD -[facility] Start: 05-16-2025 End: 05-17-[address] Ashu Richard MD Work Phone: [facility] Start: 05-16-2025 End: 05-16-2025 Patient encounter procedure Hamlet LOPEZ -[facility] Start: 05-16-2025 End: 05-16-2025 ambulatory Ashu Richard Facility:[facility] Start: 11-13-2024 ambulatory UNKNOWN PROVIDER Facili ty:[facility] Start: 11-13-2024 End: 11-13-2024 Subsequent hospital visit by physician Screen/Diagnostic Mammo [facility] Work Phone: Mammography Comment on above: Breast pain [N64.4] Start: 10-26-2024 End: 10-26-2024 ambulatory REGINE PEÑA Facility:[facility] Start: 10-26-2024 End: 10-26-2024 Patient encounter procedure Regine Peña MD Work Phone: OB/Gynecology Comment on above: Encounter for gyneco logical examination (general) (routine) without abnormal findings (Primary Dx); Screening for cervical cancer; Encounter for screening for human papillomavirus (HPV); Encounter for screening mammogram for breast cancer Start: 10-26-2024 End: 10-26-2024 Patient encounter status Regine Peña MD Work Phone: [facility] Start: 10-02-2024 End: 10-02-2024 [facility] Start: 09-28-2024 End: 09-28-2024 ambulatory SUMAN MOREIRA Facility:[facility] Start: 09-28-2024 End: 09-28-2024 Patient encounter procedure Suman Moreira SLOT FLOOR ATTENDANT.RECEPTIONIST/TELEPHONE OPERATOR Work Phone: OB/Gynecology Comment on above: Breast pain (Primary Dx); Mass of upper outer quadrant of left breast Start: 02-15-2024 End: 02-15-2024 ambulatory [facility] Work Phone: Start: 02-15-2024 End: 02-15-2024 Patient encounter procedure [facility] Start: 01-22-2024 End: 01-22-2024 ambulatory REGINE PEÑA Facility:[facility] Start: 01-22-2024 End: 01-22-2024 Subsequent hospital visit by physician Diagnostic Mammo [facility] Comment on above: Abnormal mammogram [ R92.8] Start: 01-20-2024 Documentation procedure Mammog dahlia Coordinator [facility] Start: 01-20-2024 Letter encounter Mammography Coordinator [facility] Department Start: 01-20-2024 Orders Only Regine mosqueda MD Work Phone: OB/Gynecology Comment on above: Abnormal mammogram ( Primary Dx) Mammogram Result Que stion Mammogram Result Yoni sonia Back Start: 01-19-2024 End: 01-19-2024 ambulatory REGINE PEÑA Facility:[facility] Start: 01-19-2024 End: 01-19-2024 Subsequent hospital visit by physician Screen M[facility] Comment on above: Encounter for screen ing mammogram for breast cancer [Z12.31] Start: 07-30-2023 Telephone encounter Homa Cartagena golden [facility] Work Phone: [facility] Comment on above: Results (Genetic buffy ting negative ) Start: 07-16-2023 End: 07-17-2023 ambulatory [facility] Facility[facility] Start: 07-16-2023 End: 07-16-2023 Patient encounter procedure Homa Ladarius [facility] Work Phone: [facility] Comment on above: Family history of ma lignant neoplasm of ovary (Primary Dx); Family history of malignant neoplasm of breast Start: 06-01-2023 End: 06-01-2023 Patient encounter procedure Regine Peña MD Work Phone: OB/Gynecology Comment on above: Encounter for gyneco logical examination (general) (routine) without abnormal findings (Primary Dx); Encounter for screening mammogram for breast cancer; Family history of malignant neoplasm of breast Start: 06-01-2023 End: 06-01-2023 Patient encounter status Regine Peña MD Work Phone: [facility] Start: 04-08-2023 ambulatory SELF SELF Facility:[facility] Start: 04-02-2023 End: 04-04-2023 ambulatory PODIATRY CONSULT Facility:[facility] Start: 04-02-2023 End: 04-04-2023 Emergency department patient visit Mary Sinha DO Work Phone: [facility] Start: 03-29-2023 End: 03-29-2023 ambulatory [facility] Work Phone: Start: 03-29-2023 End: 03-29-2023 Patient encounter procedure [facility] Start: 01-18-2023 Documentation procedure Mammog dahlia Coordinator [facility] Start: 01-18-2023 Letter encounter Mammography Coordinator [facility] Department Start: 01-15-2023 End: 01-15-2023 Subsequent hospital visit by physician Screen [facility] Comment on above: Encounter for screen ing mammogram for breast cancer [Z12.31] Start: 10-21-2022 End: 10-21-2022 ambulatory [facility] Work Phone: Start: 10-21-2022 End: 10-21-2022 Patient encounter procedure [facility] [place] Start: 09-15-2022 Telephone encounter Mere fernandes MD Work Phone: [facility] [place] Comment on above: Results Start: 09-09-2022 End: 09-09-2022 Patient encounter procedure Mere Grier MD Work Phone: [facility] [place] Comment on above: Annual physical exam (Primary Dx); Blood per rectum; Screening for HIV (human immunodeficiency virus); Special screening examination for viral disease Start: 01-13-2022 End: 01-13-2022 Subsequent hospital visit by physician [facility] Work Phone: Radiology Comment on above: Breast pain [N64.4] Procedures Date Procedure Procedure Detail Performing Clinician Start: 06-12-2025 X-ray of chest, PA and lateral views Dr. Ashu Richard MD Work Phone: Start: 06-12-[address] Ashu Richard MD Work Phone: Comment on above: *Additional results available. Contact l aboratory/see report* Negative <1:80 Borderline 1:80 Positive >1:80ICAP nomenclature: AC-0For more information about Hep-2 cell patterns useANApatterns.org, the official website for theInternational Consensus on Antinuclear Antibody (ANNALISA)Patterns (ICAP).Performed at: [address] [id number] Director: Rosas Molina PhD, Phone: [phone] Start: 06-12-2025 Antibody to centromere measurement Dr. Joycelyn Richard MD Work Phone: Comment on above: Previous reported result: TNP AIEdited b y: INFCE on 06/15/25:1408 AMENDED REPORT 06/15/25 1408 ANTI-CENT B previously reported as: Test not performed Start: 06-12-2025 Antibody to extractable nuclear antigen measurement Dr. Ashu Richard MD Work Phone: Comment on above: Previous reported result: TNP AIEdited b y: INFCE on 06/15/25:1408 AMENDED REPORT 06/15/25 1408 RICHARD Ab previously reported as: Test not performed Start: 06-12-2025 Antibody to MARGARET-[address] Ashu brown MD Work Phone: Comment on above: Previous reported result: TNP AIEdited b y: INFCE on 06/15/25:1408 AMENDED REPORT 06/15/25 1408 ANTI-MARGARET previously reported as: Test not performed Start: 06-12-2025 Antibody to lupus La protein measurement Dr. Ashu Richard MD Work Phone: Start: 06-12-2025 Antibody to SS-A measurement Dr. Ashu brown MD Work Phone: Start: 06-12-[address] Ashu Richard MD Work Phone: Comment on above: Previous reported result: TNP AIEdited b y: INFCE on 06/15/25:1408 AMENDED REPORT 06/15/25 1408 ANTICHROMATIN previously reported as: Test not performed Start: 06-12-2025 Electrophoresis: [id number] Dr. David Richard MD Work Phone: Start: 06-12-2025 Electrophoresis: [id number] Dr. David Richard MD Work Phone: Start: 06-12-2025 Electrophoresis: gamma globulin Dr. Ashu Richard MD Work Phone: Start: 06-12-2025 Measurement of ribosomal P protein antibody Dr. Ashu Richard MD Work Phone: Start: 06-12-[address] Ashu Richard MD Work Phone: Comment on above: Test Ordered: [id number] Tick-borne Disease Ab ProfileTest(s) [id number] microti IgGwas developed and its performance characteristicsdetermined by [facility]. It has not been cleared or approvedby the Food and Drug Administration.Lyme Total Antibody HAWA Negative Reference Range: NegativeLyme antibodies not detected. Reflex testing is notindicated.No laboratory evidence of infection with B. burgdorferi(Lyme disease). Negative results may occur in patientsrecently infected (less than or equal to 14 days) with B.burgdorferi. If recent infection is suspected, repeattesting on a new sample collected in 7 to 14 days isrecommended.Babesia microti IgG <1:10 Reference Range: Neg:<1:10E. chaffeensis IgG Negative Reference Range: Neg:<1:64A. phagocytophilum IgG Negative Reference Range: Neg:<1:64Result Comments: Comment Reference Range: .Antibody titers may be negative in the first 7-10 days ofillness. A four-fold rise in IgG antibody titers forBabesia microti, Anaplasma phagocytophilum, and/orEhrlichia chaffeensis in paired samples (acute andconvalescent) supports the diagnosis of babesiosis,anaplasmosis, and/or ehrlichiosis, respectively.Performed at: [address] [id number] Director: Rosas Molina PhD, Phone: [phone] at: [address] [id number] Director: Michelle Nichols MD, Phone: [phone] Start: 06-12-2025 INSTRUCTIONAL SERVICES SPECIALIST antibody measurement Dr. Ashu Richard MD Work Phone: Comment on above: Previous reported result: TNP AIEdited b y: INFCE on 06/15/25:1408 AMENDED REPORT 06/15/25 1408 INSTRUCTIONAL SERVICES SPECIALIST Ab previously reported as: Test not performed Start: 05-17-2025 Measurement of Borrelia burgdorferi antibody Dr. Ashu Richard MD Work Phone: Comment on above: Lyme antibodies not detected. Reflex buffy ting is notindicated.No laboratory evidence of infection with B. burgdorferi(Lyme disease). Negative results may occur in patientsrecently infected (less than or equal to 14 days) with B.burgdorferi. If recent infection is suspected, repeattesting on a new sample collected in 7 to 14 days isrecommended.Performed at: [place] [id number] Director: Rosas Molina PhD, Phone: [phone] Start: 11-13-2024 Us breast uni real time with image limited Suman Moreira APRN.RECEPTIONIST/TELEPHONE OPERATOR Work Phone: Start: 11-13-2024 Digital breast tomosynthesis unilateral Suman Moreira APRN.RECEPTIONIST/TELEPHONE OPERATOR Work Phone: Start: 01-22-2024 Us breast uni real time with image limited Regine Peña MD Work Phone: Start: 01-22-2024 Digital breast tomosynthesis unilateral Regine Peña MD Work Phone: Start: 04-08-2023 Follow-up visit Follow-up CECE GILMORE Start: 04-03-2023 CBC AND ELECTRONIC DIFF Jovanna Tony on PAC Work Phone: Start: 04-03-2023 Complete blood count with white cell differential, automated Jovanna Brannon PAC Work Phone: Start: 04-03-2023 Comprehensive metabolic panel Jovanna Brannon PAC Work Phone: Start: 04-02-2023 Mri lower extrem oth/thn jt w/o & w/contr matr Neelam Ward MD Work Phone: Start: 04-02-2023 Radex foot complete minimum 3 views Michael Mcmahon DPM Work Phone: Start: 04-02-2023 Basic metabolic panel calcium total Mary Sinha DO Work Phone: Start: 04-02-2023 C-reactive protein Jovanna Brannon PAC Work Phone: Start: 04-02-2023 CBC AND ELECTRONIC DIFF Mary Sinha DO Work Phone: Start: 04-02-2023 Complete blood count with white cell differential, automated Mary Sinha DO Work Phone: Start: 04-02-2023 GOLD TOP TUBE Mary Sinha DO Work Phone: Start: 04-02-2023 LAVENDER TOP TUBE Mary Sinha DO Work Phone: Start: 04-02-2023 LT BLUE TOP TUBE Mary Sinha DO Work Phone: Start: 04-02-2023 MINT GREEN TOP TUBE Mary Sinha DO Work Phone: Start: 04-02-2023 RAINBOW DRAW Mary Sinha DO Work Phone: Start: 04-02-2023 Us lmtd joint/oth nonvasc xtr strux r-t w/img Mary Sinha DO Work Phone: Start: 03-29-2023 X-ray of both feet Start: 01-15-2023 End: 01-15-2023 Mammography Bulk Order Provider Start: 01-13-2022 Us breast uni real time with image limited Regine Peña MD Work Phone: Start: 10-06-2018 Adult depression screening assessment Us 1 Work Phone: Start: 06-21-2012 H/O: section H/O: Mary Sinha DO Work Phone: Investigation of tra nsfusion reaction Microbial culture, routine Plan of Treatment Date Care Activity Detail Author Start: 03-23-2033 Tetanus vaccination TETANUS [facility] Start: 03-23-2033 Urine microalbumin profile [facility] Start: 10-26-2029 Screening for malign ant neoplasm of cervix Cervical Cancer Screening [facility] Start: 11-14-2025 End: 11-14-2025 Patient encounter procedure 11/14/2025 8:30 AM EST Appointment Mammogram [address] [id number] Encounter for gynecological examination (general) (routine) without abnormal findings [Z01.419]; Encounter for screening mammogram for breast cancer [Z12.31] Mammogram Comment on above: Encounter for gyneco logical examination (general) (routine) without abnormal findings [Z01.419]; Encounter for screening mammogram for breast cancer [Z12.31] Start: 10-26-2025 End: 10-26-2025 Patient encounter procedure 10/26/2025 1:40 PM EST Office Visit OB/Gynecology [address] [place], [place] [id number] Regine Peña MD [address] [place], [place] [id number] Annual OB/Gynecology Comment on above: Annual Start: 01-18-2025 Screening for malign ant neoplasm of breast Mammogram Screening [facility] Start: 11-13-2024 End: 11-13-2024 Patient encounter procedure Mammography Comment on above: Diag Zoltan (bilateral) & Breast US LTD (left) Start: 11-10-2024 HPV TESTING HPV TESTING [facility] Start: 11-10-2024 PAP TESTING PAP TESTING [facility] Start: 11-10-2024 Screening for malign ant neoplasm of cervix [facility] Start: 10-26-2024 End: 10-26-2024 Patient encounter procedure 10/26/2024 2:20 PM EST Office Visit OB/Gynecology [address] [place], [place] [phone] Regine Peña MD [address] [place], [place] [id number] annual OB/Gynecology Comment on above: annual Start: 06-18-2024 Covid-19 Vaccine () Covid-19 Vaccine () [facility] Start: 06-18-2024 Covid-19 Vaccine () Covid-19 Vaccine () [facility] Start: 06-18-2024 Influenza vaccination C [facility] Start: 01-16-2024 Mammography [facility] Start: 01-16-2024 Screening for malign ant neoplasm of breast Mammogram Screening [facility] Start: 10-18-2023 Behavioral Health Screening Behavioral Health Screening [facility] Start: 07-16-2023 End: 09-15-2023 MISC SEND OUT TST 1 [facility] Work Phone: Comment on above: Expected: 07/16/2023 , Expires: 09/15/2023 Start: 06-18-2023 Covid-19 Vaccine () Covid-19 Vaccine () [facility] Start: 06-18-2023 Influenza vaccination [facility] Start: 10-18-2022 DEPRESSION ASSESSMENT DEPRESSION ASS ESSMENT [facility] Start: 2022 Lipid panel LIPID SCREENING [facility] Start: 2022 Screening for malign ant neoplasm of breast MAMMOGRAM SCREENING DISCUSSION [facility] Start: 09-09-2022 End: 11-09-2022 CBC W Auto Differential panel - Blood [facility] Work Phone: Comment on above: Expected: 09/09/2022 , Expires: 11/09/2022 Start: 09-09-2022 End: 11-09-2022 Comprehensive metabolic 2000 panel - Serum or Plasma [facility] Work Phone: Comment on above: Expected: 09/09/2022 , Expires: 11/09/2022 Start: 09-09-2022 End: 11-09-2022 Hepatitis C virus Ab [Presence] in Serum [facility] Work Phone: Comment on above: Expected: 09/09/2022 , Expires: 11/09/2022 Start: 09-09-2022 End: 11-09-2022 HIV 1+2 Ab [Presence] in Serum or Plasma by Immunoassay [facility] Work Phone: Comment on above: Expected: 09/09/2022 , Expires: 11/09/2022 Start: 09-09-2022 End: 11-09-2022 Lipid 1996 panel - Serum or Plasma [facility] Work Phone: Comment on above: Expected: 09/09/2022 , Expires: 11/09/2022 Start: 11-20-2021 COVID-19 VACCINE (4 - Booster for Moderna series) COVID-19 VACCINE (4 - Booster for Moderna series) [facility] Start: 10-06-2019 Adult depression screening assessment DEPRESSION SCREENING [facility] Start: 11-08-2013 Screening for malign ant neoplasm of cervix CERVICAL CANCER SCREENING DISCUSSION [facility] Start: 2001 Hepatitis B Vaccine (1 of 3 - 19+ 3-dose series) Hepatitis B Vaccine (1 of 3 - 19+ 3-dose series) [facility] Start: 2001 Urine microalbumin profile DTAP,TDAP,TD (1 - Tdap) [facility] Start: 2000 Anxiety Screening Anxiety Screening [facility] Start: 2000 Depression Screening Depression Scre ening [facility] Start: 2000 HEPATITIS C SCREENING HEPATITIS C SC REENING [facility] Start: 2000 HIV SCREENING HIV SCREENING [facility] Start: 1982 HEPATITIS B (1 of 3 - 3-dose series) HEPATITIS B (1 of 3 - 3-dose series) [facility] Start: 1982 Hepatitis B Vaccine (1 of 3 - 3-dose series) Hepatitis B Vaccine (1 of 3 - 3-dose series) [facility] Start: 1982 Hepatitis C screening HEPATITI S C VIRUS SCREENING [facility] DBT Breast - bilater al screening ZOLTAN SCREENING W JOSE RAFAEL Radiology Routine Encounter for screening mammogram for breast cancer Family history of malignant neoplasm of breast 01/19/2024 8:42 AM EDT [facility] Work Phone: End: 11-25-2025 DBT Breast - bilateral screening ZOLTAN SCREENING W JOSE RAFAEL Radiology Routine Encounter for gynecological examination (general) (routine) without abnormal findings Encounter for screening mammogram for breast cancer 1 Occurrences starting 10/26/2024 until 11/25/2025 [facility] Work Phone: Comment on above: 1 Occurrences starti ng 10/26/2024 until 11/25/2025 Hemoglobin.gastroint est inal.lower [Presence] in Stool by Immunoassay FECAL OCCULT BLOOD TEST Lab Routine Blood per rectum Ordered: 09/09/2022 [facility] Work Phone: Comment on above: Ordered: 09/09/2022 End: 06-30-2024 ZOLTAN SCREENING W JOSE RAFAEL ZOLTAN SCREENING W JOSE RAFAEL Radiology Routine Encounter for screening mammogram for breast cancer Family history of malignant neoplasm of breast 1 Occurrences starting 06/01/2023 until 06/30/2024 [facility] Work Phone: Comment on above: 1 Occurrences starti ng 06/01/2023 until 06/30/2024 End: 10-28-2025 MG Breast - bilateral Diagnostic ZOLTAN DIAGNOSTIC BILATERAL Radiology Routine Breast pain Mass of upper outer quadrant of left breast 1 Occurrences starting 09/28/2024 until 10/28/2025 [facility] Work Phone: Comment on above: 1 Occurrences starti ng 09/28/2024 until 10/28/2025 End: 02-18-2025 MG Breast - left Diagnostic for implant ZOLTAN DIAGNOSTIC LEFT Radiology Routine Abnormal mammogram 1 Occurrences starting 01/20/2024 until 02/18/2025 [facility] Work Phone: Comment on above: 1 Occurrences starti ng 01/20/2024 until 02/18/2025 PAP TEST PAP TEST Lab Brian ortiz Encounter for gynecological examination (general) (routine) without abnormal findings Screening for cervical cancer Encounter for screening for human papillomavirus (HPV) 10/26/2024 3:07 PM EST [facility] End: 02-18-2025 US Breast - left limited US BREAST LTD LEFT Radiology Routine Abnormal mammogram 1 Occurrences starting 01/20/2024 until 02/18/2025 [facility] Work Phone: Comment on above: 1 Occurrences starti ng 01/20/2024 until 02/18/2025 End: 10-28-2025 US Breast - left limited US BREAST LTD LEFT Radiology Routine Breast pain Mass of upper outer quadrant of left breast 1 Occurrences starting 09/28/2024 until 10/28/2025 [facility] Comment on above: 1 Occurrences starti ng 09/28/2024 until 10/28/2025 [facility] Immunizations Immunization Date Immunization Notes Care Provider Brielle leonard 10-04-2024 influenza, seasonal, injectable, preservative free Regine Peña MD Work Phone: [facility] 03-23-2023 tetanus toxoid, redu santiago diphtheria toxoid, and acellular pertussis vaccine, adsorbed Regine Peña MD Work Phone: [facility] Work Phone: 08-08-2022 influenza, injectabl e, quadrivalent, contains preservative Mere Grier MD Work Phone: [facility] 08-08-2022 influenza virus vaccine, unspecified formulation Homa Andrademel [facility] Work Phone: [facility] 09-05-2021 influenza, injectabl e, quadrivalent, contains preservative Us 1 Work Phone: [facility] Work Phone: 07-27-2020 influenza, injectabl e, quadrivalent, contains preservative Us 1 Work Phone: [facility] 08-18-2019 influenza, injectabl e, quadrivalent, contains preservative Us 1 Work Phone: [facility] 08-26-2018 influenza, injectabl e, quadrivalent, contains preservative Us 1 Work Phone: [facility] Work Phone: 08-11-2017 Influenza, injectabl e, Madin Lillie Canine Kidney, preservative free, quadrivalent Regine Peña MD Work Phone: [facility] Work Phone: 07-24-2016 influenza, injectabl e, quadrivalent, preservative free Regine Peña MD Work Phone: [facility] Work Phone: 07-24-2015 influenza, injectabl e, quadrivalent, preservative free Regine Peña MD Work Phone: [facility] Work Phone: 08-12-2009 novel [id number], preservative-free, injectable Regine Peña MD Work Phone: [facility] Work Phone: Payers Date Payer Category Payer Self-pay 2024 Unknown [id number] 2024 Unknown [id number] 2016 Unknown SEVERIANO CURRY PPO [id number] 2016-Present [phone] [facility] [address] [place] [address] PPO [id number] 2016 Unknown [id number] 2016 Unknown [id number] 1980 Unknown [id number] 1980 Unknown [id number] Unknown [id number] Unknown [id number] Unknown [id number] Unknown [id number] Social History Date Type Detail Facility Start: 06-20-2015 End: 09-09-2022 Tobacco smoking status NHIS Never smoked tobacco [facility] Work Phone: Start: 06-20-2015 End: 09-09-2022 Tobacco use and exposure Smokeless tobacco non-user [facility] Work Phone: Start: 11-11-2020 End: 11-13-2024 Alcohol intake Current drinker of alcohol (finding) [facility] Start: 06-20-2015 History SDOH Alcohol Comment Occasionally [facility] Start: 1980 Sex Assigned At Not on file [facility] Start: 01-03-2022 End: 09-09-2022 Exposure to SARS-CoV-2 (event) Not sure [facility] Start: 09-08-2022 History SDOH Alcohol Frequency 3 [facility] Start: 09-08-2022 History SDOH Alcohol Std Drinks 1 [facility] Start: 09-08-2022 History SDOH Alcohol Binge 2 [facility] Start: 09-08-2022 History SDOH Social Connections Phone 5 [facility] Start: 09-08-2022 History SDOH Social Connections Meetings 98 [facility] Start: 1980 Sex Assigned At Female [facility] Start: 03-29-2023 End: 04-02-2023 Alcohol intake [facility] Start: 03-29-2023 End: 04-02-2023 Tobacco use panel [facility] Active Member of [facility] bs or Organizations Not on file [facility] Are you now , , , , never or living with a partner? [facility] How often to you hav e a drink containing alcohol? 2-4 times a month [facility] How many standard dr inks containing alcohol do you have on a typical day? 1 or 2 [facility] How often do you hav e 6 or more drinks on 1 occasion? Less than monthly [facility] Do you feel stress - tense, restless, nervous, or anxious, or unable to sleep at night because your mind is troubled all the time - these days [OSQ] Not at all [facility] (I/We) worried wheth er (my/our) food would run out before (I/we) got money to buy more. Never true [facility] At any time in the p ast 12 months, were you homeless or living in jail [including now]? No [facility] Start: 11-02-2023 Gender identity Identifies as female gender (finding) [facility] Start: 11-02-2023 Sexual orientation Heterosexual (finding) [facility] Tobacco smoking stat us NHIS Unknown if ever smoked [facility] Work Phone: Clinical Notes 01-13-2022 to 06-12-2025 Judy Rivas, CT - 11/13/2024 9:20 AM RANJANABriseydaSong, RT(R) - 11/13/2024 9:00 AM Regine Patel MD - 10/26/2024 2:23 PM Suman Maharaj, SLOT FLOOR ATTENDANT.RECEPTIONIST/TELEPHONE OPERATOR - 09/28/2024 2:04 PM ESTAttachments Note Date & Type Note Facility 06-12-2025 Radiology Diagnostic study note [facility] Imaging Services [address] [place], [place] [address] Chest PA and Lateral MR#: [id number] Acct: [id number] Name: IRIS VACA Rep #: [id number] : 1980 F [id number] From: Marianna Bautista MD PCP: Dr. Ashu Richard MD Status: REG CLI Study:Chest PA and Lateral Date of Exam: 06/12/25 Exam# [id number] Ordering Dr: David Richard MD PROCEDURE: CHEST PA AND LATERAL 06/12/2025 REASON FOR EXAM: COUGH TECHNIQUE: CHEST PA AND LATERAL COMPARISON: None. FINDINGS: LUNGS AND PLEURA: No focal airspace consolidation. Minimal biapical pleural thickening. No pleural effusion or pneumothorax. HEART AND MEDIASTINUM: The heart size and mediastinal contours are normal. BONES: No acute osseous abnormality. RAD/Chest PA and Lateral IMPRESSION: NO ACUTE FINDINGS. Reading Location: [id number] CC: Dr. Ashu Richard MD ~ Wire Mesh Gate Assembler: Signed [facility] 11-13-2024 History of Present illness Narrative Radiology Service Progress Note PATIENT NAME: Iris Vaca DATE OF SERVICE: November 13, 2024 TIME: 9:09 AM PATIENT IDENTITY VERIFICATION COMPLETED USING TWO (2) IDENTIFIERS: Name and Date of confirmed by patient verbally. FALL SCREENING: Has the patient had 2 falls in the last year or 1 fall with injury or currently using an Ambulatory Assistive Device (Walker, Cane, Wheelchair, Crutches, etc.)? No PATIENT GENDER DATA: Assigned female at . status: : No status: NO. PATIENT RELEVANT IMPLANT DATA REVIEWED: Not Applicable PATIENT PRESENTS WITH AN IMPLANTABLE OR ATTACHED DIGITAL ACCOUNT EXECUTIVE: No RADIOLOGY DEPARTMENT: Ultrasound PERIPHERAL IV DATA: Not applicable SIGNED BY: JIE Perez November 13, 2024 9:09 AM documented in this encounter [facility] 11-13-2024 Note HNO ID: [id number] Author: JUDY RIVAS CT Service: Radiology Author Type: Technologist Type: Progress Notes Filed: 11/13/2024 09:09 Note Text: Radiology Service Progress Note PATIENT NAME: Iris Vaca DATE OF SERVICE: November 13, 2024 TIME: 9:09 AM PATIENT IDENTITY VERIFICATION COMPLETED USING TWO (2) IDENTIFIERS: Name and Date of confirmed by patient verbally. FALL SCREENING: Has the patient had 2 falls in the last year or 1 fall with injury or currently using an Ambulatory Assistive Device (Walker, Cane, Wheelchair, Crutches, etc.)? No PATIENT GENDER DATA: Assigned female at . status: : No status: NO. PATIENT RELEVANT IMPLANT DATA REVIEWED: Not Applicable PATIENT PRESENTS WITH AN IMPLANTABLE OR ATTACHED DIGITAL ACCOUNT EXECUTIVE: No RADIOLOGY DEPARTMENT: Ultrasound PERIPHERAL IV DATA: Not applicable SIGNED BY: JIE Perez November 13, 2024 9:09 AM [facility] 11-13-2024 History of Present illness Narrative Radiology Service Progress Note PATIENT NAME: Iris Vaca DATE OF SERVICE: November 13, 2024 TIME: 8:49 AM PATIENT IDENTITY VERIFICATION COMPLETED USING TWO (2) IDENTIFIERS: Name and Date of confirmed by patient verbally. FALL SCREENING: Has the patient had 2 falls in the last year or 1 fall with injury or currently using an Ambulatory Assistive Device (Walker, Cane, Wheelchair, Crutches, etc.)? No PATIENT GENDER DATA: Assigned female at . status: : No status: NO. PATIENT RELEVANT IMPLANT DATA REVIEWED: Not Applicable PATIENT PRESENTS WITH AN IMPLANTABLE OR ATTACHED DIGITAL ACCOUNT EXECUTIVE: No RADIOLOGY DEPARTMENT: Mammography PERIPHERAL IV DATA: Not applicable SIGNED BY: NIKA Dailey)(Sergei) November 13, 2024 8:49 AM documented in this encounter [facility] 11-13-2024 Note HNO ID: [id number] Author: SONG VILLARREAL RT(R) Service: Radiology Author Type: Technologist Type: Progress Notes Filed: 11/13/2024 08:49 Note Text: Radiology Service Progress Note PATIENT NAME: Iris Vaca DATE OF SERVICE: November 13, 2024 TIME: 8:49 AM PATIENT IDENTITY VERIFICATION COMPLETED USING TWO (2) IDENTIFIERS: Name and Date of confirmed by patient verbally. FALL SCREENING: Has the patient had 2 falls in the last year or 1 fall with injury or currently using an Ambulatory Assistive Device (Walker, Cane, Wheelchair, Crutches, etc.)? No PATIENT GENDER DATA: Assigned female at . status: : No status: NO. PATIENT RELEVANT IMPLANT DATA REVIEWED: Not Applicable PATIENT PRESENTS WITH AN IMPLANTABLE OR ATTACHED DIGITAL ACCOUNT EXECUTIVE: No RADIOLOGY DEPARTMENT: Mammography PERIPHERAL IV DATA: Not applicable SIGNED BY: NIKA Dailey)(M) November 13, 2024 8:49 AM [facility] 10-26-2024 Note HNO ID: [id number] Author: REGINE PEÑA MD Service: ? Author Type: Physician Type: Progress Notes Filed: 10/26/2024 14:57 Note Text: Iris is a 44 year old who presents for an annual gynecologic exam with complaints, had some breast pain and saw GRAIN ELEVATOR MAN and f/u imaging ordered. Not bothering her now . Menses: cycles every 21-28 days and 4-7 days of flow Menstrual flow: one day heavy then light Bleeding amount bothersome: No Contraception: Vasectomy Contraception frequency: Always HPV vaccine: No HPV:negative Last pap smear: 2019 History of abnormal pap: No Last mammogram: up to date Sexually active: Yes OB History T2 L2 SAB0 IAB0 Ectopic0 Multiple0 Live Births2 Comment: First - 2 vessel cord, SGA, breech so had c/s. Had first trimester bleeding. Case Assembler History LMP: 10/02/2024 (Approximate), Having periods Age at Menarche: Age at First : Age at Menopause: Case Assembler History Comments: Sexual Activity: Yes; Male Contraception: Vasectomy PAST MEDICAL HISTORY Diagnosis Date NEGATIVE MEDICAL HISTORY PAST SURGICAL HISTORY Procedure Laterality Date DELIVERY ONLY 2008, 2011 , low transverse EXTRACTION, ERUPTED TOOTH OR EXPOSED ROOT (ELEVATION AND/OR FORCEPS REMOVAL) FAMILY HISTORY Problem Relation Age of Onset Cancer Mother other (Other- multiple myeloma) Mother other (Ocular Myasthenia Gravis) Father Prostate Cancer Father Cancer Maternal Grandmother 67 Ovarian Cancer Heart Paternal Grandmother Diabetes Paternal Grandmother Heart Paternal Grandfather [place] Breast Cancer Maternal Aunt 40 SOCIAL HISTORY Social History Tobacco Use Smoking status: Never Smokeless tobacco: Never Vaping Use Vaping status: Never Used Substance Use Topics Alcohol use: Yes Comment: Occasionally Drug use: No REVIEW OF SYSTEMS Abdomen: No abdominal pain, nausea, vomiting, diarrhea, or constipation. No bloating, early satiety, indigestion, or increased flatulence. Bladder: No dysuria, gross hematuria, urinary frequency, urinary urgency, or incontinence. Breast: No breast lumps, nipple d/c, overlying skin changes, redness or skin retraction. Allergies and current medication updated:Yes SENSITIVE EXAM: The sensitive examination was discussed with the Patient or Patient's Authorized Weighing Station Operator. As applicable, any other physician, advance practice provider, medical student, or other health professional student that will be observing or involved in the sensitive examination for educational or training purposes was discussed with the Patient or Authorized Weighing Station Operator. The Patient or Authorized Weighing Station Operator has agreed to proceed with the sensitive examination. (Sensitive examination includes inspection and/or palpation of the breasts, pelvis, prostate and anorectal regions). EXAM: BP 112/74 Wt 154 lb (69.9kg) LMP 10/02/2024 GENERAL: pleasant, female in no apparent distress HEENT: Normocephalic, atraumatic, mucus membranes moist, and no lesions NECK: Supple, full range of motion, no adenopathy, and thyroid normal DERMATOLOGY: Normal, without lesions, non-icteric, and non-hirsute BREAST: soft, non-tender, symmetric, no dominant mass, normal nipple-areolar complex, no lymphadenopathy, and no nipple discharge CHEST: Normal inspiratory effort ABDOMEN: soft, non-tender, and no masses PELVIC: external genitalia normal, normal Bartholin's glands, urethra, [place]'s glands, no vulvar lesions, no cervical lesions, good vaginal support, physiologic discharge present, normal appearing perineal body and perianal region BIMANUAL: uterus normal size, shape and consistency, no adnexal masses, and non-tender RECTOVAGINAL: deferred. NEURO: alert and oriented x3,exam grossly non-focal EXTREMITIES: normal ASSESSMENT/PLAN: 1) Health maintenance: Pap done with HPV. Mammogram ordered. 2) Contraception: vasectomy. Contraceptive options reviewed and information provided. 3) STD screening: Declined STD check. 4) Follow up one year or sooner as needed Regine Peña MD [facility] 10-26-2024 History of Present illness Narrative Iris is a 44 year old who presents for an annual gynecologic exam with complaints, had some breast pain and saw GRAIN ELEVATOR MAN and f/u imaging ordered. Not bothering her now . Menses: cycles every 21-28 days and 4-7 days of flow Menstrual flow: one day heavy then light Bleeding amount bothersome: No Contraception: Vasectomy Contraception frequency: Always HPV vaccine: No HPV:negative Last pap smear: 2019 History of abnormal pap: No Last mammogram: up to date Sexually active: Yes OB History T2 L2 SAB0 IAB0 Ectopic0 Multiple0 Live Births2 Comment: First - 2 vessel cord, SGA, breech so had c/s. Had first trimester bleeding. Case Assembler History LMP: 10/02/2024 (Approximate), Having periods Age at Menarche: Age at First : Age at Menopause: Case Assembler History Comments: Sexual Activity: Yes; Male Contraception: Vasectomy PAST MEDICAL HISTORY Diagnosis Date NEGATIVE MEDICAL HISTORY PAST SURGICAL HISTORY Procedure Laterality Date DELIVERY ONLY 2008, 2011 , low transverse EXTRACTION, ERUPTED TOOTH OR EXPOSED ROOT (ELEVATION AND/OR FORCEPS REMOVAL) FAMILY HISTORY Problem Relation Age of Onset Cancer Mother other (Other- multiple myeloma) Mother other (Ocular Myasthenia Gravis) Father Prostate Cancer Father Cancer Maternal Grandmother 67 Ovarian Cancer Heart Paternal Grandmother Diabetes Paternal Grandmother Heart Paternal Grandfather [place] Breast Cancer Maternal Aunt 40 SOCIAL HISTORY Social History Tobacco Use Smoking status: Never Smokeless tobacco: Never Vaping Use Vaping status: Never Used Substance Use Topics Alcohol use: Yes Comment: Occasionally Drug use: No REVIEW OF SYSTEMS Abdomen: No abdominal pain, nausea, vomiting, diarrhea, or constipation. No bloating, early satiety, indigestion, or increased flatulence. Bladder: No dysuria, gross hematuria, urinary frequency, urinary urgency, or incontinence. Breast: No breast lumps, nipple d/c, overlying skin changes, redness or skin retraction. Allergies and current medication updated:Yes SENSITIVE EXAM: The sensitive examination was discussed with the Patient or Patient's Authorized Weighing Station Operator. As applicable, any other physician, advance practice provider, medical student, or other health professional student that will be observing or involved in the sensitive examination for educational or training purposes was discussed with the Patient or Authorized Weighing Station Operator. The Patient or Authorized Weighing Station Operator has agreed to proceed with the sensitive examination. (Sensitive examination includes inspection and/or palpation of the breasts, pelvis, prostate and anorectal regions). EXAM: BP 112/74 Wt 154 lb (69.9kg) LMP 10/02/2024 GENERAL: pleasant, female in no apparent distress HEENT: Normocephalic, atraumatic, mucus membranes moist, and no lesions NECK: Supple, full range of motion, no adenopathy, and thyroid normal DERMATOLOGY: Normal, without lesions, non-icteric, and non-hirsute BREAST: soft, non-tender, symmetric, no dominant mass, normal nipple-areolar complex, no lymphadenopathy, and no nipple discharge CHEST: Normal inspiratory effort ABDOMEN: soft, non-tender, and no masses PELVIC: external genitalia normal, normal Bartholin's glands, urethra, [place]'s glands, no vulvar lesions, no cervical lesions, good vaginal support, physiologic discharge present, normal appearing perineal body and perianal region BIMANUAL: uterus normal size, shape and consistency, no adnexal masses, and non-tender RECTOVAGINAL: deferred. NEURO: alert and oriented x3,exam grossly non-focal EXTREMITIES: normal ASSESSMENT/PLAN: 1) Health maintenance: Pap done with HPV. Mammogram ordered. 2) Contraception: vasectomy. Contraceptive options reviewed and information provided. 3) STD screening: Declined STD check. 4) Follow up one year or sooner as needed Regine Peañ MD documented in this encounter [facility] 09-28-2024 Note HNO ID: [id number] Author: SUMAN MOREIRA APRN.RECEPTIONIST/TELEPHONE OPERATOR Service: ? Author Type: Nurse Practitioner Type: Progress Notes Filed: 09/28/2024 14:23 Note Text: Blending Operator offered: Patient declines. Iris Vaca is a 43 year old female who presents for problem visit for a left breast lump and pain for 2 week(s). HPI: Iris presents for left breast pain and lump. The pain is intermittent. She seen her PCP 2 weeks ago and he said there was a possibility of a pulled muscle, but no breast exam was performed. No redness, warmth, or swelling. No nipple discharge or itching. Breast cyst noted to left breast on imaging in January 2024. There is no sonographic evidence of malignancy. The 2.6 cm x 2.1 cm x 0.9 cm oval mass in the left breast is consistent with a simple cyst and is benign. Return to annual mammogram screening schedule is recommended. OB History T2 L2 SAB0 IAB0 Ectopic0 Multiple0 Live Births2 Comment: First - 2 vessel cord, SGA, breech so had c/s. Had first trimester bleeding. Case Assembler History LMP: 09/11/2024 (Exact Date), Having periods Age at Menarche: Age at First : Age at Menopause: Case Assembler History Comments: Sexual Activity: Yes; Male Contraception: Vasectomy PAST MEDICAL HISTORY Diagnosis Date NEGATIVE MEDICAL HISTORY PAST SURGICAL HISTORY Procedure Laterality Date DELIVERY ONLY 2008, 2011 , low transverse EXTRACTION, ERUPTED TOOTH OR EXPOSED ROOT (ELEVATION AND/OR FORCEPS REMOVAL) FAMILY HISTORY Problem Relation Age of Onset Cancer Mother other (Other- multiple myeloma) Mother other (Ocular Myasthenia Gravis) Father Cancer Maternal Grandmother 67 Ovarian Cancer Heart Paternal Grandmother Diabetes Paternal Grandmother Heart Paternal Grandfather [place] Breast Cancer Maternal Aunt 40 Social History Tobacco Use Smoking status: Never Smokeless tobacco: Never Vaping Use Vaping status: Never Used Substance Use Topics Alcohol use: Yes Comment: Occasionally Drug use: No No current outpatient medications on file. No current facility-administered medications for this visit. Allergies As of Date: 09/28/2024 (No Known Allergies) Fully Assessed 09/28/2024 REVIEW OF SYSTEMS. Breast: No nipple d/c, overlying skin changes, redness or skin retraction. + breast pain and lump to left breast Expanded ROS: N/A Allergies and current medication updated:Yes SENSITIVE EXAM: The sensitive examination was discussed with the Patient or Patient's Authorized Weighing Station Operator. As applicable, any other physician, advance practice provider, medical student, or other health professional student that will be observing or involved in the sensitive examination for educational or training purposes was discussed with the Patient or Authorized Weighing Station Operator. The Patient or Authorized Weighing Station Operator has agreed to proceed with the sensitive examination. (Sensitive examination includes inspection and/or palpation of the breasts, pelvis, prostate and anorectal regions). EXAM: BP 120/70 Wt 153 lb (69.4kg) LMP 09/11/2024 GENERAL: pleasant, female in no apparent distress HEENT: Normocephalic, atraumatic, mucus membranes moist, and no lesions BREAST: soft, symmetric, normal nipple-areolar complex, no lymphadenopathy, and no nipple discharge + mobile 2 cm mass to left breast, 5 cm from nipple at 3 o'clock position, left breast fibrocystic CHEST: Normal inspiratory effort NEURO: alert and oriented x3,exam grossly non-focal EXTREMITIES: normal ASSESSMENT AND PLAN: 1. Breast pain - ICD9: 611.71, ICD10: N64.4 (primary diagnosis) 2. Mass of upper outer quadrant of left breast - ICD9: 611.72, ICD10: N63.21 - Likely a cyst - Recommend diagnostic imaging - Wear well supportive bra, can rotate Tylenol and Ibuprofen - Fibrocystic left breast - discussed aggravating and relieving factors RTO for annual or sooner as needed. Suman Moreira APRN.RECEPTIONIST/TELEPHONE OPERATOR Medical Decision Making: Problems: Low: Acute, uncomplicated illness or injury Data: Unique test result(s) reviewed: 1 Unique test(s) ordered: 2 Risk: Low: Low risk from testing/treatment Medical Decision Making Level: 3 - Low [facility] 09-28-2024 History of Present illness Narrative Blending Operator offered: Patient declines. Iris Vaca is a 43 year old female who presents for problem visit for a left breast lump and pain for 2 week(s). HPI: Iris presents for left breast pain and lump. The pain is intermittent. She seen her PCP 2 weeks ago and he said there was a possibility of a pulled muscle, but no breast exam was performed. No redness, warmth, or swelling. No nipple discharge or itching. Breast cyst noted to left breast on imaging in January 2024. There is no sonographic evidence of malignancy. The 2.6 cm x 2.1 cm x 0.9 cm oval mass in the left breast is consistent with a simple cyst and is benign. Return to annual mammogram screening schedule is recommended. OB History T2 L2 SAB0 IAB0 Ectopic0 Multiple0 Live Births2 Comment: First - 2 vessel cord, SGA, breech so had c/s. Had first trimester bleeding. Case Assembler History LMP: 09/11/2024 (Exact Date), Having periods Age at Menarche: Age at First : Age at Menopause: Case Assembler History Comments: Sexual Activity: Yes; Male Contraception: Vasectomy PAST MEDICAL HISTORY Diagnosis Date NEGATIVE MEDICAL HISTORY PAST SURGICAL HISTORY Procedure Laterality Date DELIVERY ONLY 2008, 2011 , low transverse EXTRACTION, ERUPTED TOOTH OR EXPOSED ROOT (ELEVATION AND/OR FORCEPS REMOVAL) FAMILY HISTORY Problem Relation Age of Onset Cancer Mother other (Other- multiple myeloma) Mother other (Ocular Myasthenia Gravis) Father Cancer Maternal Grandmother 67 Ovarian Cancer Heart Paternal Grandmother Diabetes Paternal Grandmother Heart Paternal Grandfather [place] Breast Cancer Maternal Aunt 40 Social History Tobacco Use Smoking status: Never Smokeless tobacco: Never Vaping Use Vaping status: Never Used Substance Use Topics Alcohol use: Yes Comment: Occasionally Drug use: No No current outpatient medications on file. No current facility-administered medications for this visit. Allergies As of Date: 09/28/2024 (No Known Allergies) Fully Assessed 09/28/2024 REVIEW OF SYSTEMS. Breast: No nipple d/c, overlying skin changes, redness or skin retraction. + breast pain and lump to left breast Expanded ROS: N/A Allergies and current medication updated:Yes SENSITIVE EXAM: The sensitive examination was discussed with the Patient or Patient's Authorized Weighing Station Operator. As applicable, any other physician, advance practice provider, medical student, or other health professional student that will be observing or involved in the sensitive examination for educational or training purposes was discussed with the Patient or Authorized Weighing Station Operator. The Patient or Authorized Weighing Station Operator has agreed to proceed with the sensitive examination. (Sensitive examination includes inspection and/or palpation of the breasts, pelvis, prostate and anorectal regions). EXAM: BP 120/70 Wt 153 lb (69.4kg) LMP 09/11/2024 GENERAL: pleasant, female in no apparent distress HEENT: Normocephalic, atraumatic, mucus membranes moist, and no lesions BREAST: soft, symmetric, normal nipple-areolar complex, no lymphadenopathy, and no nipple discharge + mobile 2 cm mass to left breast, 5 cm from nipple at 3 o'clock position, left breast fibrocystic CHEST: Normal inspiratory effort NEURO: alert and oriented x3,exam grossly non-focal EXTREMITIES: normal ASSESSMENT AND PLAN: 1. Breast pain - ICD9: 611.71, ICD10: N64.4 (primary diagnosis) 2. Mass of upper outer quadrant of left breast - ICD9: 611.72, ICD10: N63.21 - Likely a cyst - Recommend diagnostic imaging - Wear well supportive bra, can rotate Tylenol and Ibuprofen - Fibrocystic left breast - discussed aggravating and relieving factors RTO for annual or sooner as needed. Suman Moreira APRN.CNP Medical Decision Making: Problems: Low: Acute, uncomplicated illness or injury Data: Unique test result(s) reviewed: 1 Unique test(s) ordered: 2 Risk: Low: Low risk from testing/treatment Medical Decision Making Level: 3 - Low documented in this encounter [facility] 01-22-2024 Note IMPRESSION: INCOMPLE TE: NEEDS ADDITIONAL IMAGING EVALUATION The oval equal density mass in the left breast is indeterminate. An ultrasound is recommended. LIMITED ULTRASOUND OF LEFT BREAST: 01/22/2024 RESULT: Comparison is made to exams dated: 01/19/2024 mammogram, 01/15/2023 mammogram, and 01/13/2022 mammogram - [facility]. Color flow and real-time ultrasound of the left breast were performed. Don scale images of the real-time examination were reviewed. There is a benign 2.6 cm x 2.1 cm x 0.9 cm oval mass with a circumscribed margin in the left breast at 2 o'clock 5 cm from the nipple. This oval mass is anechoic with an abrupt boundary, internal echoes, and posterior acoustic enhancement. This correlates with mammography findings. Color flow imaging demonstrates that there is no vascularity present. IMPRESSION: BENIGN FINDING There is no sonographic evidence of malignancy. The 2.6 cm x 2.1 cm x 0.9 cm oval mass in the left breast is consistent with a simple cyst and is benign. Return to annual mammogram screening schedule is recommended. Ilsa Zuniga M.D., jr/hodan:01/22/2024 09:28:45 Multiple national specialty organizations have released breast cancer screening guidelines for women at average risk for developing breast cancer - guidelines that are based on both evidence and opinion, yet differ on when to start and how often to screen for breast cancer. With representation from Breast Imaging, Internal Medicine, Women's Health, Family Medicine, and Medical/Surgical Oncology, the [facility] has carefully reviewed the data and reached the following consensus: 1) All women should engage in shared decision-making with their providers to decide when to start and how often to screen; 2) All women should have the opportunity to start screening mammography at age 40; 3) For women ages 45-55, we recommend annual screening mammograms; 4) For women ages 55 and over, we support both the transition from an annual to a biennial interval if this aligns more with patient's values and preferences, or continuation with annual screening; 5) All women should discuss with their providers when to stop screening mammograms. Electrical Maintenance Supervisor(s): Georgia Larson RT(R)(M), [facility]; Nila Parham RT(R)(M), [facility] OVERALL STUDY BIRADS: 2 Benign finding Wire Mesh Gate Assembler: Hodan Transcribe Date/Time: Jan 22 2024 8:49A Dictated by: ILSA ZUNIGA MD This examination was interpreted and the report reviewed and electronically signed by: ILSA ZUNIGA MD on Jan 22 2024 9:28AM [facility] OF RADIOLOGY 01-22-2024 Note IMPRESSION: INCOMPLE TE: NEEDS ADDITIONAL IMAGING EVALUATION The oval equal density mass in the left breast is indeterminate. An ultrasound is recommended. LIMITED ULTRASOUND OF LEFT BREAST: 01/22/2024 RESULT: Comparison is made to exams dated: 01/19/2024 mammogram, 01/15/2023 mammogram, and 01/13/2022 mammogram - [facility]. Color flow and real-time ultrasound of the left breast were performed. Don scale images of the real-time examination were reviewed. There is a benign 2.6 cm x 2.1 cm x 0.9 cm oval mass with a circumscribed margin in the left breast at 2 o'clock 5 cm from the nipple. This oval mass is anechoic with an abrupt boundary, internal echoes, and posterior acoustic enhancement. This correlates with mammography findings. Color flow imaging demonstrates that there is no vascularity present. IMPRESSION: BENIGN FINDING There is no sonographic evidence of malignancy. The 2.6 cm x 2.1 cm x 0.9 cm oval mass in the left breast is consistent with a simple cyst and is benign. Return to annual mammogram screening schedule is recommended. Ilsa Zuniga M.D., jr/hodan:01/22/2024 09:28:45 Multiple national specialty organizations have released breast cancer screening guidelines for women at average risk for developing breast cancer - guidelines that are based on both evidence and opinion, yet differ on when to start and how often to screen for breast cancer. With representation from Breast Imaging, Internal Medicine, Women's Health, Family Medicine, and Medical/Surgical Oncology, the [facility] has carefully reviewed the data and reached the following consensus: 1) All women should engage in shared decision-making with their providers to decide when to start and how often to screen; 2) All women should have the opportunity to start screening mammography at age 40; 3) For women ages 45-55, we recommend annual screening mammograms; 4) For women ages 55 and over, we support both the transition from an annual to a biennial interval if this aligns more with patient's values and preferences, or continuation with annual screening; 5) All women should discuss with their providers when to stop screening mammograms. Electrical Maintenance Supervisor(s): RT Hu(R)(M), [facility]; RT Meche(R)(M), [facility] OVERALL STUDY BIRADS: 2 Benign finding Wire Mesh Gate Assembler: Hodan Transcribe Date/Time: Jan 22 2024 8:49A Dictated by: ILSA ZUNIGA MD This examination was interpreted and the report reviewed and electronically signed by: ILSA ZUNIGA MD on Jan 22 2024 9:28AM [facility] OF RAD[facility]OLOG[facility] 01-22-2024 History of Present illness Narrative Radiology Service Progress Note PATIENT NAME: Iris Vaca DATE OF SERVICE: January 22, 2024 TIME: 9:12 AM PATIENT IDENTITY VERIFICATION COMPLETED USING TWO (2) IDENTIFIERS: Name and Date of confirmed by patient verbally. FALL SCREENING: Has the patient had 2 falls in the last year or 1 fall with injury or currently using an Ambulatory Assistive Device (Walker, Cane, Wheelchair, Crutches, etc.)? No PATIENT GENDER DATA: Female. status: : No status: NO. PATIENT RELEVANT IMPLANT DATA REVIEWED: Yes PATIENT PRESENTS WITH AN IMPLANTABLE OR ATTACHED DIGITAL ACCOUNT EXECUTIVE: No RADIOLOGY DEPARTMENT: Mammography PERIPHERAL IV DATA: Not applicable SIGNED BY: Mitchel Mcgregor January 22, 2024 9:12 AM documented in this encounter [facility] 01-22-2024 Note HNO ID: [id number] Author: NILA PARHAM Mammo Tech Service: Radiology Author Type: Directory Carrier Type: Progress Notes Filed: 01/22/2024 09:12 Note Text: Radiology Service Progress Note PATIENT NAME: Iris Vaca DATE OF SERVICE: January 22, 2024 TIME: 9:12 AM PATIENT IDENTITY VERIFICATION COMPLETED USING TWO (2) IDENTIFIERS: Name and Date of confirmed by patient verbally. FALL SCREENING: Has the patient had 2 falls in the last year or 1 fall with injury or currently using an Ambulatory Assistive Device (Walker, Cane, Wheelchair, Crutches, etc.)? No PATIENT GENDER DATA: Female. status: : No status: NO. PATIENT RELEVANT IMPLANT DATA REVIEWED: Yes PATIENT PRESENTS WITH AN IMPLANTABLE OR ATTACHED DIGITAL ACCOUNT EXECUTIVE: No RADIOLOGY DEPARTMENT: Mammography PERIPHERAL IV DATA: Not applicable SIGNED BY: Mitchel Mcgregor January 22, 2024 9:12 AM [facility] 01-20-2024 Miscellaneous Notes January 20, 2024 PID: [id number] Iris Vaca [address] [place] [address] Dear Ms. Vaca, Your recent breast imaging exam on 01/19/2024 showed a possible finding that requires additional imaging studies for a complete evaluation. Most such findings are probably benign (not cancer). Your mammogram demonstrates that you have dense breast tissue, which could hide abnormalities. Dense breast tissue, in and of itself, is a relatively common condition. Therefore, this information is not provided to cause undue concern; rather, it is to raise your awareness and promote discussion with your health care provider regarding the presence of dense breast tissue in addition to other risk factors. If you have a healthcare provider who ordered/prescribed your screening mammogram: Please call [phone] or [phone]: [phone] to schedule an appointment for your additional imaging (if you have not already done so). If you DO NOT have a healthcare provider (ie you did not have an order/prescription for your screening mammogram): Please call to schedule an appointment for your additional imaging (if you have not already done so). You must have an order/prescription from your physician when calling to schedule your appointment. If your order/prescription is not electronic, you must bring the hard copy with you on the day of your exam to avoid delays. Your imaging studies and reports are kept on file at [facility] as part of your permanent medical record, and are available for your continuing care. Thank you for allowing us to help in meeting your health care needs. Sincerely, Dr. Menjivar Interpreting Radiologist [facility] (Additional imaging) documented in this encounter [facility] 01-19-2024 History of Present illness Narrative Radiology Service Progress Note PATIENT NAME: Iris Vaca DATE OF SERVICE: January 19, 2024 TIME: 8:42 AM PATIENT IDENTITY VERIFICATION COMPLETED USING TWO (2) IDENTIFIERS: Name and Date of confirmed by patient verbally. FALL SCREENING: Has the patient had 2 falls in the last year or 1 fall with injury or currently using an Ambulatory Assistive Device (Walker, Cane, Wheelchair, Crutches, etc.)? No PATIENT GENDER DATA: Female. status: : No status: NO. PATIENT RELEVANT IMPLANT DATA REVIEWED: Not Applicable PATIENT PRESENTS WITH AN IMPLANTABLE OR ATTACHED DIGITAL ACCOUNT EXECUTIVE: No RADIOLOGY DEPARTMENT: Mammography PERIPHERAL IV DATA: Not applicable SIGNED BY: Mitchel Agarwal January 19, 2024 8:42 AM documented in this encounter [facility] 01-19-2024 Note HNO ID: [id number] Author: BROOKS CLEMENT Mammo Tech Service: ? Author Type: Directory Carrier Type: Progress Notes Filed: 01/19/2024 08:43 Note Text: Radiology Service Progress Note PATIENT NAME: Iris Vaca DATE OF SERVICE: January 19, 2024 TIME: 8:42 AM PATIENT IDENTITY VERIFICATION COMPLETED USING TWO (2) IDENTIFIERS: Name and Date of confirmed by patient verbally. FALL SCREENING: Has the patient had 2 falls in the last year or 1 fall with injury or currently using an Ambulatory Assistive Device (Walker, Cane, Wheelchair, Crutches, etc.)? No PATIENT GENDER DATA: Female. status: : No status: NO. PATIENT RELEVANT IMPLANT DATA REVIEWED: Not Applicable PATIENT PRESENTS WITH AN IMPLANTABLE OR ATTACHED DIGITAL ACCOUNT EXECUTIVE: No RADIOLOGY DEPARTMENT: Mammography PERIPHERAL IV DATA: Not applicable SIGNED BY: Mitchel Agarwal January 19, 2024 8:42 AM [facility] 07-30-2023 Miscellaneous Notes Results left on patient voicemail. Iris Vaca's 68-gene Custom Cancer Panel through [employer] was negative for a pathogenic variant. Please see [employer] message for further discussion. ASHKAN Chaudhary Licensed, Certified Genetic Counselor documented in this encounter [facility] 07-16-2023 Note HNO ID: [id number] Author: Homa Pace LGC Service: ? Author Type: Genetic Counselor Type: Progress Notes Filed: 07/16/2023 12:46 PM Note Text: [facility] Consultation Note Genetic Counselor: Homa Pace MS, [facility] [place]: Iris Vaca Patient Name and confirmed at initiation of visit HIGH LEVEL SUMMARY: The patient's family history is potentially suggestive of a hereditary ovarian cancer syndrome. The patient provided informed consent for 68-gene Custom Cancer Panel through [employer]. Results are expected in 2-3 weeks. IDENTIFICATION AND CHIEF COMPLAINT: Dr. Regine Peña requested a consultation for genetic counseling and risk assessment for Iris Vaca, a 42 year old female, for discussion of her family history of breast cancer and ovarian cancer. She presents to clinic today to discuss the possibility of a genetic predisposition to cancer, and to further clarify her risks, as well as her family members' risks for cancer. HISTORY OF PRESENT ILLNESS: Iris Vaca is a 42 year old female with no personal history of cancer. PAST MEDICAL HISTORY Diagnosis Date NEGATIVE MEDICAL HISTORY PAST SURGICAL HISTORY Procedure Laterality Date DELIVERY ONLY 2008, 2011 , low transverse EXTRACTION, ERUPTED TOOTH OR EXPOSED ROOT (ELEVATION AND/OR FORCEPS REMOVAL) CANCER SURVEILLANCE HISTORY: Mammograms: Yes Breast MRI's: No Breast Biopsies: No Colonoscopy: No EGD: No GI Polyps: N/A Prostate Cancer surveillance: N/A Dermatology: Yes / annual REPRODUCTIVE HISTORY AND PERSONAL RISK ASSESSMENT FACTORS: Weight: Last 1 Encounter Wt Readings: Date: Wt: 06/01/2023 67.6 kg (149 lb) Height: Last 1 Encounter Ht Readings: Date: Ht: 06/01/2023 169.5 cm (5' 6.75) Uterus Intact: Yes Ovaries Intact: Yes SOCIAL HISTORY: Social History Tobacco Use Smoking status: Never Smokeless tobacco: Never Vaping Use Vaping Use: Never used Substance Use Topics Alcohol use: Yes Comment: Occasionally Drug use: No FAMILY HISTORY: We obtained a detailed, 4-generation family history. Significant diagnoses are listed below: FAMILY HISTORY Problem Relation Age of Onset Cancer Mother other (Other- multiple myeloma) Mother other (Ocular Myasthenia Gravis) Father Cancer Maternal Grandmother 60 Ovarian Cancer Heart Paternal Grandmother Diabetes Paternal Grandmother Heart Paternal Grandfather [place] Breast Cancer Maternal Aunt 44 A copy of the patient's pedigree will be available under the scanned documents tab following today's visit. GENETIC COUNSELING RISK ASSESSMENT, DISCUSSION, AND SUGGESTED FOLLOW UP: We reviewed the natural history and genetic etiology of sporadic, familial and hereditary cancer syndromes. The patient's family history is potentially suggestive of: a hereditary cancer syndrome The patient meets NCCN HBOC testing criteria since her maternal grandmother had a personal history of ovarian cancer. We discussed that identification of a hereditary cancer syndrome may help her care providers tailor her medical management. If a mutation is detected, the National Comprehensive Cancer Network and/or expert opinion recommendations could include increased cancer surveillance and prophylactic surgery options. If a mutation is detected, the patient will be referred back to the referring provider and to any additional appropriate care providers to discuss the relevant options. Inheritance of hereditary cancer syndromes was discussed with the patient. If a mutation is not found in the patient, this will decrease the likelihood of a hereditary cancer syndrome for the patient, however it cannot rule it out as the explanation for the family history of cancer. Cancer surveillance options would be discussed for the patient according to the appropriate standard National Comprehensive Cancer Network and [place] [employer] guidelines, with consideration of their personal and family history risk factors. In this case, the patient will be referred back to their care providers for discussions of management. After considering the risks, benefits, and limitations, the patient chose to pursue and provided informed consent for the following testin-gene Custom Cancer Panel through [employer]. The 68-gene Custom Cancer Panel includes ANKRD26, APC, LUPE, AXIN2, BAP1, BARD1, BMPR1A, BRCA1, BRCA2, BRIP1, CDH1, CDK4, CDKN2A, CEBPA, CHEK2, CTNNA1, DDX41, DICER1, ELANE, EPCAM, ETV6, FH, FLCN, GATA2, GREM1, HOXB13, MAX, MBD4, MEN1, MET, MITF, MLH1, MSH2, MSH3, MSH6, MUTYH, NF1, NTHL1, PALB2, PMS2, POLD1, POLE, POT1, PTCH1, PTEN, RAD51C, RAD51D, RET, RTEL1, RUNX1, SAMD9, SAMD9L, SDHA, SDHAF2, SDHB, SDHC, SDHD, SMAD4, SMARCA4, STK11, TERC, TERT, TINF2, UEWM238, TP53, TSC1, TSC2, and VHL. The Custom Cancer Panel lo (more content not included)... [facility] 07-16-2023 History of Present illness Narrative Images from the original note were not included. [facility] Consultation Note Genetic Counselor: Homa Pace, MS, [facility] [place]: Iris Vaca Patient Name and confirmed at initiation of visit HIGH LEVEL SUMMARY: The patient's family history is potentially suggestive of a hereditary ovarian cancer syndrome. The patient provided informed consent for 68-gene Custom Cancer Panel through [employer]. Results are expected in 2-3 weeks. IDENTIFICATION AND CHIEF COMPLAINT: Dr. Regine Peña requested a consultation for genetic counseling and risk assessment for Iris Vaca, a 42 year old female, for discussion of her family history of breast cancer and ovarian cancer. She presents to clinic today to discuss the possibility of a genetic predisposition to cancer, and to further clarify her risks, as well as her family members' risks for cancer. HISTORY OF PRESENT ILLNESS: Iris Vaca is a 42 year old female with no personal history of cancer. PAST MEDICAL HISTORY Diagnosis Date NEGATIVE MEDICAL HISTORY PAST SURGICAL HISTORY Procedure Laterality Date DELIVERY ONLY 2008, 2011 , low transverse EXTRACTION, ERUPTED TOOTH OR EXPOSED ROOT (ELEVATION AND/OR FORCEPS REMOVAL) CANCER SURVEILLANCE HISTORY: Mammograms: Yes Breast MRI's: No Breast Biopsies: No Colonoscopy: No EGD: No GI Polyps: N/A Prostate Cancer surveillance: N/A Dermatology: Yes / annual REPRODUCTIVE HISTORY AND PERSONAL RISK ASSESSMENT FACTORS: Weight: Last 1 Encounter Wt Readings: Date: Wt: 06/01/2023 67.6 kg (149 lb) Height: Last 1 Encounter Ht Readings: Date: Ht: 06/01/2023 169.5 cm (5' 6.75) Uterus Intact: Yes Ovaries Intact: Yes SOCIAL HISTORY: Social History Tobacco Use Smoking status: Never Smokeless tobacco: Never Vaping Use Vaping Use: Never used Substance Use Topics Alcohol use: Yes Comment: Occasionally Drug use: No FAMILY HISTORY: We obtained a detailed, 4-generation family history. Significant diagnoses are listed below: FAMILY HISTORY Problem Relation Age of Onset Cancer Mother other (Other- multiple myeloma) Mother other (Ocular Myasthenia Gravis) Father Cancer Maternal Grandmother 60 Ovarian Cancer Heart Paternal Grandmother Diabetes Paternal Grandmother Heart Paternal Grandfather [place] Breast Cancer Maternal Aunt 44 A copy of the patient's pedigree will be available under the scanned documents tab following today's visit. GENETIC COUNSELING RISK ASSESSMENT, DISCUSSION, AND SUGGESTED FOLLOW UP: We reviewed the natural history and genetic etiology of sporadic, familial and hereditary cancer syndromes. The patient's family history is potentially suggestive of: a hereditary cancer syndrome The patient meets NCCN HBOC testing criteria since her maternal grandmother had a personal history of ovarian cancer. We discussed that identification of a hereditary cancer syndrome may help her care providers tailor her medical management. If a mutation is detected, the National Comprehensive Cancer Network and/or expert opinion recommendations could include increased cancer surveillance and prophylactic surgery options. If a mutation is detected, the patient will be referred back to the referring provider and to any additional appropriate care providers to discuss the relevant options. Inheritance of hereditary cancer syndromes was discussed with the patient. If a mutation is not found in the patient, this will decrease the likelihood of a hereditary cancer syndrome for the patient, however it cannot rule it out as the explanation for the family history of cancer. Cancer surveillance options would be discussed for the patient according to the appropriate standard National Comprehensive Cancer Network and [place] Cancer [employer] guidelines, with consideration of their personal and family history risk factors. In this case, the patient will be referred back to their care providers for discussions of management. After considering the risks, benefits, and limitations, the patient chose to pursue and provided informed consent for the following testin-gene Custom Cancer Panel through [employer]. The 68-gene Custom Cancer Panel includes ANKRD26, APC, LUPE, AXIN2, BAP1, BARD1, BMPR1A, BRCA1, BRCA2, BRIP1, CDH1, CDK4, CDKN2A, CEBPA, CHEK2, CTNNA1, DDX41, DICER1, ELANE, EPCAM, ETV6, FH, FLCN, GATA2, GREM1, HOXB13, MAX, MBD4, MEN1, MET, MITF, MLH1, MSH2, MSH3, MSH6, MUTYH, NF1, NTHL1, PALB2, PMS2, POLD1, POLE, POT1, PTCH1, PTEN, RAD51C, RAD51D, RET, RTEL1, RUNX1, SAMD9, SAMD9L, SDHA, SDHAF2, SDHB, SDHC, SDHD, SMAD4, SMARCA4, STK11, TERC, TERT, TINF2, TVWS874, TP53, TSC1, TSC2, and VHL. The Custom Cancer Panel looks at genes associated with inherited breast, ovarian, pancreatic, prostate, colon, uterine, kidney, stomach, endocrine, and hematologic (blood) cancers as well as inherited colon polyp and melanoma syndromes. We discussed that an NGS panel can rarely result in an unexpected finding which may or may not be related to the presenting phenotype. We discussed that [employer] may contact the patient by text or email regarding billing. The patient should watch for this communication and respond promptly. The patient should contact [employer] directly with any billing questions (ph. [phone]). Per the patient's request, we will contact her by telephone to discuss these results. A follow up genetic counseling visit will be scheduled if requested. The patient was seen for a total of 20 minutes, greater than 50% of which was spent [id number] counseling. This plan is being carried out under the oversight of Dr. Pushpa Larios. This note will also be sent to the referring provider via the electronic medical record. Homa Pace MS, [facility] [place], Licensed, Certified Genetic Counselor [facility] CC: Dr. Regine Sheets documented in this encounter [facility] 06-01-2023 History of Present illness Narrative Iris is a 42 year old who presents for an annual gynecologic exam without complaints. Menses: cycles every 24 days and 5-7 days of flow. Contraception: vasectomy HPV vaccine: No Last Pap: 11/16/2019 normal HPV: 11/15/2019 negative History of abnormal pap: No Last mammogram: yes Sexually active: Yes OB History T2 L2 SAB0 IAB0 Ectopic0 Multiple0 Live Births2 Comment: First - 2 vessel cord, SGA, breech so had c/s. Had first trimester bleeding. Case Assembler History LMP: 05/18/2023 (Exact Date), Having periods Age at Menarche: Age at First : Age at Menopause: Case Assembler History Comments: Sexual Activity: Yes; Male Contraception: Vasectomy PAST MEDICAL HISTORY Diagnosis Date NEGATIVE MEDICAL HISTORY PAST SURGICAL HISTORY Procedure Laterality Date DELIVERY ONLY 2008, 2011 , low transverse EXTRACTION, ERUPTED TOOTH OR EXPOSED ROOT (ELEVATION AND/OR FORCEPS REMOVAL) FAMILY HISTORY Problem Relation Age of Onset Cancer Mother other (Other- multiple myeloma) Mother other (Ocular Myasthenia Gravis) Father Cancer Maternal Grandmother 60 Ovarian Cancer Heart Paternal Grandmother Diabetes Paternal Grandmother Heart Paternal Grandfather [place] Breast Cancer Maternal Aunt 44 SOCIAL HISTORY Social History Tobacco Use Smoking status: Never Smokeless tobacco: Never Vaping Use Vaping Use: Never used Substance Use Topics Alcohol use: Yes Comment: Occasionally Drug use: No REVIEW OF SYSTEMS Abdomen: No abdominal pain, nausea, vomiting, diarrhea, or constipation. No bloating, early satiety, indigestion, or increased flatulence. Bladder: No dysuria, gross hematuria, urinary frequency, urinary urgency, or incontinence. Breast: No breast lumps, nipple d/c, overlying skin changes, redness or skin retraction. Allergies and current medication updated:Yes EXAM: BP 108/64 Ht 5' 6.75 (1.70m) Wt 149 lb (67.6kg) LMP 05/18/2023 BMI 23.52 kg/(m^2). GENERAL: pleasant, female in no apparent distress HEENT: Normocephalic, atraumatic, mucus membranes moist, and no lesions NECK: Supple, full range of motion, no adenopathy, and thyroid normal DERMATOLOGY: Normal, without lesions, non-icteric, and non-hirsute BREAST: soft, non-tender, symmetric, no dominant mass, normal nipple-areolar complex, no lymphadenopathy, and no nipple discharge CHEST: Normal inspiratory effort ABDOMEN: soft, non-tender, and no masses PELVIC: external genitalia normal, normal Bartholin's glands, urethra, [place]'s glands, no vulvar lesions, no cervical lesions, good vaginal support, physiologic discharge present, normal appearing perineal body and perianal region BIMANUAL: uterus normal size, shape and consistency, no adnexal masses, and non-tender RECTOVAGINAL: deferred. NEURO: alert and oriented x3,exam grossly non-focal EXTREMITIES: normal ASSESSMENT/PLAN: 1) Health maintenance: Pap/HPV up to date. Mammogram ordered. 2) Contraception: vasectomy. Contraceptive options reviewed and information provided. 3) STD screening: Declined STD check. 4) Follow up one year or sooner as needed Regine Peña MD documented in this encounter [facility] 04-04-2023 Nurse Note AVS and prescriptions reviewed with Iris Vaca. All questions answered and IV removed without difficulty. Iris Vaca confirms that they have all belongings. Pt escorted to front of ED Lobby to go home. [facility] [place] 04-04-2023 Miscellaneous Notes AVS and prescriptions reviewed with Iris Vaca. All questions answered and IV removed without difficulty. Iris Vaca confirms that they have all belongings. Pt escorted to front of ED Lobby to go home. Contacted by primary patient responding well to IV abx and is set to discharge with antibiotic regimen per ID and will follow up with ID as outpatient. No further recommendations from podiatry standpoint and agree with plan. Our service will sign off at this time. Should her condition deteriorate or her clinical picture change, please feel free to contact the podiatry resident balloon sander. We will be happy to become involved in her care again. This patient was appropriately risk stratified for observation level of care and placed on an observation protocol in our Clinical Decision Unit. The patient's intensity of service and severity of illness was appropriately aligned with observation level of care. MDM Stingray sting on 03/27 due to cellulitis and has seen podiatry and ID and atb now changed atb per ID recommendations. This am no further spread but has some central bruising on dorsal foot. Initially given cefdiner and doxy but no imrpovement now zyvox and cefipime. And ID wants her to be DCd on Levaquin and Linazolid. She also received one dose of vanco. Physical Exam: Still bruising/necrosis and swelling to dorsum but not extended and sx warmth to feet now better. Disposition: Discharge The patient has met appropriate clinical criteria to be discharged from this CDU observation protocol. Reasons to return to the ED were discussed with the patient. The patient will be instructed to follow up with their primary care physician or specialist; if the patient does not have a physician to see in follow up, our CDU clinical case worker will assist the patient with their follow up needs. Clinical Impression: 1) stingray sting with infection and cellulitis 2) I saw and evaluated the patient with JUAN. I provided a substantive portion of the care for this patient. I personally performed all aspects of the medical decision making for this encounter. I have reviewed and verified this with the JUAN so that it accurately reflects our care. I have personally spent 31 minutes or greater in discharge time which includes: final examination, preparing discharge instructions, discharge summary, prescriptions, and ambulatory referrals. DEPARTMENT OF EMERGENCY MEDICINE CHIEF COMPLAINT Chief Complaint Patient presents with Foot Injury HISTORY OF PRESENT ILLNESS Iris Vaca is a 42 y.o. female was appropriately risk stratified for observation level of care and was placed on the EDOU Cellulitis protocol Patient has no medical history and does not take prescribed medications. Patient was visiting and help him head on do when she had a stingray injury. She soaked in hot water and injury seemed to not be very significant. This past Wednesday, March 27 she started to have a rash to her posterior ankle. This slowly seemed to improve although she started to have a lot of dorsal swelling and skin discoloration. She saw Dermatology on Wednesday the and was given doxycycline to which she started that day. She also started cefdinir a day later. While at the infection control nurse she also had wound culture and Gram stain and both were negative. X-ray was also negative. Patient was re-evaluated and sent to the ER for evaluation d/t no changes. After seen by Podiatry patient was placed in observation unit. Tetanus was updated last month Podiatry Recommendations: Patient seen and examined at bedside. No acute surgical intervention. XRs without retained foreign body. MRI pending. Possible further intervention pending MRI results. Would continue IV abx for cellulitis given minimal improvement on orals. Could consider ID consult. Wound Care: None Antibiotics: per primary Consults: ID Imaging: MRI Weight bearing Status: WBAT REVIEW OF SYSTEMS Review of Systems Constitutional: Negative for chills and fever. Respiratory: Negative for shortness of breath. Cardiovascular: Negative for chest pain. Gastrointestinal: Negative for nausea and vomiting. Neurological: Negative for tingling. All other systems reviewed and are negative. PAST MEDICAL HISTORY Past Medical History Reviewed, Contributory Findings Include: No past medical history on file. SURGICAL HISTORY Past Surgical History Reviewed, Contributory Findings Include: Past Surgical History: Procedure Laterality Date DELIVERY ONLY 09/23/2012 Laterality: Midline; Surgeon: Rebekah Castillo MD; Location: [facility] LD OR SECTION, LOW TRANSVERSE MEDICATIONS GIVEN IN THE ED Medications Vancomycin HCl in NaCl (Vancocin) 1,250 mg 287.5 ml premade IVPB (has no administration in time range) ALLERGIES No Known Allergies FAMILY HISTORY Past Family History Reviewed, Contributory Findings Include: Family History Problem Relation Age of Onset Breast Cancer Maternal Aunt 45 Ovarian Cancer Maternal Grandmother 60 Myasthenia Gravis, Ocular Father SOCIAL HISTORY Social History Socioeconomic History Marital status: Spouse name: Not on file Number of children: Not on file Years of education: Not on file Highest education level: Not on file Occupational History Not on file Tobacco Use Smoking status: Never Smokeless tobacco: Never Substance and Sexual Activity Alcohol use: Yes Alcohol/week: 0.0 standard drinks of alcohol Drug use: No Sexual activity: Yes Partners: Male control/protection: Pill Other Topics Concern Not on file Social History Narrative Not on file Social Determinants of Health Financial Resource Strain: Not on file Food Insecurity: Not on file Transportation Needs: Not on file Physical Activity: Not on file Stress: Not on file Social Connections: Not on file Intimate Partner Violence: Not on file Housing Stability: Not on file PHYSICAL EXAM BP 120/77 Pulse 86 Temp 98 F (36.7 C) (Oral) Resp 14 Ht 1.676 m (5' 6) SpO2 98% BMI 21.79 kg/m Smoking Status Never Physical Exam Vitals and nursing note reviewed. Constitutional: Appearance: She is well-developed. She is not ill-appearing or toxic-appearing. HENT: Head: Normocephalic and atraumatic. Eyes: General: Lids are normal. Extraocular Movements: Extraocular movements intact. Conjunctiva/sclera: Conjunctivae normal. Cardiovascular: Rate and Rhythm: Normal rate and regular rhythm. Heart sounds: Normal heart sounds. Pulmonary: Effort: Pulmonary effort is normal. No respiratory distress. Breath sounds: Normal breath sounds. No wheezing, rhonchi or rales. Chest: Chest wall: No deformity. Abdominal: General: There is no distension. There are no signs of injury. Palpations: Abdomen is soft. Tenderness: There is no abdominal tenderness. Musculoskeletal: Cervical back: Normal range of motion and neck supple. Comments: Dorsum of right foot is with swelling noted, skin color change to bruising not significantly warm touch. Small scab formation. No crepitance. No eschar. DP pulse faint secondary to edema. Faint rash to the posterior ankle. Range of motion of the extremity intact. Erysipelas versus cellulitis Skin: General: Skin is warm and dry. Neurological: General: No focal deficit present. Mental Status: She is alert. Cranial Nerves: No facial asymmetry. Gait: Gait is intact. Psychiatric: Mood and Affect: Mood normal. Speech: Speech normal. Behavior: Behavior normal. Behavior is cooperative. EDOU COURSE & MEDICAL DECISION MAKING Risk stratification appropriate for observation level of care. Patient was placed in EDOU on the Cellulitis protocol. Patient age greater than 64y/o? NO I reviewed the patients' medical records and nursing notes and noted their allergies, past medical history, and previous visits. The reviewed showed: Results for orders placed or performed during the hospital encounter of 04/02/23 CBC AND ELECTRONIC DIFF Result Value Ref Range WBC Count 6.96 3.99 - 11.19 K/uL RBC Count 4.08 3.91 - 5.04 M/uL Hemoglobin 12.9 11.4 - 15.2 g/dL Hematocrit 38.3 34.9 - 44.3 % Mean Cell Volume 93.9 79.6 - 97.7 fL Mean Cell Hgb 31.6 25.9 - 33.9 pg Mean Cell Hgb Conc 33.7 31.4 - 35.9 g/dL RBC Distribution 12.2 10.8 - 14.9 % Platelet Count 284 150 - 393 K/uL Mean Platelet Volume 10.5 8.5 - 12.2 fL DIFF STATUS Electronic Differential Segs + Bands Auto 68.4 % Immature Grans % 0.1 % Lymphocyte % Auto 21.7 % Monocyte % Auto 7.6 % Eosinophil % Auto 1.6 % Basophil % Auto 0.6 % Nucleated RBC 0.0 <=0.2 /100 WBC Segs + Bands,Absolute Auto 4.76 1.64 - 7.28 K/uL Immature Grans Absolute <0.04 <=0.08 K/uL Abs Lymph Auto 1.51 1.16 - 3.51 K/uL Abs Kings Auto 0.53 0.22 - 0.87 K/uL Abs Eos Auto 0.11 0.00 - 0.42 K/uL Abs Baso Auto 0.04 0.00 - 0.15 K/uL The patient received the following interventions in the ED to date: Labs as indicated above. Vancomycin ; Xray. On reassessment the patient's response to the interventions was no change in symptoms. Plan: Monitor and repeat labs as appropriate, home medications ordered, area demarcated as appropriate, Vancomycin, MRI foot ordered. Infectious Disease consults While in the EDOU we will continue to check, monitor and reassess patient and alter our plan as clinically appropriate. I have discussed this plan of care with Dr. Ward , the EDOU attending physician, who is in agreement with this plan. This is a shared visit on 04/02/2023. MRI FOOT RIGHT WITH AND WITHOUT CONTRAST Final Result IMPRESSION: 1. There is extensive cellulitis in the dorsal aspect of the foot surrounding a more central area of diminished enhancement. There is likely corresponds to cellulitis surrounding in the area of ischemia or developing phlegmonous changes. No obvious foreign body is detected. 2. There is myositis primarily involving the muscles surrounding the second and third metatarsal shafts. 3. There is tenosynovitis of the extensor digitorum tendons. 4. No gross evidence of osteomyelitis. FOOT RIGHT 3 VIEWS Final Result IMPRESSION: Soft tissue swelling. No radiopaque foreign body or acute osseous abnormality. US SOFT TISSUE EXTREMITY Final Result PT VANCOMYCIN ORDERED Q12 AND DISCUSSED WITH PHARMACIST. WAITING ON INFECTIOUS DISEASE AND PODIATRY REC'S documented in this encounter [facility] 04-04-2023 Emergency department Note ED CM Observation Note After review of chart and discussion with CDU team in morning rounds, patient's discharge plan is pending ID and Podiatry final recs. Patient ok for discharge and will follow up with ID. Should discharge needs arise please contact floatman. Mallory CAMPBELL RN floatman [facility] 04-04-2023 Emergency department Note ED CM Observation Note After review of chart and discussion with CDU team in morning rounds, patient's discharge plan is pending ID and Podiatry final recs. Patient ok for discharge and will follow up with ID. Should discharge needs arise please contact floatman. Mallory CAMPBELL RN floatman This patient was appropriately risk stratified for observation level of care and placed on an observation protocol in our Clinical Decision Unit. The patient's intensity of service and severity of illness was appropriately aligned with observation level of care. MDM Patient with progressive foot pain despite doxycycline/cefdinir after stingray injury March 27. Well-appearing without sepsis. Clinical exam most suggestive of cellulitis. Not suggestive of abscess or necrotizing fasciitis. MRI suggestive of cellulitis versus mass head is without foreign body. Patient improved overnight in ED observation on vancomycin in terms of pain and swelling. Podiatry consultation obtained. Do not anticipate surgical intervention. Completion of infectious disease consultation pending. Physical Exam: Patient alert oriented, well appearing, partially 10 cm area of erythema induration warmth without fluctuance or crepitance over the dorsal aspect of the right foot with central area consistent with healing puncture wound. Minimal tenderness. No apparent joint or bone involvement. Neurovascularly intact. No calf tenderness or asymmetry. Disposition: Discharge The patient has met appropriate clinical criteria to be discharged from this CDU observation protocol pending recommendations for antibiotics and follow-up from infectious diseases. Alternatively, ID may recommend hospitalization given prior failure of outpatient antibiotics and location and severity of infection. Clinical Impression: 1) foot cellulitis, post stingray puncture 2) foot myositis I saw and evaluated the patient with JUAN. I provided a substantive portion of the care for this patient. I personally performed all aspects of the medical decision making for this encounter. I have reviewed and verified this with the JUAN so that it accurately reflects our care. Delon Brown MD 04/03/23 1228 ED CM Observation Note After review of chart and discussion with CDU team in morning rounds, patient's discharge plan is pending ID consult and symptom control. Should discharge needs arise please contact floatman. Mallory CAMPBELL RN floatman [phone] Off unit to MRI dEPARTMENT of Emergency Medicine CHIEF COMPLAINT Foot Injury HPI Iris Vaca is a 42 y.o. female who presents with possible retained foreign body to right foot dorsum complicated by cellulitis. She was near [facility] on March 19, walking in several inches of seawater when she was stung by a stingray to the right foot dorsum. Pain initially improved last week, but on Wednesday, she had increased swelling. Dermatology saw her Wednesday and she started doxycycline on Wednesday and cefdinir on Wednesday without significant relief. No fever, chest pain, dyspnea, vomiting. She's had an xray and gram stain performed. Tetanus updated within the past month. REVIEW OF SYSTEMS Review of Systems Constitutional: Negative for fever. Respiratory: Negative for cough and shortness of breath. Cardiovascular: Negative for chest pain. Gastrointestinal: Negative for abdominal pain, nausea and vomiting. Musculoskeletal: Positive for arthralgias. Skin: Positive for wound. All other systems reviewed and are negative. PAST MEDICAL HISTORY No past medical history on file. SURGICAL HISTORY Past Surgical History: Procedure Laterality Date DELIVERY ONLY 09/23/2012 Laterality: Midline; Surgeon: Rebekah Castillo MD; Location: [facility] LD OR SECTION, LOW TRANSVERSE CURRENT MEDICATIONS No current facility-administered medications for this encounter. Current Outpatient Medications Medication Sig Dispense Refill Cefdinir (OMNICEF) 300 MG capsule Take 1 capsule by mouth every 12 hours. desogestrel-ethinyl estradiol (APRI) 0.15-30 MG-MCG Tab take 1 tablet by mouth daily. 28 tablet 11 Doxycycline monohydrate 100 MG capsule Take 1 capsule by mouth every 12 hours. ALLERGIES No Known Allergies FAMILY HISTORY Family History Problem Relation Age of Onset Breast Cancer Maternal Aunt 45 Ovarian Cancer Maternal Grandmother 60 Myasthenia Gravis, Ocular Father SOCIAL HISTORY Social History Socioeconomic History Marital status: Spouse name: Not on file Number of children: Not on file Years of education: Not on file Highest education level: Not on file Occupational History Not on file Tobacco Use Smoking status: Never Smokeless tobacco: Never Substance and Sexual Activity Alcohol use: Yes Alcohol/week: 0.0 standard drinks of alcohol Drug use: No Sexual activity: Yes Partners: Male control/protection: Pill Other Topics Concern Not on file Social History Narrative Not on file Social Determinants of Health Financial Resource Strain: Not on file Food Insecurity: Not on file Transportation Needs: Not on file Physical Activity: Not on file Stress: Not on file Social Connections: Not on file Intimate Partner Violence: Not on file Housing Stability: Not on file PHYSICAL EXAM BP 120/77 Pulse 86 Temp 98 F (36.7 C) (Oral) Resp 14 Ht 1.676 m (5' 6) SpO2 98% BMI 21.79 kg/m Smoking Status Never Physical Exam Vitals and nursing note reviewed. Constitutional: Appearance: Normal appearance. HENT: Nose: No rhinorrhea. Eyes: General: No scleral icterus. Right eye: No discharge. Left eye: No discharge. Cardiovascular: Rate and Rhythm: Normal rate and regular rhythm. Pulmonary: Effort: Pulmonary effort is normal. Breath sounds: Normal breath sounds. Abdominal: General: Abdomen is flat. Palpations: Abdomen is soft. Musculoskeletal: Comments: Right foot dorsum is swollen with areas of ecchymosis and ttp without crepitance. No lymphangitic streaking. No short arc tenderness or tenderness to the right ankle. Skin: General: Skin is warm. Neurological: General: No focal deficit present. Mental Status: She is alert and oriented to person, place, and time. ED COURSE & MEDICAL DECISION MAKING Right foot cellulitis, r/o retained fb Medical Decision Making Will consult podiatry, obtain labs (no leukocytosis), obtain MRI if bedside ultrasound does not demonstrate retained FB (ultrasound showed cobblestoning c/w cellulitis but no definitive fb), and place in [facility] on vanc. Amount and/or Complexity of Data Reviewed Labs: ordered. Decision-making details documented in ED Course. Radiology: ordered. Risk Decision regarding hospitalization. Mary Sinha DO 04/02/23 1306 Mary Sinha DO 04/02/23 1332 Pt presents with right foot pain related to a sting ray incident on 03/19. Pt was given ATBs Wednesday and Wednesday this week related to increased pain to the foot; possible cellulitis vs retained nahum. Pt was seen by infection control nurse where bacterial wound cultures were negative and xrays were negative. documented in this encounter [facility] [place] 04-04-2023 Plan of care note Contacted by primary patient responding well to IV abx and is set to discharge with antibiotic regimen per ID and will follow up with ID as outpatient. No further recommendations from podiatry standpoint and agree with plan. Our service will sign off at this time. Should her condition deteriorate or her clinical picture change, please feel free to contact the podiatry resident balloon sander. We will be happy to become involved in her care again. [facility] [place] Work Phone: 04-04-2023 History of Present illness Narrative ID progress note HPI: pt reports her foot is not painful while laying in bed. She has not been ambulating much; still with tightness and some edema, although color is improved. Review of Systems Constitutional: Negative for fatigue and fever. Cardiovascular: Negative for chest pain. Gastrointestinal: Negative for abdominal pain, diarrhea, nausea and vomiting. Genitourinary: Negative for dysuria. Musculoskeletal: Positive for myalgias. Temp: [98 F (36.7 C)-98.3 F (36.8 C)] 98 F (36.7 C) Pulse (Heart Rate): [70-79] 71 Resp Rate: [14-18] 18 BP: (98-117)/(57-69) 107/69 O2 Sat (%): [96 %-99 %] 97 % Physical Exam Vitals reviewed. Constitutional: Appearance: Normal appearance. Cardiovascular: Rate and Rhythm: Normal rate and regular rhythm. Pulmonary: Effort: Pulmonary effort is normal. No respiratory distress. Breath sounds: Normal breath sounds. Abdominal: General: Bowel sounds are normal. Musculoskeletal: Left lower leg: No edema. Comments: Right foot with less edema. Erythema fairly resolved. Dark purple necrotic areas lightening up as well. Able to wiggle toes and flex/extend ankle joint although it feels tight Neurological: Mental Status: She is alert. Lab Results Component Value Date SODIUM 139 04/03/2023 POTASSIUM 4.3 04/03/2023 CHLORIDE 108 04/03/2023 CO2 27 04/03/2023 BUN 11 04/03/2023 CREATSERUM 0.81 04/03/2023 Lab Results Component Value Date WBC 5.52 04/03/2023 HGB 13.3 04/03/2023 HCT 39.7 04/03/2023 PLATELET 266 04/03/2023 MCV 95.0 04/03/2023 ceFEPIme (MAXIPIME) IVPB 2 g Intravenous Q8HNS Linezolid 600 mg Oral Q12H Assessment and Plan: 42yo female s/p sting ray bite on 03.23.23 Exam had progressed about 1 week after bite. Prescribed cefdinir/doxy, which is great coverage. Started vanco/linezolid and cefepime. Cefepime for pseudomonal coverage. Exam appears improved from pictures. MRI noted. Will discharge home on Linezolid 600mg PO BID and Levaquin 750mg PO daily and set her up for telehealth visit with me on April 08 at 8:30 AM. Our clinic staff will schedule this on Wednesday once they are back from the holiday weekend. I told her to also MyChart me with any issues Cece Gilmore MD documented in this encounter [facility] [place] 04-04-2023 Progress note Formatting of t his note might be different from the original. This patient was appropriately risk stratified for observation level of care and placed on an observation protocol in our Clinical Decision Unit. The patient's intensity of service and severity of illness was appropriately aligned with observation level of care. MDM Stingray sting on 03/27 due to cellulitis and has seen podiatry and ID and atb now changed atb per ID recommendations. This am no further spread but has some central bruising on dorsal foot. Initially given cefdiner and doxy but no imrpovement now zyvox and cefipime. And ID wants her to be DCd on Levaquin and Linazolid. She also received one dose of vanco. Physical Exam: Still bruising/necrosis and swelling to dorsum but not extended and sx warmth to feet now better. Disposition: Discharge The patient has met appropriate clinical criteria to be discharged from this CDU observation protocol. Reasons to return to the ED were discussed with the patient. The patient will be instructed to follow up with their primary care physician or specialist; if the patient does not have a physician to see in follow up, our CDU clinical case worker will assist the patient with their follow up needs. Clinical Impression: 1) stingray sting with infection and cellulitis 2) I saw and evaluated the patient with JUAN. I provided a substantive portion of the care for this patient. I personally performed all aspects of the medical decision making for this encounter. I have reviewed and verified this with the JUAN so that it accurately reflects our care. I have personally spent 31 minutes or greater in discharge time which includes: final examination, preparing discharge instructions, discharge summary, prescriptions, and ambulatory referrals. [facility] [place] Work Phone: 04-03-2023 Physician Emergency department Note This patient was appropriately risk stratified for observation level of care and placed on an observation protocol in our Clinical Decision Unit. The patient's intensity of service and severity of illness was appropriately aligned with observation level of care. MDM Patient with progressive foot pain despite doxycycline/cefdinir after stingray injury March 27. Well-appearing without sepsis. Clinical exam most suggestive of cellulitis. Not suggestive of abscess or necrotizing fasciitis. MRI suggestive of cellulitis versus mass head is without foreign body. Patient improved overnight in ED observation on vancomycin in terms of pain and swelling. Podiatry consultation obtained. Do not anticipate surgical intervention. Completion of infectious disease consultation pending. Physical Exam: Patient alert oriented, well appearing, partially 10 cm area of erythema induration warmth without fluctuance or crepitance over the dorsal aspect of the right foot with central area consistent with healing puncture wound. Minimal tenderness. No apparent joint or bone involvement. Neurovascularly intact. No calf tenderness or asymmetry. Disposition: Discharge The patient has met appropriate clinical criteria to be discharged from this CDU observation protocol pending recommendations for antibiotics and follow-up from infectious diseases. Alternatively, ID may recommend hospitalization given prior failure of outpatient antibiotics and location and severity of infection. Clinical Impression: 1) foot cellulitis, post stingray puncture 2) foot myositis I saw and evaluated the patient with JUAN. I provided a substantive portion of the care for this patient. I personally performed all aspects of the medical decision making for this encounter. I have reviewed and verified this with the JUAN so that it accurately reflects our care. Delon Brown MD 04/03/23 3440 [facility] [place] Work Phone: 04-03-2023 Emergency department Note ED CM Observation Note After review of chart and discussion with CDU team in morning rounds, patient's discharge plan is pending ID consult and symptom control. Should discharge needs arise please contact floatman. Mallory CAMPBELL RN floatman [phone] [facility] [place] 04-03-2023 Consult note Associated Order (s): IP CONSULT TO INFECTIOUS DISEASE Images from the original note were not included. INFECTIOUS DISEASES CONSULT NOTE Referring MD: Delon Brown MD Admission Date: 04/02/2023 Reason for Consult: R foot wound Chief Complaint: Foot Injury Impression / Discussion: Stingray sting R foot myositis 42 year old female with no significant past medical history presenting to the hospital due to R foot wound/swelling/pain. She was stung by a stingray on 03/19 with initial symptoms of swelling, erythema, and tenderness which seemed to resolve moderately with local wound care. This last week patient has had increased symptoms and recently saw her infection control nurse who started her on Doxycycline / Cefdinir. Symptoms continued but with slow/slight improvement. It does appear that the foot has greatly improved from prior picture the patient has provided. Imaging demonstrating tenosynovitis and myositis. Initially sting / venom likely causing myositis / symptoms. Will cover with antimicrobials for possible superimposed infection. Would like to see continued improvement with parenteral antimicrobials prior to transition to oral therapy/discharge. Potential future oral therapy could include Levaquin + Linezolid. Recommendations: Diagnostics: Follow up podiatry recommendations s/p MRI foot Monitor for continued clinical improvement. Therapeutics: Ok to stop vancomycin & Doxycycline Cefepime 2 g Q 8 hours + Linezolid 600 mg BID - ordered by ID ID team 1 will continue to follow. History of Presenting Illness Iris Vaca is a 42 y.o. female presented on 04/02/2023 12:16 PM with no major past medical history presenting with a chief complaint of R foot pain / cellulitic changes. Patient was walking near [facility] on 03/19 in several inches of shallow water when she was stung by a stingray. The initial pain of the sting had improved last week, however, last Wednesday the patient started to have increased swelling when she saw her High School Football Coach on Wednesday. She was prescribed Doxycycline + Cefdinir on Wednesday. Tetanus updated last month. Over the week that patient has had continued swelling, erythema, tenderness (especially with dependant position and ambulation). However, patient does state she feel the symptoms have slowly and moderately improved over this last week on antimicrobials. Denies fevers, chills, chest pain, Sob, abdominal pain, N/V/D. Xray of the R foot with ST swelling. No radiopaque foreign body or acute osseous process. MRI shows extensive cellulitis. Myositis noted with no obvious foreign body. Tenosynovitis of the extensor digitorum tendons but no gross evidence of OM. Review of Systems - GENERAL: Patient denies fever, chills, weight loss, fatigue, night sweats EYES: Patient denies blurry vision, eye pain HENT: Patient denies headache, hearing loss, sore throat, dysphagia, sinus pain CARDIO: Patient denies chest pain, palpitations, orthopnea PULM: Patient denies shortness of breath, wheezing, cough, sputum, hemoptysis GI: Patient denies nausea, vomiting, diarrhea, abdominal pain, blood in stool : Patient denies urinary frequency, urgency, dysuria, urethral discharge MSK:R foot pain, swelling, and erythema SKIN: Patient denies rash, redness HEME: Patient denies easy bruising, bleeding Past Medical History No past medical history on file. Past Surgical History Past Surgical History: Procedure Laterality Date DELIVERY ONLY 09/23/2012 Laterality: Midline; Surgeon: Rebekah Castillo MD; Location: [facility] OR SECTION, LOW TRANSVERSE Past Social History Social History Socioeconomic History Marital status: Tobacco Use Smoking status: Never Smokeless tobacco: Never Substance and Sexual Activity Alcohol use: Yes Alcohol/week: 0.0 standard drinks of alcohol Drug use: No Sexual activity: Yes Partners: Male control/protection: Pill Family History Family History Problem Relation Age of Onset Breast Cancer Maternal Aunt 45 Ovarian Cancer Maternal Grandmother 60 Myasthenia Gravis, Ocular Father Allergies: No Known Allergies Physical Examination Vital Signs (24hrs): Temp: [97.9 F (36.6 C)-98 F (36.7 C)] 98 F (36.7 C) Pulse (Heart Rate): [70-86] 70 Resp Rate: [14-16] 16 BP: (102-120)/(63-77) 102/63 O2 Sat (%): [97 %-100 %] 97 % Weight: [67.9 kg (149 lb 11.2 oz)] 67.9 kg (149 lb 11.2 oz) GEN: Awake, resting comfortably EYES: EOMI, no scleral icterus HENT: MMM. No oral lesions. Fair dentition. NECK: Supple, no cervical lymphadenopathy or meningismus. CARDIO: RRR, no murmur. PULM/CHEST: CTAB. No increased work of breathing ABD: Soft, not tender or distended MSK: R foot swelling with some discoloration as below. SKIN: No rashes. Hands and fingers appear normal. No stigmata of endocarditis. NEURO: AOx3. Moves all four extremities. R foot Diagnostic Data: CBC Lab Results Component Value Date WBC 5.52 04/03/2023 HGB 13.3 04/03/2023 HCT 39.7 04/03/2023 PLATELET 266 04/03/2023 MCV 95.0 04/03/2023 Lab Results Component Value Date RBCDISTRIBU 12.4 04/03/2023 GRNLOCYT 55.7 04/03/2023 LYMPHOCYT 29.0 04/03/2023 MONOCYTELEC 11.1 04/03/2023 EOSINOPHILS 3.3 04/03/2023 BASOPHILS 0.7 04/03/2023 GRNLOCTYABS 5.9 08/31/2013 LYMPHOCYTABS 1.60 04/03/2023 MONOSABSOLU 0.7 08/31/2013 EOSINOPHLABS 0.18 04/03/2023 BASOPHILSABS 0.0 08/31/2013 PLATELET 266 04/03/2023 MPV 10.4 04/03/2023 BMP: Lab Results Component Value Date SODIUM 139 04/03/2023 POTASSIUM 4.3 04/03/2023 CHLORIDE 108 04/03/2023 CO2 27 04/03/2023 BUN 11 04/03/2023 CREATSERUM 0.81 04/03/2023 GLUCOSE 97 04/03/2023 Hepatic: Lab Results Component Value Date ALT 13 04/03/2023 AST 18 04/03/2023 ALKPHOS 39 04/03/2023 BILITOTAL 0.6 04/03/2023 BILIDIRECT LAB CANC-Specimen not received in laboratory. 07/26/2009 Microbiology and Other Significant ID Labs: (personally reviewed) Relevant Data: Cultures: Imaging: (personally reviewed) Mri foot 04/02 1. There is extensive cellulitis in the dorsal aspect of the foot surrounding a more central area of diminished enhancement. There is likely corresponds to cellulitis surrounding in the area of ischemia or developing phlegmonous changes. No obvious foreign body is detected. 2. There is myositis primarily involving the muscles surrounding the second and third metatarsal shafts. 3. There is tenosynovitis of the extensor digitorum tendons. 4. No gross evidence of osteomyelitis. Echo: Thank you for allowing us to participate in the care of this patient. Bethel Chávez MD Infectious Diseases Fellow 7:55 AM 04/03/2023 Pager #[phone] Associated attestation - Cece Gilmore MD - 04/03/2023 2:19 PM EDT I saw and examined the patient independently of Dr. Chávez today. I agree with his history, physical exam, and medical decision making as noted. Pt with sting ray trauma, which initially improved. She did bleed quite a bit at the time. About 1 week after sting, she developed erythema and more pain. She was prescribed doxy/cefdinir, which is great broad coverage, but exam did not improve. Added cefepime for pseudomonal coverage and switched vanco to linezolid. MRI without abscess. Will watch overnight and re-examine in the AM which hopes to go home on oral levaquin and linezoild. Cece Gilmore MD [facility] [place] Work Phone: 04-03-2023 Consult note Associated Order (s): IP CONSULT TO INFECTIOUS DISEASE Images from the original note were not included. INFECTIOUS DISEASES CONSULT NOTE Referring MD: Delon Brown MD Admission Date: 04/02/2023 Reason for Consult: R foot wound Chief Complaint: Foot Injury Impression / Discussion: Stingray sting R foot myositis 42 year old female with no significant past medical history presenting to the hospital due to R foot wound/swelling/pain. She was stung by a stingray on 03/19 with initial symptoms of swelling, erythema, and tenderness which seemed to resolve moderately with local wound care. This last week patient has had increased symptoms and recently saw her infection control nurse who started her on Doxycycline / Cefdinir. Symptoms continued but with slow/slight improvement. It does appear that the foot has greatly improved from prior picture the patient has provided. Imaging demonstrating tenosynovitis and myositis. Initially sting / venom likely causing myositis / symptoms. Will cover with antimicrobials for possible superimposed infection. Would like to see continued improvement with parenteral antimicrobials prior to transition to oral therapy/discharge. Potential future oral therapy could include Levaquin + Linezolid. Recommendations: Diagnostics: Follow up podiatry recommendations s/p MRI foot Monitor for continued clinical improvement. Therapeutics: Ok to stop vancomycin & Doxycycline Cefepime 2 g Q 8 hours + Linezolid 600 mg BID - ordered by ID ID team 1 will continue to follow. History of Presenting Illness Iris Vaca is a 42 y.o. female presented on 04/02/2023 12:16 PM with no major past medical history presenting with a chief complaint of R foot pain / cellulitic changes. Patient was walking near [facility] on 03/19 in several inches of shallow water when she was stung by a stingray. The initial pain of the sting had improved last week, however, last Wednesday the patient started to have increased swelling when she saw her High School Football Coach on Wednesday. She was prescribed Doxycycline + Cefdinir on Wednesday. Tetanus updated last month. Over the week that patient has had continued swelling, erythema, tenderness (especially with dependant position and ambulation). However, patient does state she feel the symptoms have slowly and moderately improved over this last week on antimicrobials. Denies fevers, chills, chest pain, Sob, abdominal pain, N/V/D. Xray of the R foot with ST swelling. No radiopaque foreign body or acute osseous process. MRI shows extensive cellulitis. Myositis noted with no obvious foreign body. Tenosynovitis of the extensor digitorum tendons but no gross evidence of OM. Review of Systems - GENERAL: Patient denies fever, chills, weight loss, fatigue, night sweats EYES: Patient denies blurry vision, eye pain HENT: Patient denies headache, hearing loss, sore throat, dysphagia, sinus pain CARDIO: Patient denies chest pain, palpitations, orthopnea PULM: Patient denies shortness of breath, wheezing, cough, sputum, hemoptysis GI: Patient denies nausea, vomiting, diarrhea, abdominal pain, blood in stool : Patient denies urinary frequency, urgency, dysuria, urethral discharge MSK:R foot pain, swelling, and erythema SKIN: Patient denies rash, redness HEME: Patient denies easy bruising, bleeding Past Medical History No past medical history on file. Past Surgical History Past Surgical History: Procedure Laterality Date DELIVERY ONLY 09/23/2012 Laterality: Midline; Surgeon: Rebekah Castillo MD; Location: [facility] OR SECTION, LOW TRANSVERSE Past Social History Social History Socioeconomic History Marital status: Tobacco Use Smoking status: Never Smokeless tobacco: Never Substance and Sexual Activity Alcohol use: Yes Alcohol/week: 0.0 standard drinks of alcohol Drug use: No Sexual activity: Yes Partners: Male control/protection: Pill Family History Family History Problem Relation Age of Onset Breast Cancer Maternal Aunt 45 Ovarian Cancer Maternal Grandmother 60 Myasthenia Gravis, Ocular Father Allergies: No Known Allergies Physical Examination Vital Signs (24hrs): Temp: [97.9 F (36.6 C)-98 F (36.7 C)] 98 F (36.7 C) Pulse (Heart Rate): [70-86] 70 Resp Rate: [14-16] 16 BP: (102-120)/(63-77) 102/63 O2 Sat (%): [97 %-100 %] 97 % Weight: [67.9 kg (149 lb 11.2 oz)] 67.9 kg (149 lb 11.2 oz) GEN: Awake, resting comfortably EYES: EOMI, no scleral icterus HENT: MMM. No oral lesions. Fair dentition. NECK: Supple, no cervical lymphadenopathy or meningismus. CARDIO: RRR, no murmur. PULM/CHEST: CTAB. No increased work of breathing ABD: Soft, not tender or distended MSK: R foot swelling with some discoloration as below. SKIN: No rashes. Hands and fingers appear normal. No stigmata of endocarditis. NEURO: AOx3. Moves all four extremities. R foot Diagnostic Data: CBC Lab Results Component Value Date WBC 5.52 04/03/2023 HGB 13.3 04/03/2023 HCT 39.7 04/03/2023 PLATELET 266 04/03/2023 MCV 95.0 04/03/2023 Lab Results Component Value Date RBCDISTRIBU 12.4 04/03/2023 GRNLOCYT 55.7 04/03/2023 LYMPHOCYT 29.0 04/03/2023 MONOCYTELEC 11.1 04/03/2023 EOSINOPHILS 3.3 04/03/2023 BASOPHILS 0.7 04/03/2023 GRNLOCTYABS 5.9 08/31/2013 LYMPHOCYTABS 1.60 04/03/2023 MONOSABSOLU 0.7 08/31/2013 EOSINOPHLABS 0.18 04/03/2023 BASOPHILSABS 0.0 08/31/2013 PLATELET 266 04/03/2023 MPV 10.4 04/03/2023 BMP: Lab Results Component Value Date SODIUM 139 04/03/2023 POTASSIUM 4.3 04/03/2023 CHLORIDE 108 04/03/2023 CO2 27 04/03/2023 BUN 11 04/03/2023 CREATSERUM 0.81 04/03/2023 GLUCOSE 97 04/03/2023 Hepatic: Lab Results Component Value Date ALT 13 04/03/2023 AST 18 04/03/2023 ALKPHOS 39 04/03/2023 BILITOTAL 0.6 04/03/2023 BILIDIRECT LAB CANC-Specimen not received in laboratory. 07/26/2009 Microbiology and Other Significant ID Labs: (personally reviewed) Relevant Data: Cultures: Imaging: (personally reviewed) Mri foot 04/02 1. There is extensive cellulitis in the dorsal aspect of the foot surrounding a more central area of diminished enhancement. There is likely corresponds to cellulitis surrounding in the area of ischemia or developing phlegmonous changes. No obvious foreign body is detected. 2. There is myositis primarily involving the muscles surrounding the second and third metatarsal shafts. 3. There is tenosynovitis of the extensor digitorum tendons. 4. No gross evidence of osteomyelitis. Echo: Thank you for allowing us to participate in the care of this patient. Bethel Chávez MD Infectious Diseases Fellow 7:55 AM 04/03/2023 Pager #[phone] Associated attestation - Cece Gilmore MD - 04/03/2023 2:19 PM EDT I saw and examined the patient independently of Dr. Chávez today. I agree with his history, physical exam, and medical decision making as noted. Pt with sting ray trauma, which initially improved. She did bleed quite a bit at the time. About 1 week after sting, she developed erythema and more pain. She was prescribed doxy/cefdinir, which is great broad coverage, but exam did not improve. Added cefepime for pseudomonal coverage and switched vanco to linezolid. MRI without abscess. Will watch overnight and re-examine in the AM which hopes to go home on oral levaquin and linezoild. Cece Gilmore MD Associated Order(s): IP CONSULT TO PODIATRY Podiatry Surgery Consult Note REASON FOR CONSULTATION: right foot cellulitis, possible retained stingray nahum HISTORY OF PRESENT ILLNESS: Iris Vaca is a 42 y.o. female has no past medical history on file. [facility] right foot dorsum complicated by cellulitis. She was near [facility] on March 19, walking in several inches of seawater when she was stung by a stingray to the right foot dorsum. Pain initially improved last week, but on Wednesday, she had increased swelling. Dermatology saw her Wednesday and she started doxycycline on Wednesday and cefdinir on Wednesday without significant relief. No fever, chest pain, dyspnea, vomiting. She's had an xray and gram stain performed. Tetanus updated within the past month. . Patient was consulted by the podiatry service for evaluation of right foot stingray injury. Surgical Status: s/p Antibiotics Received No results found for: HGBA1C No past medical history on file. Past Surgical History: Procedure Laterality Date DELIVERY ONLY 09/23/2012 Laterality: Midline; Surgeon: Rebekah Castillo MD; Location: [facility] LD OR SECTION, LOW TRANSVERSE No Known Allergies MEDS: Vancomycin (VANCOCIN) IVPB 20 mg/kg (Order-Specific) Intravenous Once PRN MEDS: Acetaminophen, alum/mag hydrox.-simethicone Social History Socioeconomic History Marital status: Spouse name: Not on file Number of children: Not on file Years of education: Not on file Highest education level: Not on file Occupational History Not on file Tobacco Use Smoking status: Never Smokeless tobacco: Never Substance and Sexual Activity Alcohol use: Yes Alcohol/week: 0.0 standard drinks of alcohol Drug use: No Sexual activity: Yes Partners: Male control/protection: Pill Other Topics Concern Not on file Social History Narrative Not on file Social Determinants of Health Financial Resource Strain: Not on file Food Insecurity: Not on file Transportation Needs: Not on file Physical Activity: Not on file Stress: Not on file Social Connections: Not on file Intimate Partner Violence: Not on file Housing Stability: Not on file Family History Problem Relation Age of Onset Breast Cancer Maternal Aunt 45 Ovarian Cancer Maternal Grandmother 60 Myasthenia Gravis, Ocular Father Physical Exam Vitals: 04/02/23 1203 BP: 120/77 Pulse: 86 Resp: 14 Temp: 98 degrees F (36.7 degrees C) TempSrc: Oral SpO2: 98% Height: 1.676 m (5' 6) General appearance: alert, cooperative, appears stated age Lower extremity exam: Skin: Right foot with healing puncture wound with ecchymosis in site of sting. Edematous with minimal erythema. Musculoskeletal: Muscle strength 5/5 for all groups tested at STJ and ankle b/l. POP to the Right foot Neurological: Sensation grossly intact bilaterally Vascular: DP and PT pulses palpable bilaterally. Cap refill < 3 sec b/l. There is no increased warmth noted to the bilateral foot. There is edema present to the left lower extremity. Laboratory Results WBC/Hgb/Hct/Plts: 6.96/12.9/38.3/284 (04/02 1308) Bun/Creat/Cl/CO2/Glucose: 11/0.82/106/26/93 (04/02 1308) Na/K+/Phos/Mg/Ca: 137/3.5/--/--/8.7 (04/02 1308) No results found for: SEDRATE No results found for: CRP No results found for: HGBA1C Imaging Review XR FOOT RIGHT 3 VIEWS Final Result IMPRESSION: Soft tissue swelling. No radiopaque foreign body or acute osseous abnormality. US SOFT TISSUE EXTREMITY Final Result MRI FOOT RIGHT WITH AND WITHOUT CONTRAST (Results Pending) Cultures Assessment: 1. Right foot stingray injury 2. Cellulitis Recommendations: Patient seen and examined at bedside. No acute surgical intervention. XRs without retained foreign body. MRI pending. Possible further intervention pending MRI results. Would continue IV abx for cellulitis given minimal improvement on orals. Could consider ID consult. Wound Care: None Antibiotics: per primary Consults: ID Imaging: MRI Weight bearing Status: WBAT The above was discussed with the Podiatry Surgery Attending Dr. Freeman. Thank you for this consult, please page the podiatry resident balloon sander with questions. documented in this encounter [facility] 04-03-2023 Hospital Discharge instructions Tessa Nassar, SLOT FLOOR ATTENDANT-RECEPTIONIST/TELEPHONE OPERATOR - 04/03/2023 7:24 AM EDT Thank you for choosing [facility] in your time of healthcare need and for allowing us to answer your questions today. If any other questions or concerns arise, please do not hesitate to call the [facility] ED Clinical Waiter/Waitress at . At this time, there are not signs of immediately serious illness or injury, but conditions can change and/or develop with time, and, not all signs or symptoms may have been shown at this visit. Please return to the ER or see a doctor immediately if you have worsening foot pain, increase redness or skin darkening, unable to ambulate on foot or any other concerning symptoms. Below are the labs and imaging that were obtained during your visit. Please provide this to your primary care provider at your follow up. Your MRI right foot showed: Soft Tissue and muscles: There is diffuse soft swelling the dorsum of the foot. There is marked enhancement of the edematous subcutaneous fat at the administration of intravenous gadolinium compatible cellulitis. Additionally, there are areas within the dorsal soft tissues that demonstrate poor enhancement indicative of phlegmonous changes or areas of ischemia. These are most pronounced in the soft tissues dorsal to the second through fourth metatarsal shafts. There is no drainable fluid collection identified. There is interstitial edema in the muscles surrounding the second metatarsal shafts and to lesser extent in the medial muscles surrounding the third metatarsal shaft. There is tenosynovitis of the extensor digitorum tendons. Bone: Overall, bone marrow signal intensity is age appropriate. No pathologic areas of edema or enhancement. Joint: The tarsometatarsal and metatarsophalangeal joints appear in anatomic alignment. The interphalangeal joints appear anatomically aligned. No erosions. IMPRESSION IMPRESSION: 1. There is extensive cellulitis in the dorsal aspect of the foot surrounding a more central area of diminished enhancement. There is likely corresponds to cellulitis surrounding in the area of ischemia or developing phlegmonous changes. No obvious foreign body is detected. 2. There is myositis primarily involving the muscles surrounding the second and third metatarsal shafts. 3. There is tenosynovitis of the extensor digitorum tendons. 4. No gross evidence of osteomyelitis. Results for orders placed or performed during the hospital encounter of 04/02/23 BASIC METABOLIC PANEL Result Value Ref Range Sodium 137 135 - 145 mmol/L Potassium 3.5 3.5 - 5.0 mmol/L Chloride 106 98 - 108 mmol/L CO2 26 21 - 31 mmol/L Glucose 93 70 - 99 mg/dL BUN 11 7 - 25 mg/dL Creatinine 0.82 0.50 - 1.20 mg/dL Calcium 8.7 8.6 - 10.5 mg/dL Bun/Crea Ratio 13 Osmolality (Calculated) 285 278 - 305 mOsm/kg Anion Gap 9 7 - 17 mmol/L eGFR, CKD-EPI, Female >90 >=60 mL/min/1.73m2 CBC AND ELECTRONIC DIFF Result Value Ref Range WBC Count 6.96 3.99 - 11.19 K/uL RBC Count 4.08 3.91 - 5.04 M/uL Hemoglobin 12.9 11.4 - 15.2 g/dL Hematocrit 38.3 34.9 - 44.3 % Mean Cell Volume 93.9 79.6 - 97.7 fL Mean Cell Hgb 31.6 25.9 - 33.9 pg Mean Cell Hgb Conc 33.7 31.4 - 35.9 g/dL RBC Distribution 12.2 10.8 - 14.9 % Platelet Count 284 150 - 393 K/uL Mean Platelet Volume 10.5 8.5 - 12.2 fL DIFF STATUS Electronic Differential Segs + Bands Auto 68.4 % Immature Grans % 0.1 % Lymphocyte % Auto 21.7 % Monocyte % Auto 7.6 % Eosinophil % Auto 1.6 % Basophil % Auto 0.6 % Nucleated RBC 0.0 <=0.2 /100 WBC Segs + Bands,Absolute Auto 4.76 1.64 - 7.28 K/uL Immature Grans Absolute <0.04 <=0.08 K/uL Abs Lymph Auto 1.51 1.16 - 3.51 K/uL Abs Kings Auto 0.53 0.22 - 0.87 K/uL Abs Eos Auto 0.11 0.00 - 0.42 K/uL Abs Baso Auto 0.04 0.00 - 0.15 K/uL SEDIMENTATION RATE, AUTOMATED Result Value Ref Range ESR Westergren 9 <20 mm/hr C REACTIVE PROTEIN Result Value Ref Range C Reactive Protein 2.96 <10.00 mg/L COMPREHENSIVE METABOLIC PANEL Result Value Ref Range Sodium 139 135 - 145 mmol/L Potassium 4.3 3.5 - 5.0 mmol/L Chloride 108 98 - 108 mmol/L BUN 11 7 - 25 mg/dL Creatinine 0.81 0.50 - 1.20 mg/dL Glucose 97 70 - 99 mg/dL Bilirubin Total 0.6 <1.5 mg/dL Albumin 3.9 3.5 - 5.0 g/dL Total Protein 6.5 6.4 - 8.3 g/dL AST 18 10 - 39 U/L ALP 39 32 - 126 U/L Calcium 8.8 8.6 - 10.5 mg/dL CO2 27 21 - 31 mmol/L ALT 13 9 - 48 U/L Bun/Crea Ratio 14 Osmolality (Calculated) 291 278 - 305 mOsm/kg Anion Gap 8 7 - 17 mmol/L eGFR, CKD-EPI, Female >90 >=60 mL/min/1.73m2 CBC AND ELECTRONIC DIFF Result Value Ref Range WBC Count 5.52 3.99 - 11.19 K/uL RBC Count 4.18 3.91 - 5.04 M/uL Hemoglobin 13.3 11.4 - 15.2 g/dL Hematocrit 39.7 34.9 - 44.3 % Mean Cell Volume 95.0 79.6 - 97.7 fL Mean Cell Hgb 31.8 25.9 - 33.9 pg Mean Cell Hgb Conc 33.5 31.4 - 35.9 g/dL RBC Distribution 12.4 10.8 - 14.9 % Platelet Count 266 150 - 393 K/uL Mean Platelet Volume 10.4 8.5 - 12.2 fL DIFF STATUS Electronic Differential Segs + Bands Auto 55.7 % Immature Grans % 0.2 % Lymphocyte % Auto 29.0 % Monocyte % Auto 11.1 % Eosinophil % Auto 3.3 % Basophil % Auto 0.7 % Nucleated RBC 0.0 <=0.2 /100 WBC Segs + Bands,Absolute Auto 3.08 1.64 - 7.28 K/uL Immature Grans Absolute <0.04 <=0.08 K/uL Abs Lymph Auto 1.60 1.16 - 3.51 K/uL Abs Kings Auto 0.61 0.22 - 0.87 K/uL Abs Eos Auto 0.18 0.00 - 0.42 K/uL Abs Baso Auto 0.04 0.00 - 0.15 K/uL The following attachments cannot be sent through Care Everywhere.Puncture Wounds (Syriac)documented in this encounter [facility] 04-02-2023 Emergency department Note Off unit to MRI [facility] 04-02-2023 Consult note Associated Order (s): IP CONSULT TO PODIATRY Podiatry Surgery Consult Note REASON FOR CONSULTATION: right foot cellulitis, possible retained stingray nahum HISTORY OF PRESENT ILLNESS: Iris Vaca is a 42 y.o. female has no past medical history on file. [facility] to right foot dorsum complicated by cellulitis. She was near [facility] on March 19, walking in several inches of seawater when she was stung by a stingray to the right foot dorsum. Pain initially improved last week, but on Wednesday, she had increased swelling. Dermatology saw her Wednesday and she started doxycycline on Wednesday and cefdinir on Wednesday without significant relief. No fever, chest pain, dyspnea, vomiting. She's had an xray and gram stain performed. Tetanus updated within the past month. . Patient was consulted by the podiatry service for evaluation of right foot stingray injury. Surgical Status: s/p Antibiotics Received No results found for: HGBA1C No past medical history on file. Past Surgical History: Procedure Laterality Date DELIVERY ONLY 09/23/2012 Laterality: Midline; Surgeon: Rebekah Castillo MD; Location: [facility] LD OR SECTION, LOW TRANSVERSE No Known Allergies MEDS: Vancomycin (VANCOCIN) IVPB 20 mg/kg (Order-Specific) Intravenous Once PRN MEDS: Acetaminophen, alum/mag hydrox.-simethicone Social History Socioeconomic History Marital status: Spouse name: Not on file Number of children: Not on file Years of education: Not on file Highest education level: Not on file Occupational History Not on file Tobacco Use Smoking status: Never Smokeless tobacco: Never Substance and Sexual Activity Alcohol use: Yes Alcohol/week: 0.0 standard drinks of alcohol Drug use: No Sexual activity: Yes Partners: Male control/protection: Pill Other Topics Concern Not on file Social History Narrative Not on file Social Determinants of Health Financial Resource Strain: Not on file Food Insecurity: Not on file Transportation Needs: Not on file Physical Activity: Not on file Stress: Not on file Social Connections: Not on file Intimate Partner Violence: Not on file Housing Stability: Not on file Family History Problem Relation Age of Onset Breast Cancer Maternal Aunt 45 Ovarian Cancer Maternal Grandmother 60 Myasthenia Gravis, Ocular Father Physical Exam Vitals: 04/02/23 1203 BP: 120/77 Pulse: 86 Resp: 14 Temp: 98 degrees F (36.7 degrees C) TempSrc: Oral SpO2: 98% Height: 1.676 m (5' 6) General appearance: alert, cooperative, appears stated age Lower extremity exam: Skin: Right foot with healing puncture wound with ecchymosis in site of sting. Edematous with minimal erythema. Musculoskeletal: Muscle strength 5/5 for all groups tested at STJ and ankle b/l. POP to the Right foot Neurological: Sensation grossly intact bilaterally Vascular: DP and PT pulses palpable bilaterally. Cap refill < 3 sec b/l. There is no increased warmth noted to the bilateral foot. There is edema present to the left lower extremity. Laboratory Results WBC/Hgb/Hct/Plts: 6.96/12.9/38.3/284 (04/02 1308) Bun/Creat/Cl/CO2/Glucose: 11/0.82/106/26/93 (04/02 1308) Na/K+/Phos/Mg/Ca: 137/3.5/--/--/8.7 (04/02 1308) No results found for: SEDRATE No results found for: CRP No results found for: HGBA1C Imaging Review XR FOOT RIGHT 3 VIEWS Final Result IMPRESSION: Soft tissue swelling. No radiopaque foreign body or acute osseous abnormality. US SOFT TISSUE EXTREMITY Final Result MRI FOOT RIGHT WITH AND WITHOUT CONTRAST (Results Pending) Cultures Assessment: 1. Right foot stingray injury 2. Cellulitis Recommendations: Patient seen and examined at bedside. No acute surgical intervention. XRs without retained foreign body. MRI pending. Possible further intervention pending MRI results. Would continue IV abx for cellulitis given minimal improvement on orals. Could consider ID consult. Wound Care: None Antibiotics: per primary Consults: ID Imaging: MRI Weight bearing Status: WBAT The above was discussed with the Podiatry Surgery Attending Dr. Freeman. Thank you for this consult, please page the podiatry resident balloon sander with questions. [facility] Work Phone: 04-02-2023 Progress note Formatting of t his note is different from the original. DEPARTMENT OF EMERGENCY MEDICINE CHIEF COMPLAINT Chief Complaint Patient presents with Foot Injury HISTORY OF PRESENT ILLNESS Iris Vaca is a 42 y.o. female was appropriately risk stratified for observation level of care and was placed on the [facility] Cellulitis protocol Patient has no medical history and does not take prescribed medications. Patient was visiting and help him head on when she had a stingray injury. She soaked in hot water and injury seemed to not be very significant. This past Wednesday, March 27 she started to have a rash to her posterior ankle. This slowly seemed to improve although she started to have a lot of dorsal swelling and skin discoloration. She saw Dermatology on Wednesday the and was given doxycycline to which she started that day. She also started cefdinir a day later. While at the infection control nurse she also had wound culture and Gram stain and both were negative. X-ray was also negative. Patient was re-evaluated and sent to the ER for evaluation d/t no changes. After seen by Podiatry patient was placed in observation unit. Tetanus was updated last month Podiatry Recommendations: Patient seen and examined at bedside. No acute surgical intervention. XRs without retained foreign body. MRI pending. Possible further intervention pending MRI results. Would continue IV abx for cellulitis given minimal improvement on orals. Could consider ID consult. Wound Care: None Antibiotics: per primary Consults: ID Imaging: MRI Weight bearing Status: WBAT REVIEW OF SYSTEMS Review of Systems Constitutional: Negative for chills and fever. Respiratory: Negative for shortness of breath. Cardiovascular: Negative for chest pain. Gastrointestinal: Negative for nausea and vomiting. Neurological: Negative for tingling. All other systems reviewed and are negative. PAST MEDICAL HISTORY Past Medical History Reviewed, Contributory Findings Include: No past medical history on file. SURGICAL HISTORY Past Surgical History Reviewed, Contributory Findings Include: Past Surgical History: Procedure Laterality Date DELIVERY ONLY 09/23/2012 Laterality: Midline; Surgeon: Rebekah Castillo MD; Location: [facility] LD OR SECTION, LOW TRANSVERSE MEDICATIONS GIVEN IN THE ED Medications Vancomycin HCl in NaCl (Vancocin) 1,250 mg 287.5 ml premade IVPB (has no administration in time range) ALLERGIES No Known Allergies FAMILY HISTORY Past Family History Reviewed, Contributory Findings Include: Family History Problem Relation Age of Onset Breast Cancer Maternal Aunt 45 Ovarian Cancer Maternal Grandmother 60 Myasthenia Gravis, Ocular Father SOCIAL HISTORY Social History Socioeconomic History Marital status: Spouse name: Not on file Number of children: Not on file Years of education: Not on file Highest education level: Not on file Occupational History Not on file Tobacco Use Smoking status: Never Smokeless tobacco: Never Substance and Sexual Activity Alcohol use: Yes Alcohol/week: 0.0 standard drinks of alcohol Drug use: No Sexual activity: Yes Partners: Male control/protection: Pill Other Topics Concern Not on file Social History Narrative Not on file Social Determinants of Health Financial Resource Strain: Not on file Food Insecurity: Not on file Transportation Needs: Not on file Physical Activity: Not on file Stress: Not on file Social Connections: Not on file Intimate Partner Violence: Not on file Housing Stability: Not on file PHYSICAL EXAM BP 120/77 Pulse 86 Temp 98 F (36.7 C) (Oral) Resp 14 Ht 1.676 m (5' 6) SpO2 98% BMI 21.79 kg/m Smoking Status Never Physical Exam Vitals and nursing note reviewed. Constitutional: Appearance: She is well-developed. She is not ill-appearing or toxic-appearing. HENT: Head: Normocephalic and atraumatic. Eyes: General: Lids are normal. Extraocular Movements: Extraocular movements intact. Conjunctiva/sclera: Conjunctivae normal. Cardiovascular: Rate and Rhythm: Normal rate and regular rhythm. Heart sounds: Normal heart sounds. Pulmonary: Effort: Pulmonary effort is normal. No respiratory distress. Breath sounds: Normal breath sounds. No wheezing, rhonchi or rales. Chest: Chest wall: No deformity. Abdominal: General: There is no distension. There are no signs of injury. Palpations: Abdomen is soft. Tenderness: There is no abdominal tenderness. Musculoskeletal: Cervical back: Normal range of motion and neck supple. Comments: Dorsum of right foot is with swelling noted, skin color change to bruising not significantly warm touch. Small scab formation. No crepitance. No eschar. DP pulse faint secondary to edema. Faint rash to the posterior ankle. Range of motion of the extremity intact. Erysipelas versus cellulitis Skin: General: Skin is warm and dry. Neurological: General: No focal deficit present. Mental Status: She is alert. Cranial Nerves: No facial asymmetry. Gait: Gait is intact. Psychiatric: Mood and Affect: Mood normal. Speech: Speech normal. Behavior: Behavior normal. Behavior is cooperative. EDOU COURSE & MEDICAL DECISION MAKING Risk stratification appropriate for observation level of care. Patient was placed in EDOU on the Cellulitis protocol. Patient age greater than 64y/o? NO I reviewed the patients' medical records and nursing notes and noted their allergies, past medical history, and previous visits. The reviewed showed: Results for orders placed or performed during the hospital encounter of 04/02/23 CBC AND ELECTRONIC DIFF Result Value Ref Range WBC Count 6.96 3.99 - 11.19 K/uL RBC Count 4.08 3.91 - 5.04 M/uL Hemoglobin 12.9 11.4 - 15.2 g/dL Hematocrit 38.3 34.9 - 44.3 % Mean Cell Volume 93.9 79.6 - 97.7 fL Mean Cell Hgb 31.6 25.9 - 33.9 pg Mean Cell Hgb Conc 33.7 31.4 - 35.9 g/dL RBC Distribution 12.2 10.8 - 14.9 % Platelet Count 284 150 - 393 K/uL Mean Platelet Volume 10.5 8.5 - 12.2 fL DIFF STATUS Electronic Differential Segs + Bands Auto 68.4 % Immature Grans % 0.1 % Lymphocyte % Auto 21.7 % Monocyte % Auto 7.6 % Eosinophil % Auto 1.6 % Basophil % Auto 0.6 % Nucleated RBC 0.0 <=0.2 /100 WBC Segs + Bands,Absolute Auto 4.76 1.64 - 7.28 K/uL Immature Grans Absolute <0.04 <=0.08 K/uL Abs Lymph Auto 1.51 1.16 - 3.51 K/uL Abs Kings Auto 0.53 0.22 - 0.87 K/uL Abs Eos Auto 0.11 0.00 - 0.42 K/uL Abs Baso Auto 0.04 0.00 - 0.15 K/uL The patient received the following interventions in the ED to date: Labs as indicated above. Vancomycin ; Xray. On reassessment the patient's response to the interventions was no change in symptoms. Plan: Monitor and repeat labs as appropriate, home medications ordered, area demarcated as appropriate, Vancomycin, MRI foot ordered. Infectious Disease consults While in the EDOU we will continue to check, monitor and reassess patient and alter our plan as clinically appropriate. I have discussed this plan of care with Dr. Ward , the EDOU attending physician, who is in agreement with this plan. This is a shared visit on 04/02/2023. MRI FOOT RIGHT WITH AND WITHOUT CONTRAST Final Result IMPRESSION: 1. There is extensive cellulitis in the dorsal aspect of the foot surrounding a more central area of diminished enhancement. There is likely corresponds to cellulitis surrounding in the area of ischemia or developing phlegmonous changes. No obvious foreign body is detected. 2. There is myositis primarily involving the muscles surrounding the second and third metatarsal shafts. 3. There is tenosynovitis of the extensor digitorum tendons. 4. No gross evidence of osteomyelitis. FOOT RIGHT 3 VIEWS Final Result IMPRESSION: Soft tissue swelling. No radiopaque foreign body or acute osseous abnormality. US SOFT TISSUE EXTREMITY Final Result PT VANCOMYCIN ORDERED Q12 AND DISCUSSED WITH PHARMACIST. WAITING ON INFECTIOUS DISEASE AND PODIATRY REC'S [facility] Work Phone: 04-02-2023 Physician Emergency department Note dEPARTMENT of Emergency Medicine CHIEF COMPLAINT Foot Injury HPI Iris Vaca is a 42 y.o. female who presents with possible retained foreign body to right foot dorsum complicated by cellulitis. She was near [facility] on March 19, walking in several inches of seawater when she was stung by a stingray to the right foot dorsum. Pain initially improved last week, but on Wednesday, she had increased swelling. Dermatology saw her Wednesday and she started doxycycline on Wednesday and cefdinir on Wednesday without significant relief. No fever, chest pain, dyspnea, vomiting. She's had an xray and gram stain performed. Tetanus updated within the past month. REVIEW OF SYSTEMS Review of Systems Constitutional: Negative for fever. Respiratory: Negative for cough and shortness of breath. Cardiovascular: Negative for chest pain. Gastrointestinal: Negative for abdominal pain, nausea and vomiting. Musculoskeletal: Positive for arthralgias. Skin: Positive for wound. All other systems reviewed and are negative. PAST MEDICAL HISTORY No past medical history on file. SURGICAL HISTORY Past Surgical History: Procedure Laterality Date DELIVERY ONLY 09/23/2012 Laterality: Midline; Surgeon: Rebekah Castillo MD; Location: [facility] OR SECTION, LOW TRANSVERSE CURRENT MEDICATIONS No current facility-administered medications for this encounter. Current Outpatient Medications Medication Sig Dispense Refill Cefdinir (OMNICEF) 300 MG capsule Take 1 capsule by mouth every 12 hours. desogestrel-ethinyl estradiol (APRI) 0.15-30 MG-MCG Tab take 1 tablet by mouth daily. 28 tablet 11 Doxycycline monohydrate 100 MG capsule Take 1 capsule by mouth every 12 hours. ALLERGIES No Known Allergies FAMILY HISTORY Family History Problem Relation Age of Onset Breast Cancer Maternal Aunt 45 Ovarian Cancer Maternal Grandmother 60 Myasthenia Gravis, Ocular Father SOCIAL HISTORY Social History Socioeconomic History Marital status: Spouse name: Not on file Number of children: Not on file Years of education: Not on file Highest education level: Not on file Occupational History Not on file Tobacco Use Smoking status: Never Smokeless tobacco: Never Substance and Sexual Activity Alcohol use: Yes Alcohol/week: 0.0 standard drinks of alcohol Drug use: No Sexual activity: Yes Partners: Male control/protection: Pill Other Topics Concern Not on file Social History Narrative Not on file Social Determinants of Health Financial Resource Strain: Not on file Food Insecurity: Not on file Transportation Needs: Not on file Physical Activity: Not on file Stress: Not on file Social Connections: Not on file Intimate Partner Violence: Not on file Housing Stability: Not on file PHYSICAL EXAM BP 120/77 Pulse 86 Temp 98 F (36.7 C) (Oral) Resp 14 Ht 1.676 m (5' 6) SpO2 98% BMI 21.79 kg/m Smoking Status Never Physical Exam Vitals and nursing note reviewed. Constitutional: Appearance: Normal appearance. HENT: Nose: No rhinorrhea. Eyes: General: No scleral icterus. Right eye: No discharge. Left eye: No discharge. Cardiovascular: Rate and Rhythm: Normal rate and regular rhythm. Pulmonary: Effort: Pulmonary effort is normal. Breath sounds: Normal breath sounds. Abdominal: General: Abdomen is flat. Palpations: Abdomen is soft. Musculoskeletal: Comments: Right foot dorsum is swollen with areas of ecchymosis and ttp without crepitance. No lymphangitic streaking. No short arc tenderness or tenderness to the right ankle. Skin: General: Skin is warm. Neurological: General: No focal deficit present. Mental Status: She is alert and oriented to person, place, and time. ED COURSE & MEDICAL DECISION MAKING Right foot cellulitis, r/o retained fb Medical Decision Making Will consult podiatry, obtain labs (no leukocytosis), obtain MRI if bedside ultrasound does not demonstrate retained FB (ultrasound showed cobblestoning c/w cellulitis but no definitive fb), and place in obs on vanc. Amount and/or Complexity of Data Reviewed Labs: ordered. Decision-making details documented in ED Course. Radiology: ordered. Risk Decision regarding hospitalization. Mary Sinha DO 04/02/23 1306 Mary Sinha DO 04/02/23 2806 [facility] [place] Work Phone: 04-02-2023 Emergency department Note Pt presents with right foot pain related to a sting ray incident on 03/19. Pt was given ATBs Wednesday and Wednesday this week related to increased pain to the foot; possible cellulitis vs retained nahum. Pt was seen by infection control nurse where bacterial wound cultures were negative and xrays were negative. [facility] [place] 01-18-2023 Miscellaneous Notes January 19, 2023 PID: [id number] Iris Vaca [address] [place] [address] Dear Ms. Vaca, We are pleased to inform you that the results of your recent breast imaging exam on 01/15/2023 are normal. Your mammogram demonstrates that you have dense breast tissue, which could hide abnormalities. Dense breast tissue, in and of itself, is a relatively common condition. Therefore, this information is not provided to cause undue concern; rather, it is to raise your awareness and promote discussion with your health care provider regarding the presence of dense breast tissue in addition to other risk factors. Early detection of cancer is very important. We also understand recommendations regarding breast cancer screening are controversial. Please discuss with your primary care provider which strategy is best for you and whether a mammogram is right for you. Your imaging studies and report will be kept on file at [facility] as part of your permanent medical record and are available for your continuing care. Thank you for allowing us to help in meeting your health care needs. Sincerely, Dr. Hampton Interpreting Radiologist [facility] (Normal over 40) documented in this encounter [facility] 01-15-2023 History of Present illness Narrative Radiology Service Progress Note PATIENT NAME: Iris Vaca DATE OF SERVICE: January 15, 2023 TIME: 9:14 AM PATIENT IDENTITY VERIFICATION COMPLETED USING TWO (2) IDENTIFIERS: Name and Date of confirmed by patient verbally. FALL SCREENING: Has the patient had 2 falls in the last year or 1 fall with injury or currently using an Ambulatory Assistive Device (Walker, Cane, Wheelchair, Crutches, etc.)? No PATIENT GENDER DATA: Female. status: : No status: NO. PATIENT RELEVANT IMPLANT DATA REVIEWED: Not Applicable RADIOLOGY DEPARTMENT: Mammography PERIPHERAL IV DATA: Not applicable SIGNED BY: RT Hammad(R) January 15, 2023 9:14 AM documented in this encounter [facility] 09-15-2022 Miscellaneous Notes TC patient, left detailed message regarding results. Advised patient that if she any questions she can send message to provider or give us a call back. Ana Maria Blood RN ----- Message from Mere Grier MD sent at 09/15/2022 6:24 AM EST ----- Test results are essentially stable. Will discuss in detail when you come in for your office visit, if there are questions that you would like to be addressed now, please get back to me on the email or via a telephone encounter. documented in this encounter [facility] 09-09-2022 History of Present illness Narrative Reason for Visit Patient presents with: Physical: c/o neck pain x 1week Iris Vaca is a 41 year old female who presents here today for CPE. Health Maintenance HEPATITIS B(1 of 3 - 3-dose series) HEPATITIS C SCREENING HIV SCREENING DTAP,TDAP,TD(1 - Tdap) DEPRESSION ASSESSMENT COVID-19 VACCINE(4 - Booster for Moderna series) HPI Neck pain: patient notes starting on Wednesday, right ear was muffled, she felt a little imbalanced on Wednesday and Wednesday she was fine. Had an episode of blood on the tissue when she went to wipe after a BM. It was not on the stool , no dripping in the toilet, just on the tissue, some mucus, seemed like blood from period but she does not have a periods. 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 Had this once before and it was vaginal, follow up exam was ok, she does have fibroids , grandmother did of ovarian cancer. Patient was in her early 60s. Diet is usually very healthy. Does not drink a lot of pop Sleep- sleeps well Stress- not much stress, but a lot on her plate Exercise- she is not doing much exercise , was a runner and stopped running recently. She already had a mammogram in the past year. Gets skin checks yearly Mother of MM recently. No problem-specific Assessment & Plan notes found for this encounter. PAST MEDICAL HISTORY Diagnosis Date NEGATIVE MEDICAL HISTORY PAST SURGICAL HISTORY Procedure Laterality Date DELIVERY ONLY 2008, 2011 , low transverse EXTRACTION, ERUPTED TOOTH OR EXPOSED ROOT (ELEVATION AND/OR FORCEPS REMOVAL) FAMILY HISTORY Problem Relation Age of Onset other (Other- multiple myeloma) Mother other (Ocular Myasthenia Gravis) Father Cancer Maternal Grandmother 60 Ovarian Cancer Heart Paternal Grandmother Diabetes Paternal Grandmother Heart Paternal Grandfather [place] Breast Cancer Maternal Aunt 44 Social History Tobacco Use Smoking status: Never Smokeless tobacco: Never Vaping Use Vaping Use: Never used Substance Use Topics Alcohol use: Yes Comment: Occasionally Drug use: No Past medical history, appointments, medications, allergies reviewed. Pertinent Lab/Diagnostic Studies are reviewed and discussed today No current outpatient medications on file. Review of Systems CONSTITUTIONAL: No fevers, chills, nightsweats, unintended weight loss HEENT: Denies frequent or severe heaches, nasal congestion/sinus symptoms, problematic allergy problems. EYES: No diplopia or blurry vision. CARDIOVASCULAR: No chest pain, dyspnea, palpitations, orthopnea, PND, ankle edema. PULM: No dyspnea, unexplained cough. GI: No dysphagia/odynophagia, problematic reflux, constipation, diarrhea, changes in stool habits, hematochezia, melena. : No new urinary complaints, including dysuria, gross hematuria or pyuria. NEURO: No new balance problems, peripheral weakness/paresthesias or numbness of concern. MUSC-SKEL: No new joint pain, swelling, or erythema. PSY: No concerns regarding depression, anxiety or panic. INTEGUMENTARY: No new skin changes (rash, new or changing mole, new growth) Physical Exam BP 100/56 (BP Site: Left Arm, BP Position: Sitting, BP Cuff Size: Large Adult) Pulse 75 Resp 12 Ht 167.6 cm (5' 6) Wt 66.2 kg (146 lb) LMP 10/26/2021 (Exact Date) SpO2 100% BMI 23.57 kg/m General appearance: Well appearing, alert, in no acute distress, well-hydrated, well nourished. Skin: Skin color, texture, turgor normal, no suspicious rashes or lesions Head: Normocephalic, no masses, lesions, tenderness or abnormalities Eyes: Anicteric sclera. Pupils are equally round and reactive to light. Extraocular movements are intact. Ears: External ears normal, canals clear Nose/Sinuses: Nares normal, septum midline, mucosa normal, no drainage or sinus tenderness Oropharynx: Lips, mucosa, and tongue normal, teeth and gums normal, oropharynx normal Neck: Supple, no adenopathy; thyroid symmetric, normal size, no bruits Back: Normal exam Lungs: Lungs clear to auscultation. No wheezing, rhonchi, rales Heart: RRR without murmur, gallop, or rubs. No ectopy Abdomen: Normal abdominal exam, Abdomen soft, non-tender. Bowel sounds normal. No masses, organomegaly Extremities: No deformities, edema, skin discoloration, clubbing or cyanosis. Good capillary refill. Musculoskeletal: No joint swelling, deformity, or tenderness Peripheral pulses: Normal Neuro: Gait normal. Reflexes normal and symmetric. Sensation grossly intact. Rectal exam was done: normal tone and no hemorrhoids externally, no lumps or masses felt, Ifobt was positive. ASSESSMENT/PLAN: 1. Annual physical exam - ICD9: V70.0, ICD10: Z00.00 (primary diagnosis) - Counseled on healthy diet and regular exercise - Calcium intake with supplements or by diet of 1000 mg/day for under 50, 0034-6074 mg/day for 50+ - DEPRESSION SCREENING/ASSESSMENT - CBC + DIFF - COMP METABOLIC PANEL - LIPID PANEL BASIC 2. Blood per rectum - ICD9: 569.3, ICD10: K62.5 - FECAL OCCULT BLOOD TEST Mere Grier MD documented in this encounter [facility] 01-13-2022 History of Present illness Narrative Radiology Service Progress Note PATIENT NAME: Iris Vaca DATE OF SERVICE: January 13, 2022 TIME: 9:55 AM PATIENT IDENTITY VERIFICATION COMPLETED USING TWO (2) IDENTIFIERS: Name and Date of confirmed by patient verbally. FALL SCREENING: Has the patient had 2 falls in the last year or 1 fall with injury or currently using an Ambulatory Assistive Device (Walker, Cane, Wheelchair, Crutches, etc.)? No PATIENT GENDER DATA: Female. status: : No status: N/A PATIENT RELEVANT IMPLANT DATA REVIEWED: Not Applicable RADIOLOGY DEPARTMENT: Ultrasound PERIPHERAL IV DATA: Not applicable SIGNED BY: Homa Seo RDMS RVT January 13, 2022 9:55 AM documented in this encounter [facility] Evaluation note Diagnosis Breast pain Mastodynia [facility] Diagnosis Annual physical exam- Primary Routine general medical examination at a health care facility Blood per rectum Hemorrhage of rectum and anus Screening for HIV (human immunodeficiency virus) Special screening examination for other specified viral diseases Special screening examination for viral disease Special screening examination for unspecified viral disease [facility] noteNo assessment information availableWBerger Hospital Work Phone: Evaluation note* Diagnosis Injury of right foot, initial encounter- Primary [facility] Diagnosis Encounter for gynecological examination (general) (routine) without abnormal findings- Primary Encounter for screening mammogram for breast cancer Family history of malignant neoplasm of breast [facility]* Diagnosis Family history of malignant neoplasm of ovary- Primary Family history of malignant neoplasm of breast [facility]* Diagnosis Encounter for screening mammogram for breast cancer documented [facility]* Diagnosis Encounter for screening mammogram for breast cancer Family history of malignant neoplasm of breast documented in this encounter [facility] note* Diagnosis Abnormal mammogram- Primary Abnormal mammogram, unspecified documented in this encounter [facility] note* Diagnosis Abnormal mammogram Abnormal mammogram, unspecified documented in this encounter [facility] note* Diagnosis Breast pain- Primary Mastodynia Mass of upper outer quadrant of left breast documented in this encounter [facility] note* Diagnosis Encounter for gynecological examination (general) (routine) without abnormal findings- Primary Screening for cervical cancer Screening for malignant neoplasm of the cervix Encounter for screening for human papillomavirus (HPV) Special screening examination for human papillomavirus (HPV) Encounter for screening mammogram for breast cancer documented in this encounter [facility] note* Diagnosis Breast pain Mastodynia Mass of upper outer quadrant of left breast documented in this encounter [facility] note* Diagnosis Breast pain Mastodynia Mass of upper outer quadrant of left breast documented in this encounter [facility] for referral (narrative)* Diagnostic Procedure Only (Routine) - Closed Specialty Diagnoses / Procedures Referred By Ying stern Referred To Contact BR IMAGING Diagnoses Breast pain Procedures US BREAST LTD LT US BREAST UNI REAL TIME WITH IMAGE LIMITED Regine Peña [place] [facility] [place] [address] [facility] [address] [place] [address] Referral ID Status Reason Start Date Expiration Date V isits Requested Visits Authorized [id number] Closed Auto-Generate d Referral 11/05/2021 12/05/2022 1 1 [facility] for referral (narrative)* Consultation (Urgent) - New Request Specialty Diagnoses / Procedures Referred By Ying stern Referred To Contact Infectious Diseases Diagnoses Injury of right foot, initial encounter Tessa Nassar, SLOT FLOOR ATTENDANT-RECEPTIONIST/TELEPHONE OPERATOR [address] [place] [phone] Referral ID Status Reason Start Date Expiration Date V isits Requested Visits Authorized [id number] New Request 04/04/2023 04/28/2024 1 1 Electronically signed by Tessa Nassar SLOT FLOOR ATTENDANT-RECEPTIONIST/TELEPHONE OPERATOR at 04/04/2023 8:41 AM EDT [facility] for referral (narrative)* Diagnostic Procedure Only (Routine) - Closed Specialty Diagnoses / Procedures Referred By Ying t Referred To Contact [facility] IMAG[facility] Diagnoses Encounter for screening mammogram for breast cancer Procedures ZOLTAN SCREENING SCREENING MAMMOGRAPHY BI 2-VIEW BREAST INC CAD Mere Grier MD [address] [place] [address] [facility] [address] [place] [address] Referral ID Status Reason Start Date Expiration Date V isits Requested Visits Authorized [id number] Closed Auto-Generate d Referral 11/18/2022 12/18/2023 1 1 [facility] for referral (narrative)* Diagnostic Procedure Only (Routine) - Authorized Specialty Diagnoses / Procedures Referred By Ying stern Referred To Contact [facility] IMAGING Diagnoses Abnormal mammogram Procedures US BREAST LTD LEFT US BREAST UNI REAL TIME WITH IMAGE LIMITED Regine Peña MD [address] [place] [address] [facility] [address] [place] [address] Referral ID Status Reason Start Date Expiration Date Visits Requested Visits Authorized [id number] Authorized Auto-Generat ed Referral 01/20/2024 02/18/2025 1 1 * Diagnostic Procedure Only (Routine) - Authorized Specialty Diagnoses / Procedures [facility] Referred To Contact [facility] Diagnoses Abnormal mammogram Procedures ZOLTAN DIAGNOSTIC LEFT DIAGNOSTIC MAMMOGRAPHY COMPUTER-AIDED DETCJ UNI Regine Peña MD [address] [place] [address] [facility] [address] [place] [address] Referral ID Status Reason Start Date Expiration Date Visits Requested Visits Authorized [id number] Authorized Auto-Generat ed Referral 01/20/2024 02/18/2025 1 1 [facility] for referral (narrative)* Diagnostic Procedure Only (Routine) - Closed Specialty Diagnoses / Procedures Referred By Ying t Referred To Contact [facility] IMAGING Diagnoses Abnormal mammogram Procedures US BREAST LTD LEFT US BREAST UNI REAL TIME WITH IMAGE LIMITED Regine Peña MD [address] [place] [address] [facility] [address] [place] [address] Referral ID Status Reason Start Date Expiration Date V isits Requested Visits Authorized [id number] Closed Auto-Generate d Referral 01/20/2024 02/18/2025 1 1 T [facility] for referral (narrative)* Diagnostic Procedure Only (Routine) - Pending Review Specialty Diagnoses / Procedures Referred By Jeremyac t Referred To Contact [facility] IMAGING Diagnoses Breast pain Mass of upper outer quadrant of left breast Procedures US BREAST LTD LEFT US BREAST UNI REAL TIME WITH IMAGE LIMITED Suman Moreira APRN.CNP [address] [place] [address] [facility] [address] [place] [address] Referral ID Status Reason Start Date Expiration Date Visits Requested Visits Authorized [id number] Pending Review Auto-Generat ed Referral 10/28/2025 1 1 * Diagnostic Procedure Only (Routine) - Pending Review Specialty Diagnoses / Procedures [facility] Referred To Contact [facility] Diagnoses Breast pain Mass of upper outer quadrant of left breast Procedures ZOLTAN DIAGNOSTIC BILATERAL DIAGNOSTIC MAMMOGRAPHY COMPUTER-AIDED DETCJ BI Suman Moreira APRN.CNP [address] [place] [address] [facility] [address] [place] [address] Referral ID Status Reason Start Date Expiration Date Visits Requested Visits Authorized [id number] Pending Review Auto-Generat ed Referral 10/28/2025 1 1 [facility] for referral (narrative)* Diagnostic Procedure Only (Routine) - Pending Review Specialty Diagnoses / Procedures Referred By Ying stern Referred To Contact BR IMAGING Diagnoses Encounter for gynecological examination (general) (routine) without abnormal findings Encounter for screening mammogram for breast cancer Procedures ZOLTAN SCREENING W JOSE RAFAEL SCREENING DIGITAL BREAST TOMOSYNTHESIS BI SCREENING MAMMOGRAPHY BI 2-VIEW BREAST INC CAD Regine Peña MD [address] [place] [address] [facility] [email or web address] [place] [address] Referral ID Status Reason Start Date Expiration Date Visits Requested Visits Authorized [id number] Pending Review Auto-Generat ed Referral 10/26/2024 11/25/2025 1 1 [facility] for referral (narrative)* Diagnostic Procedure Only (Routine) - Closed Specialty Diagnoses / Procedures Referred By Ying stern Referred To Contact [facility] IMAGING Diagnoses Breast pain Mass of upper outer quadrant of left breast Procedures US BREAST LTD LEFT US BREAST UNI REAL TIME WITH IMAGE LIMITED Suman Moreira APRN.CNP [address] [place] [address] [facility] [address] [place] [address] Referral ID Status Reason Start Date Expiration Date V isits Requested Visits Authorized [id number] Closed Auto-Generate d Referral 11/13/2024 10/17/2025 1 1 [facility] for referral (narrative)No reason for referral information availableWBerger Hospital Work Phone: Reason for visit Narrative* Diagnostic Procedure Only (Routine) - Closed Specialty Diagnoses / Procedures Referred By Contac t Referred To Contact BR IMAGING Diagnoses Encounter for screening mammogram for breast cancer Procedures ZOLTAN SCREENING SCREENING MAMMOGRAPHY BI 2-VIEW BREAST INC CAD Mere Grier MD [address] [place] [address] [facility] [address] [place] [address] Referral ID Status Reason Start Date Expiration Date V isits Requested Visits Authorized [id number] Closed Auto-Generate d Referral 11/18/2022 12/18/2023 1 1 [facility] for visit Narrative* Diagnostic Procedure Only (Routine) - Closed Specialty Diagnoses / Procedures Referred By Contac t Referred To Contact [facility] IMAGING Diagnoses Encounter for screening mammogram for breast cancer Family history of malignant neoplasm of breast Procedures ZOLTAN SCREENING W JOSE RAFAEL SCREENING DIGITAL BREAST TOMOSYNTHESIS BI SCREENING MAMMOGRAPHY BI 2-VIEW BREAST INC CAD Regine Peña MD [address] [place] [address] [facility] [address] [place] [address] Referral ID Status Reason Start Date Expiration Date V isits Requested Visits Authorized [id number] Closed Auto-Generate d Referral 06/01/2023 06/30/2024 1 1 [facility] for visit Narrative* Diagnostic Procedure Only (Routine) - Closed Specialty Diagnoses / Procedures Referred By Contac t Referred To Contact [facility] IM[facility] Diagnoses Breast pain Mass of upper outer quadrant of left breast Procedures ZOLTAN DIAGNOSTIC BILATERAL DIAGNOSTIC MAMMOGRAPHY COMPUTER-AIDED DETCJ Suman Tim, FAY.RECEPTIONIST/TELEPHONE OPERATOR [address] [place] [address] [facility] [address] [place] [address] Referral ID Status Reason Start Date Expiration Date V isits Requested Visits Authorized [id number] Closed Auto-Generate d Referral 11/13/2024 10/17/2025 1 1 [facility] Chief Complaint and Reason for Visit Chief Complaint FOOT WOUND Chief Complaint Admit Date COUGH- CXR June 12, 2025 4: 48pm Advance Directives No Advanced Directives Records FoundLatest Code Status on File Code Status Date Activated Date Inactivated Comments Full Code 09/23/2012 12:17 PM 09/26/2012 2:44 PM Summary Purpose Family History No Family History Records FoundNo Family History Records FoundNo Family History Records FoundNo Family History Records FoundNo Family History Records Found Reason for Referral Specialty Diagnoses / Procedures Referred By Ying stern Referred To Contact Diagnoses Family history of malignant neoplasm of breast Procedures CONSULT TO MEDICAL GENETICS - CANCER MEDICAL GENETICS COUNSELING EACH 30 MINUTES Regine Peña MD [address] [place] [address] [facility] [address] [place] [address] Referral ID Status Reason Start Date Expiration Date Visits Requested Visits Authorized [id number] Pending Review PCP Requested Referral Auto-Generate d Referral 06/01/2023 05/31/2024 1 1 Specialty Diagnoses / Procedures Referred By Ying stern Referred To Contact [facility] IMAGING Diagnoses Encounter for screening mammogram for breast cancer Family history of malignant neoplasm of breast Procedures ZOLTAN SCREENING W JOSE RAFAEL SCREENING DIGITAL BREAST TOMOSYNTHESIS BI SCREENING MAMMOGRAPHY BI 2-VIEW BREAST INC CAD Regine Peña MD [address] [place] [address] [facility] [address] [place] [address] Referral ID Status Reason Start Date Expiration Date Visits Requested Visits Authorized [id number] Pending Review Auto-Generat ed Referral 06/01/2023 06/30/2024 1 1 Additional Source Comments Source Comments (unrecognize d section and content) In the event this informatio n is protected by the Federal Confidentiality of Alcohol and Drug Abuse Patient Records regulations: The Federal rules restrict any use of the information to criminally investigate or prosecute any alcohol or drug abuse patient.[facility] the event this information is protected by the Federal Confidentiality of Alcohol and Drug Abuse Patient Records regulations: The Federal rules restrict any use of the information to criminally investigate or prosecute any alcohol or drug abuse patient.[facility] West[facility] the event this information is protected by the Federal Confidentiality of Alcohol and Drug Abuse Patient Records regulations: The Federal rules restrict any use of the information to criminally investigate or prosecute any alcohol or drug abuse patient.[facility] the event this information is protected by the Federal Confidentiality of Alcohol and Drug Abuse Patient Records regulations: The Federal rules restrict any use of the information to criminally investigate or prosecute any alcohol or drug abuse patient.[facility] the event this information is protected by the Federal Confidentiality of Alcohol and Drug Abuse Patient Records regulations: The Federal rules restrict any use of the information to criminally investigate or prosecute any alcohol or drug abuse patient.[facility] the event this information is protected by the Federal Confidentiality of Alcohol and Drug Abuse Patient Records regulations: The Federal rules restrict any use of the information to criminally investigate or prosecute any alcohol or drug abuse patient.[facility] West[facility] the event this information is protected by the Federal Confidentiality of Alcohol and Drug Abuse Patient Records regulations: The Federal rules restrict any use of the information to criminally investigate or prosecute any alcohol or drug abuse patient.[facility] the event this information is protected by the Federal Confidentiality of Alcohol and Drug Abuse Patient Records regulations: The Federal rules restrict any use of the information to criminally investigate or prosecute any alcohol or drug abuse patient.[facility] the event this information is protected by the Federal Confidentiality of Alcohol and Drug Abuse Patient Records regulations: The Federal rules restrict any use of the information to criminally investigate or prosecute any alcohol or drug abuse patient.[facility] the event this information is protected by the Federal Confidentiality of Alcohol and Drug Abuse Patient Records regulations: The Federal rules restrict any use of the information to criminally investigate or prosecute any alcohol or drug abuse patient.[facility] the event this information is protected by the Federal Confidentiality of Alcohol and Drug Abuse Patient Records regulations: The Federal rules restrict any use of the information to criminally investigate or prosecute any alcohol or drug abuse patient.[facility] the event this information is protected by the Federal Confidentiality of Alcohol and Drug Abuse Patient Records regulations: The Federal rules restrict any use of the information to criminally investigate or prosecute any alcohol or drug abuse patient.[facility] the event this information is protected by the Federal Confidentiality of Alcohol and Drug Abuse Patient Records regulations: The Federal rules restrict any use of the information to criminally investigate or prosecute any alcohol or drug abuse patient.[facility] the event this information is protected by the Federal Confidentiality of Alcohol and Drug Abuse Patient Records regulations: The Federal rules restrict any use of the information to criminally investigate or prosecute any alcohol or drug abuse patient.[facility]In the event this information is protected by the Federal Confidentiality of Alcohol and Drug Abuse Patient Records regulations: The Federal rules restrict any use of the information to criminally investigate or prosecute any alcohol or drug abuse patient.[facility]In the event this information is protected by the Federal Confidentiality of Alcohol and Drug Abuse Patient Records regulations: The Federal rules restrict any use of the information to criminally investigate or prosecute any alcohol or drug abuse patient.[facility] the event this information is protected by the Federal Confidentiality of Alcohol and Drug Abuse Patient Records regulations: The Federal rules restrict any use of the information to criminally investigate or prosecute any alcohol or drug abuse patient.[facility] West[facility] the event this information is protected by the Federal Confidentiality of Alcohol and Drug Abuse Patient Records regulations: The Federal rules restrict any use of the information to criminally investigate or prosecute any alcohol or drug abuse patient.[facility] Reason for Visit (unrecogniz ed section and content) Reason Comments Radiology US Specialty Diagnoses / Procedures Referred By Contac t Referred To Contact [facility] Diagnoses Breast pain Procedures ZOLTAN DIAGNOSTIC BILAT DIAGNOSTIC MAMMOGRAPHY COMPUTER-AIDED DETCJ Regine Silveira MD [address] [place] [address] [facility] [address] [place] [address] Referral ID Status Reason Start Date Expiration Date V isits Requested Visits Authorized [id number] Closed Auto-Generate d Referral 11/05/2021 12/05/2022 1 1 Reason Comments Physical c/o neck pain x 1wee k Reason Comments Results Reason Comments Foot Injury Reason Comments Yearly Exam Reason Comments Results Genetic testing nega tive Reason Comments Mammogram Result Call Back Reason Comments Radiology Mammogram Specialty Diagnoses / Procedures Referred By Contac t Referred To Contact [facility] Diagnoses Abnormal mammogram Procedures ZOLTAN DIAGNOSTIC LEFT DIAGNOSTIC MAMMOGRAPHY COMPUTER-AIDED DETCJ UNI Regine Peña MD [address] [place] [address] [facility] [address] [place] [address] Referral ID Status Reason Start Date Expiration Date V isits Requested Visits Authorized [id number] Closed Auto-Generate d Referral 01/20/2024 02/18/2025 1 1 Reason Comments Breast Problem Left Breast Lump. Reason Comments Yearly Exam Care Teams (unrecognized sec tion and content) X Ray Technologist Relationship Specialty Start Date End Date Mere Grier MD [address] [facility] [place] [address] PCP - General Internal Medicine 10/01/17 X Ray Technologist Relationship Specialty Start Date End Date Mere Grier MD [address] [place] [place] [address] PCP - General Internal Medicine 10/01/17 X Ray Technologist Relationship Specialty Start Date End Date Mere Grier MD [address] [place] [address] PCP - General Internal Medicine 10/01/17 Team Status: Active Member Role Status Dates Dr. Mere Grier MD Primary Care Provider Active Team Status: Inactive Member Role Status Dates Dr. Mere Grier MD Primary Care Provider Active Dr. Devika Matthews MD Attending Provider, Referring Pro vider Active X Ray Technologist Relationship Specialty Start Date End Date Mere Grier MD [address] [facility], [place] [id number] PCP - General Internal Medicine 10/01/17 Team Status: Inactive Member Role Status Dates Dr. Mere Grier MD Primary Care Provider Active Dr. Saul Hernandez MD Attending Provider, Referring Pro vider Active X Ray Technologist Relationship Specialty Start Date End Date Mere Grier MD [address] [place] [address] PCP - General Internal Medicine 04/02/23 X Ray Technologist Relationship Specialty Start Date End Date Mere Grier MD [address] [facility] [place] [address] PCP - General Internal Medicine 10/01/17 X Ray Technologist Relationship Specialty Start Date End Date Mere Grier MD [address] [place] [address] PCP - General Internal Medicine 10/01/17 X Ray Technologist Relationship Specialty Start Date End Date Mere Grier MD [address] [place] [address] PCP - General Internal Medicine 10/01/17 X Ray Technologist Relationship Specialty Start Date End Date Mere Grier MD [address] [place] [address] PCP - General Internal Medicine 10/01/17 X Ray Technologist Relationship Specialty Start Date End Date Mere Grier MD [address] [place] [address] PCP - General Internal Medicine 10/01/17 X Ray Technologist Relationship Specialty Start Date End Date Mere Grier MD [address] [place] [address] PCP - General Internal Medicine 10/01/17 X Ray Technologist Relationship Specialty Start Date End Date Mere Grier MD [address] [place] [address] PCP - General Internal Medicine 10/01/17 Team Status: Inactive Member Role Status Dates Dr. Mere Grier MD Primary Care Provider Active Dr. Ashu Richard MD Attending Provider Active X Ray Technologist Relationship Specialty Start Date End Date Mere Grier MD [address] [place] [address] PCP - General Internal Medicine 10/01/17 Manuela Quintanilla PA-C [address] [place] [address] [facility] 09/24/24 Alina Ashley APRN.RECEPTIONIST/TELEPHONE OPERATOR [address] [place] [address] [facility] 09/24/24 Tessa Burt PA-C [address] [place] [address] [facility] 09/24/24 X Ray Technologist Relationship Specialty Start Date End Date Mere Grier MD [address] [place] [address] PCP - General Internal Medicine 10/01/17 Manuela Quintanilla PA-C [address] [place] [address] [phone] [facility] 09/24/24 Alina Ashley APRN.RECEPTIONIST/TELEPHONE OPERATOR [address] [place] [address] [facility] 09/24/24 Tessa Burt PA-C [address] [place] [address] [facility] X Ray Technologist Relationship Specialty Start Date End Date Mere Grier MD [address] [place] [address] PCP - General Internal Medicine 10/01/17 Manuela Quintanilla PA-C [address] [place] [address] [facility] 09/24/24 Alina Ashley APRN.RECEPTIONIST/TELEPHONE OPERATOR [address] [place], [place] [address] [facility] 09/24/24 Tessa Burt PA-C [address] [place], [place] [address] [facility] 09/24/24 X Ray Technologist Relationship Specialty Start Date End Date Mere Grier MD [address] [place], [place] [address] PCP - General Internal Medicine 10/01/17 Manuela Quintanilla PA-C [address] [place] [address] [facility] 09/24/24 Dion, JARETH Fuller [address] [place], [place] [address] [facility] 09/24/24 Tessa Burt PA-C [address] [place], [place] [address] [facility] 09/24/24 Team Status: Active Member Role/Relationship Status Dates Dr. Ashu Richard MD Primary Care Provider Active Team Status: Inactive Member Role/Relationship Status Dates Dr. Ashu Richard MD Primary Care Provider Active Start: May 16, 2025 End: May 16, 2025 [facility] GRAIN ELEVATOR MAN, GRAIN ELEVATOR MAN-C Attending Provider Active Start: May 16, 2025 End: May 16, 2025 Team Status: Active Member Role/Relationship Status Dates Dr. Ashu Richard MD Primary Care Provider Active Start: May 17, 2025 Dr. Ashu Richard MD Attending Provider Active St art: May 17, 2025 Dr. Ashu Richard MD Referring Provider Active St art: May 17, 2025 Team Status: Inactive Member Role/Relationship Status Dates Dr. Ashu Richard MD Primary Care Provider Active Start: May 17, 2025 End: May 17, 2025 Dr. Ashu Richard MD Attending Provider Active St art: May 17, 2025 End: May 17, 2025 Dr. Ashu Richard MD Referring Provider Active art: May 17, 2025 End: May 17, 2025 Team Status: Inactive Member Role/Relationship Status Dates Dr. Ashu Richard MD Primary Care Provider Active Start: June 12, 2025 End: June 12, 2025 Dr. Ashu Richard MD Attending Provider Active art: June 12, 2025 End: June 12, 2025 Dr. Ashu Richard MD Referring Provider Active art: June 12, 2025 End: June 12, 2025 Goals (unrecognized section and content) Goals may be documented in a n alternate sectionGoals may be documented in an alternate sectionGoals may be documented in an alternate sectionGoals may be documented in an alternate sectionGoals may be documented in an alternate sectionGoals may be documented in an alternate section Scheduled Active and Recently Administ ered Medications (unrecognized section and content) Medication Order 04/02/2023 04/03/2023 04/04/2023 ceFEPIme (MAXIPIME) 2 g in dextrose 100 ml premix IVPB (COMPLETED) 2 g, Intravenous, Administer over 0.5 Hours, ONCE, 1 dose, On 04/03/23 at 1315, Infuse STAT doses over 30 minutes. Infuse other doses over 4 hours. 1346 ($$New Bag$$ - Provider: Мария Blunt RN)1415 (Stopped - Provider: Мария Blunt RN) ceFEPIme (MAXIPIME) 2 g in dextrose 100 ml premix IVPB 2 g, Intravenous, Administer over 4 Hours, EVERY 8 HOURS NON-STANDARD, First dose on 04/03/23 at 2200, Until Discontinued, Infuse STAT doses over 30 minutes. Infuse other doses over 4 hours. 2113 ($$New Bag$$ - Provider: Sondra Ojeda RN) 0018 (Rate/Dose Verify - Provider: Sondra Ojeda RN)0114 (Stopped - Provider: Sondra Ojeda RN)0536 ($$New Bag$$ - Provider: Sondra Ojeda RN)0928 (Stopped - Provider: Shelby Bustos, RN) gadoterate Meglumine (DOTAREM) 5 MMOL/10ML injection 3-60 mL (COMPLETED) 3-60 mL, Intravenous, ONCE, 1 dose, On Wed04/02/23 at 1715, Extravasation Risk, MR Procedure 1706 (Given - Radiology - Provider: Misa Gutierrez) Linezolid (ZYVOX) tablet 600 mg 600 mg, Oral, EVERY 12 HOURS, First dose on Wed04/03/23 at 1315, Until Discontinued, Indications: Vancomycin allergy/toxicity, [id number] 1409 (Given - Provider: Мария Blunt, SYDNIE)2105 (Given - Provider: Sondra Ojeda RN) 0912 (Given - Provider: Shelby Bustos, RN) Vancomycin HCl in NaCl (VANCOCIN) 1,000 mg in 200 ml NS premix IVPB (CANCELED) 1,000 mg, Intravenous, Administer over 2 Hours, EVERY 12 HOURS NON-STANDARD, First dose on Wed04/03/23 at 0300, Until Discontinued, Extravasation Risk 0327 ($$New Bag$$ - Provider: Jagruti Adhikari RN)0530 (Stopped - Provider: Jagruti Adhikari RN) Vancomycin HCl in NaCl (Vancocin) 1,250 mg 287.5 ml premade IVPB (COMPLETED) 1,250 mg (rounded from 1,240 mg = 20 mg/kg 62 kg Order-specific weight), Intravenous, Administer over 2 Hours, ONCE, 1 dose, On Wed04/02/23 at 1400 1448 ($$New Bag$$ - Provider: Aidan Dalton RN)1556 (Paused - Provider: Aidan Dalton RN)1558 (Paused - Provider: Aidan Dalton RN - Comment: Patient to MRI)1805 (Restarted - Provider: Aidan Dalton RN)1812 (Restarted - Provider: Aidan Dalton RN)1851 (Stopped - Provider: Aidan Dalton RN)1851 (Stopped - Provider: Aidan Dalton, SYDNIE)1905 (Stopped - Provider: Aidan Dalton RN) PRN Medication Order 04/02/2023 04/03/202304/04/2023 Acetaminophen (TYLENOL) tablet 650 mg 650 mg, Oral, EVERY 4 HOURS NEEDED, Starting on Wed04/02/23 at 1355, Until 04/04/23 at 1140, Mild Pain, Oral temp > 100.4 F, Maximum dose of acetaminophen is 4000 mg from all sources in 24 hours. alum/mag hydrox.-simethicone oral suspension 30 mL 30 mL, Oral, EVERY 6 HOURS NEEDED, Starting on Wed04/02/23 at 1355, Until 04/04/23 at 1140, Indigestion, Per 5 mL is equivalent to: (Alum-Mag Hydroxide 200-225 mg and Simethicone 20 mg) and (Alum-Mag Hydroxide 200-200 mg and Simethicone 20 mg) Sodium chloride (PF) 0.9 % injection 1-100 mL (COMPLETED) 1-100 mL, Intravenous, ONCE NEEDED, 1 dose, Starting on Wed04/02/23 at 1706, Until Wed04/02/23 at 1706, Flush, MR Procedure 1706 (Given - Provider: Misa Gutierrez) INFORMATION SOURCE (unrecogn ized section and content) DATE CREATED AUTHOR 04/10/2023 [facility] DATE CREATED AUTHOR AUTHOR'S ORGANIZ ATION 08/01/2023 [facility] DATE CREATED AUTHOR AUTHOR'S ORGANIZ ATION 10/31/2024 [facility] DATE CREATED AUTHOR AUTHOR'S ORGANIZ ATION 11/13/2024 [facility] DATE CREATED AUTHOR AUTHOR'S ORGANIZ ATION 07/25/2025 [facility] FOR RECORDS PERTAINING TO PATIENTS WHO ARE OR HAVE BEEN ENROLLED IN A CHEMICAL DEPENDENCY/SUBSTANCEABUSE PROGRAM, SOME INFORMATION MAY BE OMITTED. This clinical summary was aggregated from multiple sources. Caution should be exercised in using it in the provision of clinical care. This summary normalizes information from multiple sources, and as a consequence, information in this document may materially change the coding, format and clinical context of patient data. In addition, data may be omitted in some cases. CLINICAL DECISIONS SHOULD BE BASED ON THE PRIMARY CLINICAL RECORDS. [facility]. provides no warranty or guarantee of the accuracy or completeness of information in this document.
[2025-10-05 13:15] LABS: Cholesterol 201 mg/dL (<=200); Low Density Lipoprotein Calc. 131 mg/dL; Triglycerides 82 mg/dL; Very Low Density Lipoprotein 16 mg/dL (5-40); cholesterol:hdl ratio screen 3.62
== END | disposition home or self-care (01) ==
LOC: MFPLAB 10:35
PROVIDERS: PCP Family Medicine; Visit Provider Family Medicine
DX: Z13.1 Encounter for screening for diabetes mellitus (principal); Z13.220 Encounter for screening for lipoid disorders
CPT/HCPCS: 36415; 80061; 83036